=== PATIENT | male | born 1945 | race Caucasian/White ===

== ENCOUNTER 2016-10-20 17:25 | Inpatient (IN) | payer OTHER ==
[~2016-10-20] VITALS: Ht 170.2 cm; Wt 70.8 kg
[2016-10-20 17:32] VITALS: BP 107/58
--- NOTE | 2016-10-20 17:38 | NUR ---
Patient to bed 04.
--- NOTE | 2016-10-20 17:38 | NUR ---
PATIENT PRESENTS TO ED WITH generalized weakness, fatigue, intermittent dysuria x 1 month . PT STATES . moderate nausea with poor appetite SKIN IS PINK/WARM/DRY; AAOX4 WITH EVEN AND STEADY GAIT; LUNGS CLEAR BL; HR EVEN AND REGULAR; PT DENIES ANY FEVER, CP, SOB, OR COUGH AT THIS TIME; PATIENT STATES PAIN OF 0/10 AT THIS TIME; VSS; PATIENT POSITIONED FOR COMFORT; HOB ELEVATED; BEDRAILS UP X2; BED DOWN. ER MD MADE AWARE OF PT STATUS.
--- NOTE | 2016-10-20 17:40 | NUR ---
Dr. Durham evaluating patient at bedside.
--- NOTE | 2016-10-20 17:59 | NUR ---
X-Ray at bedside.
[2016-10-20] MEDS ORDERED: cefTRIAXone 1,000 MG VIAL ONE (18:04)
[2016-10-20 18:10] LABS: HEMATOCRIT 46.4 % (36-52); HEMOGLOBIN 15.3 g/dL (12.0-18.0); MEAN CORPUSCULAR HEMOGLOBIN 32 pg (27-31); MEAN CORPUSCULAR HGB CONC 33 g/dL (33-37); MEAN CORPUSCULAR VOLUME 98 fL (80-94); PLATELET COUNT (AUTO) 182 K/uL (140-450); RED BLOOD CELL COUNT(AUTO) 4.75 MIL/uL (4.20-6.10); RED CELL DISTRIBUTION WIDTH 12.5 % (11.6-13.7); WHITE BLOOD COUNT (AUTO) 13.4 K/uL (4.8-10.8)
[2016-10-20] MEDS ORDERED: NACL 0.9% 1,000 ML IV ONE (18:15)
[2016-10-20 18:20] LABS: ANION GAP 14.8 (8-16); CALCIUM 7.8 mg/dL (8.5-10.1); CARBON DIOXIDE 23.5 mmol/L (21-32); CREATININE 1.7 mg/dL (0.7-1.3); POTASSIUM 4.3 mmol/L (3.5-5.1)
[2016-10-20 18:23] LABS: INR 1.2 (0.8-1.2); PARTIAL THROMBOPLASTIN TIME 29.9 secs (22-35.6); PROTHROMBIN TIME 12.2 secs (10.8-13.4)
[2016-10-20 18:26] LABS: TOTAL BILIRUBIN 0.7 mg/dL (0.0-1.0); TOTAL PROTEIN, SERUM 7.9 g/dL (6.4-8.2)
[2016-10-20 18:34] LABS: BAND % (MANUAL) 17 % (0-8); EOSINOPHILS % (MANUAL) 2 % (0-4); LACTIC ACID 2.5 mmol/L (0.4-2.0); LYMPHOCYTES % (MANUAL) 18 % (20-46); MONOCYTES % (MANUAL) 3 % (5-12); NEUTROPHILS % (MANUAL) 60 (43-65); PLATELET ESTIMATE ADEQUATE
--- NOTE | 2016-10-20 18:47 | NUR ---
Pt transferred to Tele rm 123B via [facility]
--- NOTE | 2016-10-20 18:47 | NUR ---
no s/s apparent distress, holding conversation with family member at bedside. denies pain or sob at this time.
[2016-10-20 19:15] VITALS: BP 99/62
--- NOTE | 2016-10-20 19:15 | NUR ---
ADMITTED A70M FROM ER. CAME BY NIKIA ACCOMPANIED BY DAUGHTER. BRUNA Loza4. AMBULATORY. WITH NO ACUTE DISTRESS NOTED. CAME DUE TO ABNORMAL EKG FROM DR. DEMPSEY, WITH UTI . DENIES ANY PAIN NOR DISCOMFORT NOTED. HAS HL ON THE RT FA #[id number], CLEAR AND PATENT. PLACED COMFORTABLY IN BED. SKIN INTACT. VITAL SIGNS TAKEN BP ON LOW SIDE 99/62. PLAN OF CARE DISCUSSED AND VERBALIZED UNDERSTANDING. ON TELE MONITOR. CALL LIGHT AND URINAL PLACED WITHIN EASY REACH, BED ON LOW POSITION. WILL CONTINUE TO MONITOR WHILE FOLLOWING UP ADMIT ORDERS.
[2016-10-20] MEDS ORDERED: ACETAMINOPHEN 325 MG TAB PO PRN (19:30)
[2016-10-20] MEDS ORDERED: HYDROcodone/APAP 7.5/325 MG 1 TAB PO PRN (19:30)
[2016-10-20] MEDS ORDERED: MORPHINE SULFATE 2 MG/ML SYR IVP PRN (19:30)
[2016-10-20] MEDS ORDERED: ONDANSETRON 4 MG/2 ML VIAL IM/IVP PRN (19:30)
[2016-10-20] MEDS ORDERED: DOCUSATE SODIUM 100 MG GELCAP PO PRN (19:30)
--- NOTE | 2016-10-20 20:45 | NUR ---
US KIDNEY DONE AT BEDSIDE . WILL FOLLOW UP RESULT.
[2016-10-20] MEDS: NACL 0.9% 1,000 ML IV SCH (21:59)
[2016-10-20] MEDS ORDERED: DEXTROSE 50% 50 ML SYR IVP PRN (22:00)
[2016-10-20] MEDS ORDERED: RIVA20TA4 PO (22:39)
[2016-10-20] MEDS ORDERED: SITA100T8 PO (22:39)
[2016-10-20] MEDS ORDERED: METO50TA69 PO (22:39)
[2016-10-20] MEDS ORDERED: ATOR40TA PO (22:43)
[2016-10-20] MEDS ORDERED: METF500T PO (22:43)
[2016-10-20] MEDS ORDERED: SPIR50TA PO (22:43)
[2016-10-20] MEDS ORDERED: LISI5TAB18 PO (22:43)
--- NOTE | 2016-10-20 22:48 | NUR ---
US VENOUS AND ARTERIAL DONE AT BEDSIDE. . WILL FOLLOW UP RESULTS.
[2016-10-20 23:48] VITALS: BP 118/72
--- NOTE | 2016-10-21 00:05 | NUR ---
SLEEPING AT THIS TIME. NO S/SF ANY DISTRESS NOR DISCOMFORT NOTED. WILL CONTINUE TO MONITOR.
--- NOTE | 2016-10-21 03:30 | NUR ---
PT EATING SOME SANDWICH AT THIS TIME.
[2016-10-21 04:00] VITALS: BP 125/69
[2016-10-21 04:29] LABS: APPEARANCE,URINE SL CLOUDY (CLEAR); BILIRUBIN,URINE NEGATIVE (NEGATIVE); BLOOD, URINE 1+ (NEGATIVE); COLOR,URINE YELLOW (YELLOW); LEUKOCYTE ESTERASE ,URINE TRACE (NEGATIVE); NITRITE, URINE NEGATIVE (NEGATIVE); PROTEIN,URINE NEGATIVE (NEGATIVE); UGLUCOSE NEGATIVE (NEGATIVE); UROBILINOGEN,URINE 0.2 EU/dL (0.2 - 1)
--- NOTE | 2016-10-21 04:30 | NUR ---
URINE SPECIMEN FOR UA SEND TO LAB . WILL FOLLOW UP RESULT.
[2016-10-21 04:42] LABS: BACTERIA,URINE FEW /HPF (None Seen)
[2016-10-21 04:43] LABS: SQUAMOUS EPITHELIAL CELL,UR 0-3 (FEW) /LPF (0-3 (FEW)); WHITE BLOOD CELL CASTS,URINE 0-3 /LPF (None Seen)
[2016-10-21 06:13] LABS: BASOPHILS # (AUTO) 0.1 K/uL (0.00-0.22); BASOPHILS % (AUTO) 0.7 % (0.0-2.0); EOSINOPHILS # (AUTO) 0.2 K/uL (0-0.4); EOSINOPHILS % (AUTO) 2.1 % (0.0-4.0); HEMATOCRIT 36.7 % (36-52); HEMOGLOBIN 12.4 g/dL (12.0-18.0); LYMPHOCYTES # (AUTO) 1.9 K/uL (2.0-11.5); LYMPHOCYTES % (AUTO) 16.9 % (20.5-51.1); MEAN CORPUSCULAR HEMOGLOBIN 33 pg (27-31); MEAN CORPUSCULAR HGB CONC 34 g/dL (33-37); MEAN CORPUSCULAR VOLUME 97 fL (80-94); MONOCYTES % (AUTO) 9.2 % (1.7-9.3); NEUTROPHILS # (AUTO) 8.2 K/uL (1.8-7.7); NEUTROPHILS % (AUTO) 71.1 % (42.2-75.2); PLATELET COUNT (AUTO) 157 K/uL (140-450); RED BLOOD CELL COUNT(AUTO) 3.77 MIL/uL (4.20-6.10); RED CELL DISTRIBUTION WIDTH 12.4 % (11.6-13.7); WHITE BLOOD COUNT (AUTO) 11.4 K/uL (4.8-10.8)
[2016-10-21 06:36] LABS: T4 (THYROXINE) 7.6 ug/dL (4.5-12.0)
[2016-10-21 06:38] LABS: ANION GAP 12.2 (8-16); CARBON DIOXIDE 21.6 mmol/L (21-32); CREATININE 1.2 mg/dL (0.7-1.3); POTASSIUM 3.8 mmol/L (3.5-5.1)
[2016-10-21] MEDS: NACL 0.9% 1,000 ML IV SCH ×3 (06:41→18:36)
[2016-10-21 06:46] LABS: CHOL/HDL RATIO 5.2 (1-4.5); PHOSPHORUS 2.7 mg/dL (2.5-4.9)
[2016-10-21] MEDS: BLOOD GLUCOSE MONITORING 1 DEV DEV FS SCH ×4 (06:48→20:16)
[2016-10-21] MEDS: INSULIN LISPRO SLIDING SCALE 100 UNITS/ML VIAL SUBQ PRN ×4 (06:50→21:20)
--- NOTE | 2016-10-21 06:50 | NUR ---
BLOOD SUGAR WAS CHECKED RESULT 200. INSULIN COVERAGE GIVEN SUB Q.
[2016-10-21 07:08] LABS: MAGNESIUM 0.8 mg/dL (1.8-2.4)
--- NOTE | 2016-10-21 07:12 | NUR ---
MAGNESIUM LEVEL 0.[address] WESLEY MADE AWARE. WILL SEE PT THIS AM.
--- NOTE | 2016-10-21 07:20 | NUR ---
RECEIVED REPORT FROM NIGHT NURSE, PT IS AAOX4, ON ROOM AIR, IV TO RIGHT FA 20G INFUSING WELL , SKIN INTACT, SCD'S NOTED, INITIAL ASSESSMENT COMPLETED, REVIEWED PLAN OF CARE WITH PT, PT VERBALIZED UNDERSTANDING. ALL SAFETY PRECAUTIONS MET, ALL NEEDS MET. CALL LIGHT WITHIN REACH. WILL CONTINUE TO MONITOR.
--- NOTE | 2016-10-21 07:20 | NUR ---
ENDORSED PT IN STABLE CONDITION TO AM NURSE.
[2016-10-21] MEDS ORDERED: MAG SULF 2000 MG/WATER PREMIX 50 ML IV SCH (07:31)
[2016-10-21 07:39] VITALS: BP 116/69
[2016-10-21] MEDS: SPIRONOLACTONE 50 MG TAB PO SCH (08:24)
[2016-10-21] MEDS: RIVAROXABAN 10 MG TAB PO SCH (08:33)
--- NOTE | 2016-10-21 08:33 | NUR ---
DUE MEDICATIONS GIVEN PT TOLERATED WELL, BP WNL BP MEDICATION NOT GIVEN.
[2016-10-21] MEDS: LISINOPRIL 5 MG TAB PO SCH (08:34)
[2016-10-21] MEDS: METOPROLOL 50 MG TAB PO SCH (08:34)
--- NOTE | 2016-10-21 09:17 | NUR ---
PATIENT HAS BEEN SCREENED AND CATEGORIZED HIGH NUTRITION RISK. PATIENT WILL BE SEEN WITHIN 1-2 DAYS OF ADMISSION. 10/21/16-10/22/[address]
--- NOTE | 2016-10-21 11:31 | NUR ---
CM NOTE INITIAL REVIEW FAXED TO [facility] (FAX# [phone], ATTN: BRITNI Mcdonald [phone]) AND [facility] (FAX# [phone], C: [phone], OPT 3,7,1) [facility] TRACKING #[id number]
[2016-10-21 12:00] VITALS: BP 115/60
--- NOTE | 2016-10-21 12:13 | NUR ---
10/21/16 RD INITIAL ASSESSMENT COMPLETED PLEASE REFER TO NUTRITION ASSESSMENT UNDER CARE ACTIVITY FOR ESTIMATED NUTRITIONAL NEEDS. 1. CONTINUE 60 G CONSISTENT CARBOHYDRATE DIET 2. ADD HEALTH SHAKE TID 3. PROVIDE NUTRITION THERAPY EDUCATION NEEDED 4. RD TO FOLLOW-UP 2-3 DAYS; HIGH RISK [address]
--- NOTE | 2016-10-21 12:20 | NUR ---
PT CURRENTLY EATING LUNCH, NO S/S OF DISTRESS NOTED, ALL NEEDS MET. CALL LIGHT WITHIN REACH. WILL CONTINUE TO MONITOR.
--- NOTE | 2016-10-21 14:25 | NUR ---
PT VISITING WITH FAMILY. NO S/S OF DISTRESS NOTED. WILL CONTINUE TO MONITOR.
[2016-10-21 16:00] VITALS: BP 114/74
--- NOTE | 2016-10-21 17:29 | NUR ---
DUE MEDICATION GIVEN. PT CURRENTLY VISITING WITH FAMILY. ALL NEEDS MET. WILL CONTINUE TO MONITOR.
--- NOTE | 2016-10-21 19:30 | NUR ---
RECEIVED REPORT FROM DAY RN AT BEDSIDE, PATIENT IS AAO X4 ON ROOM AIR, NO SOB OR SIGN OF DISTRESS AT THIS TIME, PT DENIES PAIN, IV TO RIGHT FA PATENT AND INTACT, SKIN INTACT, SAFETY MEASURES CHECKED, CALL LIGHT WITHIN REACH. DISCUSSED PLAN OF CARE WITH PATIENT, PATIENT VERBALIZED UNDERSTANDING, WILL CONTINUE TO MONITOR.
--- NOTE | 2016-10-21 19:30 | NUR ---
ENDORSED PLAN OF CARE TO NIGHT NURSE, PT IN STABLE CONDITION.
[2016-10-21 20:00] VITALS: BP 144/66
--- NOTE | 2016-10-21 20:18 | NUR ---
PM MEDS ADMINISTERED, PT TOLERATED WELL, CALL LIGHT WITHIN REACH. WILL CONTINUE TO MONITOR.
[2016-10-21] MEDS ORDERED: ATORVASTATIN 20 MG TAB PO SCH (21:00)
[2016-10-22] VITALS: BP 115/60
--- NOTE | 2016-10-22 00:27 | NUR ---
VITAL SIGNS STABLE, NO SOB OR SIGN OF DISTRESS AT THIS TIME, CALL LIGHT WITHIN REACH. WILL CONTINUE TO MONITOR.
--- NOTE | 2016-10-22 02:30 | NUR ---
PT SLEEPING, NO SIGN OF DISTRESS, CALL LIGHT WITHIN REACH. WILL CONTINUE TO MONITOR.
[2016-10-22 04:00] VITALS: BP 126/72
--- NOTE | 2016-10-22 04:00 | NUR ---
PT STATED HE WOKE UP AND HIS GOWN AND HAIR WERE ALL YET AND DIDNT KNOW WHY, CHECKED BLOOD SUGAR, 127, NO FEVER, PT NOT IN ANY DISTRESS, CALL LIGHT WITHIN REACH. WILL CONTINUE TO MONITOR.
--- NOTE | 2016-10-22 04:35 | NUR ---
VITAL SIGNS STABLE, NO SOB OR SIGN OF DISTRESS, CALL LIGHT WITHIN REACH. WILL CONTINUE TO MONITOR.
[2016-10-22 06:08] LABS: BASOPHILS # (AUTO) 0.2 K/uL (0.00-0.22); BASOPHILS % (AUTO) 1.4 % (0.0-2.0); EOSINOPHILS # (AUTO) 0.4 K/uL (0-0.4); EOSINOPHILS % (AUTO) 2.9 % (0.0-4.0); HEMATOCRIT 38.8 % (36-52); HEMOGLOBIN 12.9 g/dL (12.0-18.0); LYMPHOCYTES # (AUTO) 2.3 K/uL (2.0-11.5); LYMPHOCYTES % (AUTO) 18.6 % (20.5-51.1); MEAN CORPUSCULAR HEMOGLOBIN 32 pg (27-31); MEAN CORPUSCULAR HGB CONC 33 g/dL (33-37); MEAN CORPUSCULAR VOLUME 97 fL (80-94); MONOCYTES # (AUTO) 1.3 K/uL (0.8-1.0); MONOCYTES % (AUTO) 10.8 % (1.7-9.3); NEUTROPHILS # (AUTO) 8.2 K/uL (1.8-7.7); NEUTROPHILS % (AUTO) 66.3 % (42.2-75.2); PLATELET COUNT (AUTO) 176 K/uL (140-450); RED BLOOD CELL COUNT(AUTO) 4.01 MIL/uL (4.20-6.10); RED CELL DISTRIBUTION WIDTH 12.6 % (11.6-13.7); WHITE BLOOD COUNT (AUTO) 12.4 K/uL (4.8-10.8)
[2016-10-22 06:28] LABS: ANION GAP 9.6 (8-16); CALCIUM 7.4 mg/dL (8.5-10.1); CARBON DIOXIDE 26.5 mmol/L (21-32); POTASSIUM 4.1 mmol/L (3.5-5.1)
[2016-10-22 06:31] LABS: PHOSPHORUS 2.6 mg/dL (2.5-4.9)
[2016-10-22] MEDS: BLOOD GLUCOSE MONITORING 1 DEV DEV FS SCH ×3 (06:38→16:38)
--- NOTE | 2016-10-22 07:31 | NUR ---
ENDORSED PATIENT TO DAY RN AT BEDSIDE, PATIENT IN STABLE CONDITION
[2016-10-22 07:50] VITALS: BP 121/71
[2016-10-22] MEDS: SPIRONOLACTONE 50 MG TAB PO SCH (08:48)
[2016-10-22] MEDS: METOPROLOL 50 MG TAB PO SCH (08:48)
[2016-10-22] MEDS: RIVAROXABAN 10 MG TAB PO SCH (08:51)
[2016-10-22] MEDS: LISINOPRIL 5 MG TAB PO SCH (08:51)
--- NOTE | 2016-10-22 08:51 | NUR ---
DUE MEDICATION GIVEN, PT TOLERATED WELL. ALL NEEDS MET. WILL CONTINUE TO MONITOR,
[2016-10-22] MEDS ORDERED: MAG SULF 2000 MG/WATER PREMIX 50 ML IV SCH ×2 (09:45→12:00)
--- NOTE | 2016-10-22 11:20 | NUR ---
PT RESTING IN BED. O S/S OF DISTRESS NOTED. ALL NEEDS MET. WILL CONTINUE TO MONITOR.
[2016-10-22] MEDS: NACL 0.9% 1,000 ML IV SCH (11:28)
[2016-10-22 12:00] VITALS: BP 97/67
--- NOTE | 2016-10-22 12:08 | NUR ---
CM NOTE CONCURRENT REVIEW FAXED TO [facility] (FAX# [phone], ATTN: BRITNI Mcdonald [phone]) AND [facility] (FAX# [phone], C: [phone], OPT 3,7,1)
[2016-10-22] MEDS: INSULIN LISPRO SLIDING SCALE 100 UNITS/ML VIAL SUBQ PRN (12:37)
--- NOTE | 2016-10-22 12:37 | NUR ---
DUE MEDICATIONS GIVEN.ALL NEEDS MET. WILL CONTINUE TO MONITOR.
--- NOTE | 2016-10-22 14:15 | NUR ---
PT RESTING IN BED, NO S/S OF DISTRESS NOTED. ALL NEEDS MET. WILL CONTINUE TO MONITOR.
[2016-10-22 16:00] VITALS: BP 116/75
[2016-10-22] MEDS ORDERED: SULF-58 PO (16:33)
[2016-10-22] MEDS ORDERED: LACT1.4C PO (16:37)
--- NOTE | 2016-10-22 17:05 | NUR ---
DISCUSSED DISCHARGE PLAN WITH PT, PT VERBALIZED UNDERSTANDING
--- NOTE | 2016-10-22 17:49 | NUR ---
PT SIGNED ALL DISCHARGE PAPERWORK, DISCHARGE EDUCATION GIVEN, FOLLOW UP INFORMATION GIVEN, PRESCRIPTION GIVEN, PT VERBALIZED UNDERSTANDING, IV REMOVED TIP INTACT, PT AWAITING FOR FAMILY TO PICK HIM UP.
--- NOTE | 2016-10-22 18:51 | NUR ---
PT WAS WALKED OUT TO FRONT LOBBY IN STABLE CONDITION.
== END 2016-10-22 18:53 | disposition home or self-care (01) | DRG 871 ==
LOC: MED 17:25 → MTU 18:49
PROVIDERS: ADMIT Family Medicine; ATTEND Family Medicine
DX: A41.9 Sepsis, unspecified organism (principal); G93.41 Metabolic encephalopathy; N17.0 Acute kidney failure with tubular necrosis; I50.43 Acute on chronic combined systolic (congestive) and diastolic (congestive) heart failure; N39.0 Urinary tract infection, site not specified; E87.1 Hypo-osmolality and hyponatremia; E44.0 Moderate protein-calorie malnutrition; E11.65 Type 2 diabetes mellitus with hyperglycemia; E83.42 Hypomagnesemia; I11.0 Hypertensive heart disease with heart failure; I44.7 Left bundle-branch block, unspecified; Z96.651 Presence of right artificial knee joint; E86.0 Dehydration; E83.51 Hypocalcemia; Z53.29 Procedure and treatment not carried out because of patient's decision for other reasons; I48.91 Unspecified atrial fibrillation; E11.51 Type 2 diabetes mellitus with diabetic peripheral angiopathy without gangrene; E78.5 Hyperlipidemia, unspecified; Z68.24 Body mass index [BMI] 24.0-24.9, adult; Z79.899 Other long term (current) drug therapy; Z87.891 Personal history of nicotine dependence
CPT/HCPCS: 36415; 71010; 76770; 80048; 80053; 81001; 82550; 82553; 82948; 83036; 83605; 83735; 83874; 83880; 84100; 84436; 84443; 84479; 84484; 85025; 85610; 85730; 87040; 87077; 87081; 87086; 87186; 93005; 93308; 93925; 93970; 96365; 99285; J0696; J1815; J3475; J7030; J7060; Q0092

== ENCOUNTER 2018-07-25 12:49 | Inpatient (IN) | payer OTHER ==
--- NOTE | 2018-07-18 22:10 | NUR ---
Frequent checks made, no distress noted. Addendum: 07/27/18 at 0133 by Samir Hilario RN Date is 07/26/2018 not 07/18/2018
[~2018-07-25] VITALS: Ht 170.2 cm; Wt 81.6 kg
[~2018-07-25 12:49] MED LIST: ATOR40TA PO; LACT1.4C PO; LISI5TAB18 PO; METF500T PO; METO50TA20 PO; RIVA20TA4 PO; SITA100T8 PO; SPIR50TA PO; SULF-58 PO
[2018-07-25 13:08] VITALS: BP 124/74
--- NOTE | 2018-07-25 13:25 | NUR ---
PT AMBULATED TO ER BED 03
--- NOTE | 2018-07-25 13:31 | NUR ---
BIB DAUGHTER WITH C/O SOB FOR ONE WEEK, COUGH, REFERRED FROM PMD. HX OF AFIB, HTN, DM. PATIENT STATES PAIN OF 0/10 AT THIS TIME. PATIENT POSITIONED FOR COMFORT; HOB ELEVATED; BEDRAILS UP X2; BED DOWN. ER MD MADE AWARE OF PT STATUS.
--- NOTE | 2018-07-25 13:45 | NUR ---
X RAY AT BEDSIDE
--- NOTE | 2018-07-25 13:47 | NUR ---
EKG AT BEDSIDE
[2018-07-25 14:32] LABS: BASOPHILS # (AUTO) 0.1 K/uL (0.00-0.22); BASOPHILS % (AUTO) 0.7 % (0.0-2.0); EOSINOPHILS # (AUTO) 0.2 K/uL (0-0.4); EOSINOPHILS % (AUTO) 1.9 % (0.0-4.0); HEMATOCRIT 38.9 % (36-52); HEMOGLOBIN 12.3 g/dL (12.0-18.0); LYMPHOCYTES # (AUTO) 1.9 K/uL (2.0-11.5); LYMPHOCYTES % (AUTO) 20.3 % (20.5-51.1); MEAN CORPUSCULAR HEMOGLOBIN 26 pg (27-31); MEAN CORPUSCULAR HGB CONC 32 g/dL (33-37); MEAN CORPUSCULAR VOLUME 83.5 fL (80-94); MONOCYTES # (AUTO) 0.9 K/uL (0.8-1.0); MONOCYTES % (AUTO) 9.7 % (1.7-9.3); NEUTROPHILS # (AUTO) 6.5 K/uL (1.8-7.7); NEUTROPHILS % (AUTO) 67.4 % (42.2-75.2); PLATELET COUNT (AUTO) 192 K/uL (140-450); RED BLOOD CELL COUNT(AUTO) 4.67 MIL/uL (4.20-6.10); RED CELL DISTRIBUTION WIDTH 15.8 % (11.6-13.7); WHITE BLOOD COUNT (AUTO) 9.6 K/uL (4.8-10.8)
[2018-07-25 14:58] LABS: ANION GAP 9.7 (8-16); CARBON DIOXIDE 28.6 mmol/L (21-32); CHLORIDE 107 mmol/L (98-107); CREATININE 1.4 mg/dL (0.7-1.3); GLUCOSE 194 mg/dL (74-106); POTASSIUM 4.3 mmol/L (3.5-5.1); SODIUM SERUM 141 mmol/L (136-145); UREA NITROGEN, BLOOD 27 mg/dL (7-18)
[2018-07-25 15:00] LABS: ALBUMIN 3.3 g/dL (3.4-5.0); ASPARTATE AMINOTRANSFERASE 37 U/L (15-37); TOTAL BILIRUBIN 0.9 mg/dL (0.0-1.0)
[2018-07-25 15:21] LABS: CREATINE KINASE MB 6.2 ng/mL (0-3.6)
[2018-07-25] MEDS ORDERED: FUROSEMIDE 40 MG/4 ML VIAL IVP SCH (15:50)
--- NOTE | 2018-07-25 16:05 | NUR ---
Patient appears to be resting comfortably in bed.BP 133/87. Respirations even and unlabored.DENIES SOB OR PAIN AT THIS TIME. WILL CONTINUE TO MONITOR.
--- NOTE | 2018-07-25 16:31 | NUR ---
PT URENATED 350 CC; YELLOW.
[2018-07-25] MEDS ORDERED: DOCUSATE SODIUM 100 MG GELCAP PO PRN (19:00)
[2018-07-25] MEDS ORDERED: ONDANSETRON 4 MG/2 ML VIAL IM/IVP PRN (19:00)
[2018-07-25] MEDS ORDERED: ACETAMINOPHEN 325 MG TAB PO PRN (19:00)
[2018-07-25] MEDS ORDERED: HYDROcodone/APAP 7.5/325 MG 1 TAB PO PRN (19:00)
[2018-07-25] MEDS ORDERED: LEVO0.124 PO (19:04)
[2018-07-25] MEDS ORDERED: AMIO200T5 PO (19:04)
[2018-07-25] MEDS ORDERED: FURO-572 PO (19:04)
[2018-07-25] MEDS ORDERED: RIVA20TA PO (19:04)
[2018-07-25] MEDS ORDERED: TERA5CAP8 PO (19:04)
[2018-07-25] MEDS ORDERED: ASPI-1718 PO (19:04)
--- NOTE | 2018-07-25 19:12 | NUR ---
Pt report given to CELESTE MOHR. Transfer of care at this time.
--- NOTE | 2018-07-25 19:20 | NUR ---
Bedside report recieved from ONUR Hudson. Transfer of care at this time.
[2018-07-25] MEDS ORDERED: MEDICATION REC. PHARMACY CONS. 1 EA MISC MC PRN (19:30)
[2018-07-25] MEDS ORDERED: MELATONIN 3 MG TAB PO PRN (19:30)
--- NOTE | 2018-07-25 19:30 | NUR ---
RECEIVED BEDSIDE REPORT FROM ER NURSE. PT IN STABLE CONDITION. FAMILY AT BEDSIDE. AAOX4. PT AMBULATES WITHOUT ASSISTANCE. NO C/O PAIN OR SOB AT THIS TIME ON ROOM AIR. SKIN INTACT. IV SITE LAC G20, PATENT AND INTACT. ORIENTED PT TO ROOM. DISCUSSED PLAN OF CARE. PT VERBALIZED UNDERSTANDING. BED IN LOW POSITION. CALL LIGHT WITHIN REACH.
--- NOTE | 2018-07-25 19:31 | NUR ---
Patient will be admitted to care of Dr. Garcia. Admited to [facility]. Will go to room 127B. Belongings list completed. VSS at time of transfer. Report to ONUR Brock. Transfer of care at this time.
[2018-07-25] MEDS ORDERED: DEXTROSE 50% 50 ML SYR IVP PRN (19:35)
[2018-07-25 19:50] LABS: FREE T4 (FREE THYROXINE) 1.27 ng/dL (0.76-1.46); MAGNESIUM 1.6 mg/dL (1.8-2.4); PHOSPHORUS 3.6 mg/dL (2.5-4.9); THYROID STIMULATING HORMONE 4.47 uIU/mL (0.34-3.74)
[2018-07-25] MEDS: NACL 0.9% 1,000 ML IV SCH (19:50)
[2018-07-25 19:59] LABS: PROTHROMBIN TIME 15.1 secs (10.8-13.4)
[2018-07-25 20:00] VITALS: BP 138/80
[2018-07-25] MEDS ORDERED: FUROSEMIDE 20 MG/2 ML VIAL IVP SCH (21:00)
[2018-07-25] MEDS: ATORVASTATIN 20 MG TAB PO SCH (21:34)
[2018-07-25] MEDS: METOPROLOL 25 MG TAB PO SCH (21:34)
[2018-07-25] MEDS: INSULIN LISPRO SLIDING SCALE 100 UNITS/ML VIAL SUBQ PRN (21:36)
[2018-07-25] MEDS: BLOOD GLUCOSE MONITORING 1 DEV DEV FS SCH (21:37)
--- NOTE | 2018-07-25 21:40 | NUR ---
BS CHECKED, 176. GIVEN 2 UNITS OF INSULIN ORDERED. DUE MEDS GIVEN. PT TOLERATED WELL.
[2018-07-25] MEDS ORDERED: MAG SULF 2000 MG/WATER PREMIX 50 ML IV ONE (23:00)
--- NOTE | 2018-07-25 23:45 | NUR ---
APPLIED SCD ON PT'S BOTH LEG. ALL NEEDS ATTENDED AT THIS TIME. CALL LIGHT WITHIN REACH.
[2018-07-26] VITALS: BP 121/68
--- NOTE | 2018-07-26 02:45 | NUR ---
PT SPILLED WATER ON HIS GOWN. ASSISTED PT TO CHANGE GOWN AND UNDERWEAR. ALL NEEDS ATTENDED AT THIS TIME.
--- NOTE | 2018-07-26 04:30 | NUR ---
PT SLEEPING BUT EASILY AROUSABLE. NO S/S OF SOB. NO S/S OF PAIN OR DISCOMFORT. CALL LIGHT WITHIN REACH.
[2018-07-26] MEDS: BLOOD GLUCOSE MONITORING 1 DEV DEV FS SCH ×4 (05:38→21:14)
--- NOTE | 2018-07-26 06:17 | NUR ---
BS CHECKED, 140. NO INSULIN COVERAGE NEEDED.
[2018-07-26] MEDS ORDERED: LEVOTHYROXINE 0.025 MG TAB PO SCH (06:30)
[2018-07-26 06:54] LABS: ANION GAP 12.2 (8-16); CARBON DIOXIDE 26.3 mmol/L (21-32); CHLORIDE 108 mmol/L (98-107); CREATININE 1.3 mg/dL (0.7-1.3); GLUCOSE 141 mg/dL (74-106); POTASSIUM 3.5 mmol/L (3.5-5.1); SODIUM SERUM 143 mmol/L (136-145); UREA NITROGEN, BLOOD 25 mg/dL (7-18)
[2018-07-26 06:55] LABS: MAGNESIUM 1.6 mg/dL (1.8-2.4); PHOSPHORUS 3.9 mg/dL (2.5-4.9)
--- NOTE | 2018-07-26 07:22 | NUR ---
ENDORSED PATIENT TO DAY SHIFT NURSE. PT IN STABLE CONDITION. NO S/S OF SOB OR ANY DISCOMFORT NOTED.
[2018-07-26 07:28] LABS: BASOPHILS % (AUTO) 0.5 % (0.0-2.0); EOSINOPHILS # (AUTO) 0.4 K/uL (0-0.4); EOSINOPHILS % (AUTO) 4.4 % (0.0-4.0); HEMATOCRIT 37.6 % (36-52); HEMOGLOBIN 12.1 g/dL (12.0-18.0); LYMPHOCYTES # (AUTO) 2.1 K/uL (2.0-11.5); LYMPHOCYTES % (AUTO) 21.2 % (20.5-51.1); MEAN CORPUSCULAR HEMOGLOBIN 27 pg (27-31); MEAN CORPUSCULAR HGB CONC 32 g/dL (33-37); MEAN CORPUSCULAR VOLUME 82.6 fL (80-94); MONOCYTES # (AUTO) 0.9 K/uL (0.8-1.0); MONOCYTES % (AUTO) 9.4 % (1.7-9.3); NEUTROPHILS # (AUTO) 6.2 K/uL (1.8-7.7); NEUTROPHILS % (AUTO) 64.5 % (42.2-75.2); PLATELET COUNT (AUTO) 176 K/uL (140-450); RED BLOOD CELL COUNT(AUTO) 4.55 MIL/uL (4.20-6.10); RED CELL DISTRIBUTION WIDTH 15.6 % (11.6-13.7); WHITE BLOOD COUNT (AUTO) 9.7 K/uL (4.8-10.8)
--- NOTE | 2018-07-26 07:30 | NUR ---
RECEIVED PT REPORT FROM ADOPTION MANAGER NURSE AT BEDSIDE, PT IS ASLEEP AT THIS TIME, NO S/S OF ACUTE DISTRESS, SOB, OR C/O PAIN. PT IS ON ROOM AIR, SKIN INTACT. IV SITE NOTED ON THE LAC 20 G, INFUSING NS 40 ML/HR. CALL LIGHT IS WITHIN REACH, WILL CONTINUE TO MONITOR.
[2018-07-26 08:00] VITALS: BP 113/89
--- NOTE | 2018-07-26 08:27 | NUR ---
PATIENT HAS BEEN SCREENED AND CATEGORIZED MODERATE NUTRITION RISK. PATIENT WILL BE SEEN WITHIN 3-5 DAYS OF ADMISSION. 07/28/18[address] TE[address] RD
--- NOTE | 2018-07-26 09:12 | NUR ---
PT AMBULATING WITH PT AT THIS TIME
[2018-07-26] MEDS: LISINOPRIL 5 MG TAB PO SCH (09:30)
[2018-07-26] MEDS: METOPROLOL 25 MG TAB PO SCH ×2 (09:31→21:00)
[2018-07-26] MEDS: ASPIRIN 81 MG TAB.CHEW PO SCH (09:31)
[2018-07-26] MEDS: metFORMIN 500 MG TAB PO SCH ×2 (09:31→17:17)
[2018-07-26] MEDS: FUROSEMIDE 40 MG/4 ML VIAL IVP SCH ×2 (09:32→21:00)
[2018-07-26] MEDS: AMIODARONE 200 MG TAB PO SCH (09:32)
[2018-07-26] MEDS: TERAZOSIN 1 MG CAP PO SCH (09:38)
[2018-07-26] MEDS ORDERED: MAG SULF 2000 MG/WATER PREMIX 50 ML IV SCH (10:30)
--- NOTE | 2018-07-26 12:15 | NUR ---
MAG GARFIELD PRINCE AND DRIPPING PER MD ORDER FIR MAGNESIUM OF 1.6
[2018-07-26] MEDS: INSULIN LISPRO SLIDING SCALE 100 UNITS/ML VIAL SUBQ PRN ×2 (12:41→21:35)
--- NOTE | 2018-07-26 13:02 | NUR ---
PT CARE ENDORSED TO ONUR GOOD.
--- NOTE | 2018-07-26 13:03 | NUR ---
GOT BEDSIDE REPORT FROM ONUR ORTA. PATIENT ON TELE MONITOR AND STANDARD PRECAUTIONS IN PLACE. PATIENT AAOX4 AND ON ROOM AIR, NO DISTRESS NOTED. SKIN INTACT. IV ON L AC 20 G INFUSING NS AT 40, IV ASYMPTOMATIC PATENT AND INTACT. PATIENT ABLE TO AMBULATE AND CONTINENT. BED IN LOW POSITION, CALL LIGHT WITHIN REACH, SIDE RAILS X2 UP
--- NOTE | 2018-07-26 15:11 | NUR ---
I met patient at bedside and explained to patient that i will obtain and verify information with him and patient agreed. Patient lives with his daughter Meme and plans to return there upon discharge. Patient is independent with his ADLs and he is using a weekly pill container for his medicine. His daughter help him to fruit or nut picker his medications from [facility] in [place]. Patient was not receiving any home health services prior to hospitalization and was not using any DME at home. Patient does not have any advance directive. Provided advance directive packet to patient in both hebrew and thai. Instructed patient to follow-up with Dr Gallegos after discharge here in the hospital and to provide him with all discharge instructions. Patient verbalized understanding. Patient has no questions and concerns at this time. Emphasized to patient to let us know if needed help, or if there is any questions and concerns while he is here in the hospital. Patient also verbalized that he is happy with his care here in [facility].
[2018-07-26 16:00] VITALS: BP 93/60
--- NOTE | 2018-07-26 16:00 | NUR ---
PATIENT ON ROOM AIR, NO DISTRESS NOTED. DAUGHTER AT BEDSIDE
[2018-07-26] MEDS: RIVAROXABAN 10 MG TAB PO SCH (17:19)
--- NOTE | 2018-07-26 19:27 | NUR ---
BEDSIDE REPORT GIVEN TO ONUR PEÑA. PATIENT ENDORSED IN STABLE CONDITION
--- NOTE | 2018-07-26 19:40 | NUR ---
Received endorsement from AM shift RN; patient is A/Ox4, able to make needs known, ambulatory. Patient is watching TV. Introduced self, updated board. No SOB or distress noted, on room air. IV site on left antecubital, 20 gauge, intact with AVF running at 40mL/hr. Bed in the lowest position, call light within reach. Initial assessment done. Will continue to monitor.
[2018-07-26 20:00] VITALS: BP 100/63
--- NOTE | 2018-07-26 20:10 | NUR ---
Frequent checks made, no distress noted.
--- NOTE | 2018-07-26 20:40 | NUR ---
BP 100/63; Dr. Starkey made aware. Did not administer Lasix and Metoprolol due to decreased BP. Will continue to monitor.
--- NOTE | 2018-07-26 20:46 | NUR ---
Vitals taken, due meds given, tolerated well.
[2018-07-26] MEDS: ATORVASTATIN 20 MG TAB PO SCH (21:11)
[2018-07-26] MEDS: NACL 0.9% 1,000 ML IV SCH (21:36)
--- NOTE | 2018-07-26 22:10 | NUR ---
Rounds done, no SOB or distress noted.
[2018-07-27] VITALS: BP 93/63
--- NOTE | 2018-07-27 00:08 | NUR ---
Vitals taken. Patient asleep, eyes closed, visible chest rise and fall noted.
--- NOTE | 2018-07-27 02:05 | NUR ---
Checks made, no distress noted. Patient asleep on right lateral side.
[2018-07-27 04:00] VITALS: BP 118/64
--- NOTE | 2018-07-27 04:30 | NUR ---
Vitals taken, no distress noted. Assisted patient to go to the bathroom. Patient had a BM at this time.
[2018-07-27] MEDS: LEVOTHYROXINE 0.1 MG, LEVOTHYROXINE 0.025 MG PO SCH ×2 (05:43)
[2018-07-27 06:28] LABS: BASOPHILS % (AUTO) 0.5 % (0.0-2.0); EOSINOPHILS # (AUTO) 0.4 K/uL (0-0.4); EOSINOPHILS % (AUTO) 4.7 % (0.0-4.0); HEMATOCRIT 34.4 % (36-52); LYMPHOCYTES # (AUTO) 2.1 K/uL (2.0-11.5); LYMPHOCYTES % (AUTO) 26.1 % (20.5-51.1); MEAN CORPUSCULAR HEMOGLOBIN 26 pg (27-31); MEAN CORPUSCULAR HGB CONC 32 g/dL (33-37); MEAN CORPUSCULAR VOLUME 82.4 fL (80-94); MONOCYTES # (AUTO) 0.7 K/uL (0.8-1.0); MONOCYTES % (AUTO) 9.3 % (1.7-9.3); NEUTROPHILS # (AUTO) 4.7 K/uL (1.8-7.7); NEUTROPHILS % (AUTO) 59.4 % (42.2-75.2); PLATELET COUNT (AUTO) 173 K/uL (140-450); RED BLOOD CELL COUNT(AUTO) 4.17 MIL/uL (4.20-6.10); RED CELL DISTRIBUTION WIDTH 15.6 % (11.6-13.7); WHITE BLOOD COUNT (AUTO) 7.9 K/uL (4.8-10.8)
[2018-07-27] MEDS: BLOOD GLUCOSE MONITORING 1 DEV DEV FS SCH ×4 (06:30→20:39)
[2018-07-27] MEDS ORDERED: LEVOTHYROXINE 0.075 MG TAB PO SCH (06:30)
[2018-07-27 06:43] LABS: ANION GAP 9.1 (8-16); CARBON DIOXIDE 29.2 mmol/L (21-32); CHLORIDE 106 mmol/L (98-107); CREATININE 1.4 mg/dL (0.7-1.3); GLUCOSE 122 mg/dL (74-106); POTASSIUM 4.3 mmol/L (3.5-5.1); SODIUM SERUM 140 mmol/L (136-145); UREA NITROGEN, BLOOD 28 mg/dL (7-18)
[2018-07-27 06:51] LABS: MAGNESIUM 1.8 mg/dL (1.8-2.4); PHOSPHORUS 3.9 mg/dL (2.5-4.9)
--- NOTE | 2018-07-27 07:10 | NUR ---
Endorsed patient to AM shift RN for continuity of care. Patient in stable condition.
--- NOTE | 2018-07-27 07:13 | NUR ---
RECEIVED BEDSIDE REPORT FROM CHILI PEPPER GRINDER RN FOR CONTINUITY OF CARE. PT IN STABLE CONDITION. DENIES PAIN AND DISCOMFORT. DENIES SOB. NO S/S DISTRESS. RESPIRATIONS EVEN AND UNLABORED. HEART RHYTHM REGULAR. ACTIVE BS IN ALL QUADRANTS. ABDOMEN SOFT AND NON-DISTENDED. SKIN INTACT. 1+ BLE PITTING EDEMA. PT IS AMBULATORY WITHOUT ASSIST. IV SITE PATENT AND ASYMPTOMATIC, INFUSING IVF PER MD ORDERS. ALL SAFETY PRECAUTIONS IN PLACE, WILL CONTINUE TO MONITOR.
[2018-07-27 08:00] VITALS: BP 108/59
[2018-07-27] MEDS: AMIODARONE 200 MG TAB PO SCH (08:54)
[2018-07-27] MEDS: metFORMIN 500 MG TAB PO SCH ×2 (08:54→17:58)
[2018-07-27] MEDS: ASPIRIN 81 MG TAB.CHEW PO SCH (08:55)
[2018-07-27] MEDS: METOPROLOL 25 MG TAB PO SCH ×2 (08:55→20:39)
[2018-07-27] MEDS: FUROSEMIDE 40 MG/4 ML VIAL IVP SCH ×2 (08:55→20:37)
[2018-07-27] MEDS: LISINOPRIL 5 MG TAB PO SCH (09:00)
--- NOTE | 2018-07-27 09:04 | NUR ---
SCHEDULED MEDICATIONS ADMINISTERED. NON-ADMINISTERED LISINOPRIL- BP ON LOWER SIDE 108/59. ADMINISTERED AMIODARONE, METOPROLOL, LASIX. CALLED PHARMACY FOR HYTRIN- THEY WILL STOCK THE PYXIS. WILL ADMIN WHEN AVAILABLE. ENCOURAGED PT TO AMBULATE IN [facility] HALLWAYS TOLERATED.
[2018-07-27] MEDS: TERAZOSIN 1 MG CAP PO SCH (10:49)
--- NOTE | 2018-07-27 11:06 | NUR ---
URINE SAMPLE SENT TO LAB.
--- NOTE | 2018-07-27 11:07 | NUR ---
NOTIFIED JACKSON DELGADO THAT PER HEIDI, ECHOCARDIOGRAM HAS BEEN COMPLETED.
[2018-07-27] MEDS: INSULIN LISPRO SLIDING SCALE 100 UNITS/ML VIAL SUBQ PRN (11:11)
--- NOTE | 2018-07-27 11:11 | NUR ---
NOTIFIED DR. BUITRAGO THAT PT HAS CARDIAC DIET ORDER WITHOUT CCHO. TO PLACE ORDERS.
[2018-07-27 12:00] VITALS: BP 112/57
[2018-07-27 12:44] LABS: APPEARANCE,URINE CLEAR (CLEAR); BILIRUBIN,URINE NEGATIVE (NEGATIVE); BLOOD, URINE NEGATIVE (NEGATIVE); COLOR,URINE YELLOW (YELLOW); LEUKOCYTE ESTERASE ,URINE NEGATIVE (NEGATIVE); NITRITE, URINE NEGATIVE (NEGATIVE); PH,URINE 5.5 (5.0-9.0); UGLUCOSE NEGATIVE (NEGATIVE)
[2018-07-27 12:54] LABS: BARBITURATE, URINE NEG. ng/ml (NEG <=200); BENZODIAZEPINE, URINE NEG. ng/mL (NEG <=200); CANNABINOID, URINE NEG. ng/mL (NEG <=50); COCAINE, URINE NEG. ng/mL (NEG <=300); OPIATE, URINE NEG. ng/mL (NEG <=2000); PHENCYCLIDINE SCREEN,URINE NEG. ng/mL (NEG <=25)
--- NOTE | 2018-07-27 13:20 | NUR ---
PATIENT RESTING IN BED, NO C/O PAIN OR DISCOMFORT. ALL SAFETY PRECAUTIONS IN PLACE, WILL CONTINUE TO MONITOR.
[2018-07-27 16:00] VITALS: BP 104/64
[2018-07-27] MEDS: NACL 0.9% 1,000 ML IV SCH ×2 (17:58→23:41)
[2018-07-27] MEDS: RIVAROXABAN 10 MG TAB PO SCH (17:58)
--- NOTE | 2018-07-27 19:22 | NUR ---
RECEIVED BEDSIDE REPORT FROM DAY SHIFT RN. PATIENT RESTING IN BED IN STABLE CONDITION. CALL LIGHT IN REACH. SAFETY PRECAUTIONS IN PLACE. IV INFUSING.
--- NOTE | 2018-07-27 19:26 | NUR ---
ENDORSED POC TO MANAGER CONTROL RN. PT IN STABLE CONDITION.
[2018-07-27 20:00] VITALS: BP 109/67
[2018-07-27] MEDS: ATORVASTATIN 20 MG TAB PO SCH (20:37)
--- NOTE | 2018-07-27 20:40 | NUR ---
ADMINISTERED SCHEDULED MEDICATIONS. BP 109/67 HR 69. PATIENT STABLE ON RA. NO C/O PAIN.
--- NOTE | 2018-07-27 22:32 | NUR ---
PATIENT RESTING IN BED. SAFETY PRECAUTIONS IN PLACE. NO SIGNS OF DISTRESS ON RA.
[2018-07-28] VITALS: BP 105/68
--- NOTE | 2018-07-28 00:15 | NUR ---
PATIENT SLEEPING. NO SIGNS OF DISTRESS ON RA.
--- NOTE | 2018-07-28 01:46 | NUR ---
PATIENT IS STILL SLEEPING, WILL CONTINUE TO MONITOR.
[2018-07-28 04:00] VITALS: BP 111/66
--- NOTE | 2018-07-28 04:06 | NUR ---
PATIENT IS STILL SLEEPING. HE HAS REPOSITIONED HIMSELF BUT IS SLEEPING SOUNDLY.
--- NOTE | 2018-07-28 05:49 | NUR ---
PATIENT AWAKE AND IS ASKING ABOUT DISCHARGE. NEEDS TO CALL HIS DAUGHTER TO SEE WHEN SHE IS AVAILABLE TO PICK HIM UP. HE STATES HE DOES NOT HAVE KEYS TO THE HOUSE AND SHE DOES NOT WORK A SET SCHEDULE. WANTS TO BE INFORMED OF DISCHARGE SOON THE ORDER IS PLACED SO THAT HE CAN ARRANGE A RIDE.
[2018-07-28] MEDS: LEVOTHYROXINE 0.1 MG, LEVOTHYROXINE 0.025 MG PO SCH ×2 (06:20)
[2018-07-28] MEDS: BLOOD GLUCOSE MONITORING 1 DEV DEV FS SCH ×2 (06:33→11:35)
[2018-07-28 07:01] LABS: ANION GAP 10.8 (8-16); CARBON DIOXIDE 29.2 mmol/L (21-32); CHLORIDE 105 mmol/L (98-107); CREATININE 1.5 mg/dL (0.7-1.3); GLUCOSE 111 mg/dL (74-106); SODIUM SERUM 141 mmol/L (136-145); UREA NITROGEN, BLOOD 27 mg/dL (7-18)
[2018-07-28 07:05] LABS: MAGNESIUM 1.4 mg/dL (1.8-2.4); PHOSPHORUS 3.9 mg/dL (2.5-4.9)
[2018-07-28 07:17] LABS: BASOPHILS # (AUTO) 0.1 K/uL (0.00-0.22); BASOPHILS % (AUTO) 0.7 % (0.0-2.0); EOSINOPHILS # (AUTO) 0.4 K/uL (0-0.4); EOSINOPHILS % (AUTO) 4.9 % (0.0-4.0); HEMOGLOBIN 11.2 g/dL (12.0-18.0); LYMPHOCYTES # (AUTO) 2.2 K/uL (2.0-11.5); LYMPHOCYTES % (AUTO) 24.6 % (20.5-51.1); MEAN CORPUSCULAR HEMOGLOBIN 27 pg (27-31); MEAN CORPUSCULAR HGB CONC 33 g/dL (33-37); MEAN CORPUSCULAR VOLUME 81.6 fL (80-94); MONOCYTES # (AUTO) 0.9 K/uL (0.8-1.0); NEUTROPHILS # (AUTO) 5.4 K/uL (1.8-7.7); NEUTROPHILS % (AUTO) 59.8 % (42.2-75.2); PLATELET COUNT (AUTO) 178 K/uL (140-450); RED BLOOD CELL COUNT(AUTO) 4.16 MIL/uL (4.20-6.10); RED CELL DISTRIBUTION WIDTH 15.7 % (11.6-13.7); WHITE BLOOD COUNT (AUTO) 8.9 K/uL (4.8-10.8)
--- NOTE | 2018-07-28 07:36 | NUR ---
GAVE BEDSIDE REPORT TO DAY SHIFT RN. PATIENT IN STABLE CONDITION. NO DISTRESS ON RA.
[2018-07-28 08:00] VITALS: BP 124/68
--- NOTE | 2018-07-28 08:00 | NUR ---
PATIENT WAS AWAKE, ALERT, EATING BREAKFAST COMFORTABLY. RESPIRATION EVEN, UNLABOR ON ROOM AIR. SKIN DRY AND WARM. IV PATENT AND INTACT. DENIED PAIN, SOB AT THIS TIME. PLAN OF CARE WAS DISCUSSED WITH PATIENT. BED AT LOW POSITION, SIDE RAILS UP. CALL LIGHT WITHIN REACH. MD WAS AT BEDSIDE
[2018-07-28] MEDS: TERAZOSIN 1 MG CAP PO SCH (08:32)
[2018-07-28] MEDS: AMIODARONE 200 MG TAB PO SCH (08:33)
[2018-07-28] MEDS: FUROSEMIDE 40 MG/4 ML VIAL IVP SCH (08:33)
[2018-07-28] MEDS: metFORMIN 500 MG TAB PO SCH (08:34)
[2018-07-28] MEDS: ASPIRIN 81 MG TAB.CHEW PO SCH (08:34)
[2018-07-28] MEDS: METOPROLOL 25 MG TAB PO SCH (08:34)
[2018-07-28] MEDS: LISINOPRIL 5 MG TAB PO SCH (08:34)
--- NOTE | 2018-07-28 10:00 | NUR ---
PATIENT WAS AWAKE, ALERT. RESPIRATION EVEN, UNLABOR ON ROOM AIR. NO DISTRESS NOTED AT THIS TIME
[2018-07-28] MEDS ORDERED: MAG SULF 2000 MG/WATER PREMIX 100 ML IV SCH (11:30)
--- NOTE | 2018-07-28 11:45 | NUR ---
PATIENT WAS AWAKE, ALERT. RESPIRATION EVEN, UNLABOR ON ROOM AIR. DENIED PAIN, SOB AT THIS TIME. NO DISTRESS NOTED. MEDS WERE GIVEN PER ORDER. CALL LIGHT WITHIN REACH
[2018-07-28 12:00] VITALS: BP 91/56
[2018-07-28] MEDS: INSULIN LISPRO SLIDING SCALE 100 UNITS/ML VIAL SUBQ PRN (12:04)
--- NOTE | 2018-07-28 14:00 | NUR ---
PATIENT WAS SLEEPING COMFORTABLY. RESPIRATION EVEN, UNLABOR ON ROOM AIR. NO DISTRESS NOTED AT THIS TIME
[2018-07-28 16:00] VITALS: BP 93/52
--- NOTE | 2018-07-28 17:00 | NUR ---
DISCHARGE INSTRUCTION AND PRESCRIPTIONS WERE GIVEN AND EXPLAINED TO THE PATIENT. PATIENT VERBALIZED UNDERSTANDING. IV WAS REMOVED, CATHETER INTACT, NO ACTIVE BLEEDING SEEN. REAL ESTATE LEGAL ASSISTANT AND ID BAND WAS REMOVED. PATIENT REFUSED PNEUMONIA VACCINE. ALL BELONGINGS WERE TAKEN WITH THE PATIENT. PATIENT WAS ESCORTED OUT BY STAFF, AMBULATORY WITH STEADY GAIT. PATIENT IS STABLE AT THIS TIME
== END 2018-07-28 17:00 | disposition home or self-care (01) | DRG 682 ==
LOC: MED 12:49 → MMU 18:58
PROVIDERS: ADMIT General Practice; ATTEND General Practice
DX: N17.0 Acute kidney failure with tubular necrosis (principal); I50.43 Acute on chronic combined systolic (congestive) and diastolic (congestive) heart failure; I11.0 Hypertensive heart disease with heart failure; E83.42 Hypomagnesemia; I48.91 Unspecified atrial fibrillation; E78.5 Hyperlipidemia, unspecified; N40.0 Benign prostatic hyperplasia without lower urinary tract symptoms; E03.9 Hypothyroidism, unspecified; E11.65 Type 2 diabetes mellitus with hyperglycemia; Z79.899 Other long term (current) drug therapy; Z79.84 Long term (current) use of oral hypoglycemic drugs; Z87.891 Personal history of nicotine dependence; Z96.641 Presence of right artificial hip joint
CPT/HCPCS: 36415; 71045; 80048; 80053; 80305; 81003; 82550; 82553; 82948; 83036; 83605; 83690; 83735; 83880; 84100; 84439; 84443; 84484; 85025; 85610; 85730; 87081; 93005; 96374; 99285; J1815; J1940; J3475; J7030; Q0092

== ENCOUNTER 2019-03-06 11:02 | Outpatient (CLI) | payer OTHER ==
[~2019-03-06 11:02] MED LIST changes: +AMIO200T5 PO; +ASPI-1718 PO; +FURO-572 PO; -LACT1.4C PO; +LEVO0.124 PO; +RIVA20TA PO; -RIVA20TA4 PO; -SULF-58 PO; +TERA5CAP8 PO
== END 2019-03-06 21:09 | disposition home or self-care (01) ==
LOC: MRD 11:02
DX: I65.23 Occlusion and stenosis of bilateral carotid arteries (principal); I71.4 Abdominal aortic aneurysm, without rupture; M79.89 Other specified soft tissue disorders; I11.0 Hypertensive heart disease with heart failure; I50.9 Heart failure, unspecified; E11.9 Type 2 diabetes mellitus without complications
CPT/HCPCS: 76770; 93880; 93922; 93925; 93970

== ENCOUNTER 2019-04-30 11:45 | Inpatient (IN) | payer OTHER ==
[~2019-04-30] VITALS: Ht 170.2 cm; Wt 76.7 kg
[2019-04-30] MEDS: BLOOD GLUCOSE MONITORING 1 DEV DEV FS SCH (06:00)
[2019-04-30 11:49] VITALS: BP 129/71
--- NOTE | 2019-04-30 13:05 | NUR ---
PT AMBULATED TO ER BED 04
--- NOTE | 2019-04-30 13:45 | NUR ---
BLE EDEMA PITTING +3 NOTED, REPORTS CELLULITIS ON RLE, COVERED WITH UNNA BOOT
--- NOTE | 2019-04-30 13:45 | NUR ---
73/M PRESENTS TO ED WITH DAUGHTER, C/O COUGH, CONGESTION, X1 WEEK. REPORTS SOB WITH ACTIVITY. REPORTS INTERMITTENT CP, DENIES ANY PAIN AT THIS TIME. REPORTS DYSURIA/HEMATURIA, X3 DAYS. DENIES FEVER/CHILLS. PT AWAKE AND ALERT, SKIN NORMAL COLOR WARM AND DRY, SPO2 98% ON RA, RR 18 EVEN AND UNLABORED. LUNG SOUNDS CLEAR BL. S1S2 PRESENT. BS ACTIVE X4, ABD SOFT ROUND NONTENDER. HX HTN, A.FIB, HLD, DM, HYPOTHYROID, ANEMIA RX LEVOTHYOXINE, LASIX, JANUVIA, ATORVASTATIN, IRON, FOLIC ACID, MULTIVITAMIN, METFORMIN, AMIODARONE, XARELTO, LOSARTAN, ASPIRIN, METOPROLOL
[2019-04-30 13:51] LABS: BILIRUBIN,URINE 1+ (NEGATIVE); BLOOD, URINE 3+ (NEGATIVE); LEUKOCYTE ESTERASE ,URINE 2+ (NEGATIVE); NITRITE, URINE NEGATIVE (NEGATIVE); PH,URINE 5.5 (5.0-9.0); UGLUCOSE NEGATIVE (NEGATIVE)
[2019-04-30 14:14] LABS: APPEARANCE,URINE CLOUDY (CLEAR)
[2019-04-30 14:15] LABS: COLOR,URINE AMBER (YELLOW)
[2019-04-30 14:50] LABS: RBC,URINE TOO NUMEROUS TO COUN /HPF (0-5); WBC,URINE 80-100 /HPF (0-5)
[2019-04-30 15:22] LABS: BASOPHILS % (AUTO) 0.5 % (0.0-2.0); EOSINOPHILS # (AUTO) 0.1 K/uL (0-0.4); EOSINOPHILS % (AUTO) 0.7 % (0.0-4.0); HEMATOCRIT 50.3 % (36-52); HEMOGLOBIN 16.3 g/dL (12.0-18.0); LYMPHOCYTES # (AUTO) 1.6 K/uL (2.0-11.5); LYMPHOCYTES % (AUTO) 18.2 % (20.5-51.1); MEAN CORPUSCULAR HEMOGLOBIN 32 pg (27-31); MEAN CORPUSCULAR HGB CONC 32 g/dL (33-37); MEAN CORPUSCULAR VOLUME 97.4 fL (80-94); MONOCYTES # (AUTO) 0.8 K/uL (0.8-1.0); MONOCYTES % (AUTO) 9.2 % (1.7-9.3); NEUTROPHILS # (AUTO) 6.3 K/uL (1.8-7.7); NEUTROPHILS % (AUTO) 71.4 % (42.2-75.2); RED BLOOD CELL COUNT(AUTO) 5.16 MIL/uL (4.20-6.10); RED CELL DISTRIBUTION WIDTH 17.3 % (11.6-13.7); WHITE BLOOD COUNT (AUTO) 8.8 K/uL (4.8-10.8)
[2019-04-30 15:32] LABS: ALBUMIN 3.1 g/dL (3.4-5.0); ANION GAP 13.7 (8-16); ASPARTATE AMINOTRANSFERASE 28 U/L (15-37); CARBON DIOXIDE 26.2 mmol/L (21-32); CHLORIDE 100 mmol/L (98-107); CREATININE 2.1 mg/dL (0.6-1.3); GLUCOSE 156 mg/dL (74-106); POTASSIUM 4.9 mmol/L (3.5-5.1); SODIUM SERUM 135 mmol/L (136-145); TOTAL BILIRUBIN 2.2 mg/dL (0.0-1.0); UREA NITROGEN, BLOOD 45 mg/dL (7-18)
--- NOTE | 2019-04-30 15:40 | NUR ---
PT LYING COMFORTABLY IN BED.
--- NOTE | 2019-04-30 15:59 | NUR ---
DR. MAYER AT BEDSIDE.
[2019-04-30 16:00] LABS: PLATELET COUNT (AUTO) 73 K/uL (140-450)
--- NOTE | 2019-04-30 16:42 | NUR ---
PT TAKEN TO CT VIA WHEELCHAIR.
[2019-04-30] MEDS ORDERED: LEVO0.155 PO (16:54)
[2019-04-30] MEDS ORDERED: FURO-572 PO (16:54)
[2019-04-30] MEDS ORDERED: FOLI1TAB90 PO (17:01)
[2019-04-30] MEDS ORDERED: ATOR10TA PO (17:01)
[2019-04-30] MEDS ORDERED: FERR-13 PO (17:01)
[2019-04-30] MEDS ORDERED: VITA1TAB44 PO (17:01)
[2019-04-30] MEDS ORDERED: MULT-153 PO (17:02)
[2019-04-30] MEDS ORDERED: METF500T PO (17:05)
[2019-04-30] MEDS ORDERED: AMIO100T3 PO (17:10)
[2019-04-30] MEDS ORDERED: RIVA20TA PO (17:10)
[2019-04-30] MEDS ORDERED: LOSA50TA66 PO (17:11)
[2019-04-30] MEDS ORDERED: ASPI-1205 PO ×2 (17:25→17:29)
[2019-04-30] MEDS ORDERED: METO25TA PO (17:26)
--- NOTE | 2019-04-30 17:52 | NUR ---
PT LAYING IN BED, FAMILY AT BEDSIDE, VSS. DENIES ANY PAIN OR SOB AT THIS TIME. RR EVEN AND UNLABORED, NO ACUTE DISTRESS. PT GIVEN SANDWICH WITH FLUID RESTRICTION. ALL NEEDS MET.
[2019-04-30] MEDS ORDERED: FUROSEMIDE 20 MG/2 ML VIAL IVP ONE (18:15)
--- NOTE | 2019-04-30 18:31 | NUR ---
PT A&O X 4, NO DISTRESS NOTED. LASIX GIVEN, PT UNABLE TO PROVIDE URINE SAMPLE.
--- NOTE | 2019-04-30 19:01 | NUR ---
Pt ambulated to bathroom for clean catch urine sample. Steady gate noted, no distress noted, pt denies pain.
--- NOTE | 2019-04-30 19:12 | NUR ---
urine collected and sent to lab to be processed stat.
--- NOTE | 2019-04-30 19:35 | NUR ---
Position changed, vss, no distress noted.
[2019-04-30 19:56] LABS: APPEARANCE,URINE HAZY (CLEAR); BILIRUBIN,URINE 1+ (NEGATIVE); BLOOD, URINE 3+ (NEGATIVE); COLOR,URINE DARK YELLOW (YELLOW); LEUKOCYTE ESTERASE ,URINE 1+ (NEGATIVE); NITRITE, URINE NEGATIVE (NEGATIVE); UGLUCOSE NEGATIVE (NEGATIVE)
[2019-04-30 20:23] LABS: RBC,URINE 11-20 (MOD) /HPF (0-5); WBC,URINE >25 (MANY) /HPF (0-5)
[2019-04-30] MEDS ORDERED: ONDANSETRON 4 MG/2 ML VIAL IVP PRN (21:05)
[2019-04-30] MEDS ORDERED: ACETAMINOPHEN 325 MG TAB PO PRN (21:05)
[2019-04-30] MEDS ORDERED: ALBUTEROL 0.083% 2.5 MG/3 ML NEBU INH PRN (21:05)
[2019-04-30] MEDS ORDERED: DEXTROSE 50% 50 ML SYR IVP PRN (21:05)
[2019-04-30] MEDS ORDERED: MORPHINE SULFATE 4 MG/ML SYR IVP PRN (21:05)
[2019-04-30] MEDS ORDERED: HYDROcodone/APAP 5/325 MG 1 TAB TAB PO PRN (21:05)
[2019-04-30 21:50] VITALS: BP 128/70
--- NOTE | 2019-04-30 21:50 | NUR ---
RECIEVED PT AAOX4 FROM ER / RSHARON , WALKS TO BED . NID - O2 SAT .WNL , LUNGS SOUNDS CLEAR . IV SITE INTACT AND PATENT . ADMISSION ASSESSMENT DONE , MRSA SPECIMEN SENT TO LAB . PUT ON SAFETY / FALL RECAUTION PROTOCOL - ALTHOUGH PT GAIT IS STEADY , BUT HE SAID THE PAIN EXAGERATES BY WALKING - W/ OPEN WOUND ON RIGHT LOWER LEG - FALL RISK . POC DISCUSSED AND VERBALIZE UNDERSTANDING - CALL LIGHT WITHIN REACH . SAVANAH Addendum: 05/01/19 at 0246 by Candida Mac RN THE WORD OF SAVAANH ON THE ABOVE NURSE'S NOTES IS TYPOGRAPHICALLY ERROR - MNALMA ROSALR. Addendum: 05/01/19 at 0246 by Candida Mac RN ON CUSTOMER RECORDS DIVISION SUPERVISOR - WILL CONT. TO MONITOR.
--- NOTE | 2019-04-30 22:10 | NUR ---
Patient will be admitted to care of DR. GERARDO. Adm[facility] to [facility]. Will go to [facility] [address] . Belongings list completed. Report to DONNELL.
[2019-04-30] MEDS ORDERED: cefTRIAXone 500 MG VIAL ONE (22:16)
[2019-04-30] MEDS ORDERED: cefTRIAXone 1,000 MG VIAL ONE (22:27)
[2019-05-01] VITALS: BP 122/62
--- NOTE | 2019-05-01 | NUR ---
MADE ROUNDS . NO S/SXS OF ACUTE DISTRESS NOTED AT THIS TIME . CALL LIGHT WITHIN REACH . WILL CONT. TO MONITOR.
--- NOTE | 2019-05-01 02:00 | NUR ---
MADE ROUNDS . PT SLEEPING - CHEST RISE AND FALL EQUALLY , WILL CONT. TO MONITOR.
[2019-05-01 04:00] VITALS: BP 124/69
--- NOTE | 2019-05-01 04:00 | NUR ---
MADE ROUNDS . DENIES ANY PAIN . BREATHING UNLABORED AND EVEN . WILL CONT. TO MONITOR.
[2019-05-01] MEDS: LEVOTHYROXINE 0.075 MG TAB PO SCH (05:50)
[2019-05-01 05:56] LABS: BASOPHILS % (AUTO) 0.5 % (0.0-2.0); EOSINOPHILS # (AUTO) 0.2 K/uL (0-0.4); EOSINOPHILS % (AUTO) 1.9 % (0.0-4.0); HEMATOCRIT 49.9 % (36-52); HEMOGLOBIN 16.4 g/dL (12.0-18.0); LYMPHOCYTES # (AUTO) 2.1 K/uL (2.0-11.5); LYMPHOCYTES % (AUTO) 23.8 % (20.5-51.1); MEAN CORPUSCULAR HEMOGLOBIN 32 pg (27-31); MEAN CORPUSCULAR HGB CONC 33 g/dL (33-37); MEAN CORPUSCULAR VOLUME 97.4 fL (80-94); MONOCYTES # (AUTO) 0.8 K/uL (0.8-1.0); MONOCYTES % (AUTO) 9.4 % (1.7-9.3); NEUTROPHILS # (AUTO) 5.6 K/uL (1.8-7.7); NEUTROPHILS % (AUTO) 64.4 % (42.2-75.2); PLATELET COUNT (AUTO) 77 K/uL (140-450); RED BLOOD CELL COUNT(AUTO) 5.12 MIL/uL (4.20-6.10); RED CELL DISTRIBUTION WIDTH 16.9 % (11.6-13.7); WHITE BLOOD COUNT (AUTO) 8.7 K/uL (4.8-10.8)
--- NOTE | 2019-05-01 06:00 | NUR ---
MADE ROUNDS . NO COMPLAIN MADE AT THIS TIME . DENIES ANY CHEST PAIN , DENIES PALPITATION. WILL CONT. TO MONITOR.
[2019-05-01 06:08] LABS: ANION GAP 12.5 (8-16); CARBON DIOXIDE 26.6 mmol/L (21-32); CHLORIDE 103 mmol/L (98-107); GLUCOSE 115 mg/dL (74-106); POTASSIUM 4.1 mmol/L (3.5-5.1); SODIUM SERUM 138 mmol/L (136-145); UREA NITROGEN, BLOOD 48 mg/dL (7-18)
[2019-05-01 06:12] LABS: MAGNESIUM 1.5 mg/dL (1.8-2.4); PHOSPHORUS 3.4 mg/dL (2.5-4.9)
--- NOTE | 2019-05-01 07:30 | NUR ---
SHIFT REPORT RECEIVED FROM BUSINESS PERFORMANCE MANAGER NURSE. PT IS IN BED AT THIS TIME. NO DISTRESS NOTED. NO COMPLAINS OF PAIN.CALL LIGHT IN REACH.
--- NOTE | 2019-05-01 07:38 | NUR ---
PATIENT HAS BEEN SCREENED AND CATEGORIZED HIGH NUTRITION RISK. PATIENT WILL BE SEEN WITHIN 1-2 DAYS OF ADMISSION. 05/01/19-05/02/[address]
[2019-05-01 08:00] VITALS: BP 149/80
[2019-05-01] MEDS ORDERED: FUROSEMIDE 40 MG/4 ML VIAL IVP ONE (09:00)
[2019-05-01] MEDS: ATORVASTATIN 20 MG TAB PO SCH (09:37)
[2019-05-01] MEDS: MULTIVITAMIN 1 TAB PO SCH (09:38)
[2019-05-01] MEDS: FERROUS SULFATE 325 MG TABEC PO SCH (09:42)
[2019-05-01] MEDS: FOLIC ACID 1 MG TAB PO SCH (09:42)
--- NOTE | 2019-05-01 10:05 | NUR ---
WOUND CARE EVALUATION NOTE: WOUND ASSESSMENT TO RIGHT LOWER MEDIAL LEG. PT IS AAX4, DAUGHTER RAE AT BED SIDE, HX PROVIDED, PER DAUGHTER. PT . 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 PER DAUGHTER REQUEST TO APPLY UNNA BOOT TO RLE. PER DAUGHTER. PT FOLLOW DOCTOR AT [facility] [phone]. EXPLAIN TO DAUGHTER RECOMMEND TO REQUEST FLOW STUDY PRIOR UNNA BOOT / COMPRESSION APPLICATION. PT. AND DAUGHTER AGREEABLE. POC DISCUSSED WITH PRIMARY RN AND CHARGE NURSE. CALL PLACE TO [facility] TO OBTAIN TREATMENT HISTORY, SPOKE TO TOMA AND WILL CALL BACK FOR INFORMATION. -RIGHT MEDIAL LEG ULCER 5X4CM SUPERFICIAL DEPTH, WOUND BED IS 100% GRANULATING, MOIST NO ODOR, RAQUEL WOUND ERYTHEMA, +1 EDEMA, COLD TO TOUCH, NO C/O PAIN. RECOMMENDATIONS: -RLE ARTERIAL ULTRA SOUND FOR FLOW STUDY -CLEANSE RLE WOUND WITH NS, PAT DRY, APPLY ADAPTIC DRESSING COVER WITH COMPOSITE DRESSING QD AND PRN IF SOILING. -OFFLOAD BILATERAL HEELS WHEN IN BED. Addendum: 05/01/19 at 1507 by Martha Goldstein RN (Grace) JUANIS FROM [facility] RETURN CALL AND EXPLAINED TO ME PT. LAST SEEN 1 WEEK AGO WITH UNNA BOOT AND LIGHT COMPRESSION APPLIED. EXPLAINED TO HER THAT PT. IS AT HOSPITAL AND WILL HAVE FLOW STUDY PRIOR APPLY COMPRESSION DRESSING.
--- NOTE | 2019-05-01 10:48 | NUR ---
PT IS RESTING IN BED. NO DISTRESS NOTED. NO COMPLAINS OF PAIN. SAFETY MEASURES IN CHECK. CALL LIGHT IN REACH.
[2019-05-01] MEDS: BLOOD GLUCOSE MONITORING 1 DEV DEV FS SCH ×3 (11:36→21:07)
[2019-05-01] MEDS: INSULIN LISPRO SLIDING SCALE 100 UNITS/ML VIAL SUBQ PRN ×2 (11:41→21:26)
[2019-05-01 12:00] VITALS: BP 131/90
--- NOTE | 2019-05-01 13:51 | NUR ---
PER WOUND CARE NURSE. PT'S DAUGHTER WAS REQUESTING TITO BOOTS. PER WOUND CARE NURSE. REQUEST FOR AN US OF THE BILATERAL LOWER LEG. NOTIFIED DR KIM OF THE SAME. DR BRYAN, VASCULAR SURGEON TO BE CONSULTED. PH [phone]. NOTIFIED DR KIM.
--- NOTE | 2019-05-01 15:02 | NUR ---
PT IS RESTING IN BED. NO COMPLAINS OF PAIN REPORTED. CALL LIGHT IN REACH.
[2019-05-01 16:00] VITALS: BP 121/81
[2019-05-01] MEDS: RIVAROXABAN 15 MG TAB PO SCH (16:41)
--- NOTE | 2019-05-01 16:56 | NUR ---
ONUR Sparks remained to follow up with patient and family about flu and PNA shot.
--- NOTE | 2019-05-01 17:28 | NUR ---
PT IS SITTING IN BED. PT TURNS SELF PERIODICALLY. NO COMPLAINS OF PAIN. FAMILY BE BEDSIDE.CALL LIGHT WITHIN REACH.
--- NOTE | 2019-05-01 17:37 | NUR ---
05/01/19 RD INITIAL ASSESSMENT COMPLETED PLEASE REFER TO NUTRITION ASSESSMENT UNDER CARE ACTIVITY FOR ESTIMATED NUTRITIONAL NEEDS. 1. [facility]OMM[facility] DIET 2. RD PROVIDED HEART-HEALTHY NUTRITION EDUCATION TO PT 3. RD TO FOLLOW-UP 2-3 DAYS, RISK -REVIEWED BY CAITLYN ANAND RD
--- NOTE | 2019-05-01 19:15 | NUR ---
SHIFT REPORT GIVEN TO DISTRIBUTION SALES MANAGER NURSE. PT IS IN BED IN STABLE CONDITION. CALL LIGHT IN REACH.
--- NOTE | 2019-05-01 19:15 | NUR ---
RECIEVED PT .[id number] , NID , DENIES ANY PAIN AT THIS TIME - ON SALES AGENT FINANCIAL REPORT SERVICE . ON SL - INTACT AND PATENT . NO COMPLAIN MADE AT THIS TIME . ON SAFETY / FALL PRECAUTION PROTOCOL - CALL LIGHT WITHIN REACH , URINAL WITHIN REACH - BED ALARM ON. POC DISCUSSED AND VERBALIZE UNDERSTANDING . W/ WOUND ON THE THE R LOWER LEG DRESSING DRY AND INTACT . WILL CONT. TO MONITOR.
[2019-05-01 20:00] VITALS: BP 110/69
--- NOTE | 2019-05-01 20:56 | NUR ---
RECEIVED PT FROM AM SHIFT ON ROOM AIR WITH AN SP02 OF 97% AND A CLEAR BREATH SOUNDS. NO RESPIRATORY DISTRESS NOTED AT THIS TIME. NO INDICATION FOR HHN PRN TX AT THIS TIME. WILL CONTINUE TO MONITOR PT.
[2019-05-01] MEDS: ASPIRIN 81 MG TAB.CHEW PO SCH (21:19)
[2019-05-01] MEDS: AMIODARONE 200 MG TAB PO SCH (21:20)
[2019-05-01] MEDS: LOSARTAN 50 MG TAB PO SCH (21:21)
[2019-05-01] MEDS: METOPROLOL 25 MG TAB PO SCH (21:21)
--- NOTE | 2019-05-01 22:00 | NUR ---
MADE ROUNDS . RESTING ON BED NO COMPLAIN MADE AT THIS TIME.
[2019-05-02] VITALS: BP 130/62
--- NOTE | 2019-05-02 | NUR ---
MADE ROUNDS . VOIDED THRU URINAL - NO HEMATURIA NOTED . WILL CONT. TO MONITOR. CALL LIGHT WITHIN REACH.
[2019-05-02 04:00] VITALS: BP 128/80
[2019-05-02 06:11] LABS: BASOPHILS % (AUTO) 0.4 % (0.0-2.0); EOSINOPHILS # (AUTO) 0.3 K/uL (0-0.4); EOSINOPHILS % (AUTO) 3.5 % (0.0-4.0); HEMATOCRIT 51.3 % (36-52); HEMOGLOBIN 17.1 g/dL (12.0-18.0); LYMPHOCYTES # (AUTO) 1.8 K/uL (2.0-11.5); LYMPHOCYTES % (AUTO) 21.4 % (20.5-51.1); MEAN CORPUSCULAR HEMOGLOBIN 33 pg (27-31); MEAN CORPUSCULAR HGB CONC 33 g/dL (33-37); MEAN CORPUSCULAR VOLUME 97.4 fL (80-94); MONOCYTES # (AUTO) 0.8 K/uL (0.8-1.0); MONOCYTES % (AUTO) 9.5 % (1.7-9.3); NEUTROPHILS # (AUTO) 5.6 K/uL (1.8-7.7); NEUTROPHILS % (AUTO) 65.2 % (42.2-75.2); PLATELET COUNT (AUTO) 99 K/uL (140-450); RED BLOOD CELL COUNT(AUTO) 5.27 MIL/uL (4.20-6.10); RED CELL DISTRIBUTION WIDTH 17.4 % (11.6-13.7); WHITE BLOOD COUNT (AUTO) 8.6 K/uL (4.8-10.8)
[2019-05-02 06:13] LABS: ANION GAP 11.8 (8-16); CARBON DIOXIDE 28.8 mmol/L (21-32); CHLORIDE 104 mmol/L (98-107); CREATININE 1.7 mg/dL (0.6-1.3); GLUCOSE 128 mg/dL (74-106); POTASSIUM 4.6 mmol/L (3.5-5.1); SODIUM SERUM 140 mmol/L (136-145); UREA NITROGEN, BLOOD 44 mg/dL (7-18)
[2019-05-02 06:21] LABS: MAGNESIUM 1.3 mg/dL (1.8-2.4); PHOSPHORUS 3.3 mg/dL (2.5-4.9)
[2019-05-02] MEDS: BLOOD GLUCOSE MONITORING 1 DEV DEV FS SCH ×4 (06:38→20:59)
[2019-05-02] MEDS: LEVOTHYROXINE 0.075 MG TAB PO SCH (06:39)
--- NOTE | 2019-05-02 07:10 | NUR ---
RECEIVED BEDSIDE REPORT FROM NIGHT NURSE. PATIENT IN BED, ASLEEP, EASILY AROUSABLE BY NAME OR TOUCH. RESPIRATION EVEN AND UNLABORED. IV INTACT AND PATENT TO LEFT AC SALINE LOCK. BED IN LOW POSITION. CALL LIGHT WITHIN REACH. PLANS OF CARE DISCUSSED. SAFETY MEASURES IN PLACE.
[2019-05-02 08:00] VITALS: BP 125/87
[2019-05-02] MEDS ORDERED: SPIRONOLACTONE 25 MG TAB PO SCH (09:00)
[2019-05-02] MEDS: FERROUS SULFATE 325 MG TABEC PO SCH (09:12)
[2019-05-02] MEDS: MULTIVITAMIN 1 TAB PO SCH (09:12)
[2019-05-02] MEDS: ATORVASTATIN 20 MG TAB PO SCH (09:12)
[2019-05-02] MEDS: FOLIC ACID 1 MG TAB PO SCH (09:12)
--- NOTE | 2019-05-02 09:15 | NUR ---
PATIENT IS AWAKE, ALERT AND ORIENTED X 4. PATIENT EATING BREAKFAST. AM MEDICATIONS GIVEN ORDERED. NO S/S OF DISTRESS NOTED. IV INTACT AND PATENT, FLUSHED WITH SALINE. CALL LIGHT WITHIN REACH.
--- NOTE | 2019-05-02 10:35 | NUR ---
DC PLANNIN YRS OLD MALE PATIENT WAS ADMITTED FROM HOME WITH A DX OPF CHF EXACERBATION. PT HAS A HX OF A-FIB, DM, HTN, HYPOTHYROIDISM AND DYSLIPIDEMIA. PT HAS A NON-HEALING ULCER OF RT FOOT AND FOLLOWED WITH VASCULAR SURGEON. STARTED LASIX 40 MG IVP, BLOOD AND URINE CULTURE PENDING, CONTINUE HOME MEDS . SEEN BY TEST EXAMINER DR SOFIYA Schafer ORDERED ECHO AND ADJUST CARDIAC MEDS AMIODARONE, LOSARTAN, XARELTO AND ASPIRIN. DC PLAN TO GO HOME WHEN STABLE. CM TO FOLLOW
--- NOTE | 2019-05-02 11:09 | NUR ---
PATIENT IN BED, AWAKE, ALERT, AND RESTING QUIETLY. DENIES ANY DISCOMFORT. BED IN LOW POSITION. CALL LIGHT WITHIN REACH.
[2019-05-02 12:00] VITALS: BP 119/76
[2019-05-02] MEDS: INSULIN LISPRO SLIDING SCALE 100 UNITS/ML VIAL SUBQ PRN (12:18)
--- NOTE | 2019-05-02 12:40 | NUR ---
DR. GERARDO NOTIFIED OF PATIENT'S MG LEVEL 1.3. RECEIVED ORDER TO GIVE MG OXIDE 800MG PO X1 TODAY.
[2019-05-02] MEDS ORDERED: NON ADHERENT DRESSING TP SCH (13:00)
[2019-05-02] MEDS ORDERED: MAGNESIUM OXIDE 400 MG TAB PO SCH (13:00)
--- NOTE | 2019-05-02 13:00 | NUR ---
PATIENT IN BED, AWAKE, ALERT, AND RESTING QUIETLY. DENIES ANY DISCOMFORT. BED IN LOW POSITION. CALL LIGHT WITHIN REACH.
[2019-05-02] MEDS ORDERED: FURO-572 PO (14:34)
[2019-05-02] MEDS ORDERED: CEPH250C16 PO (14:34)
--- NOTE | 2019-05-02 15:00 | NUR ---
SPOKE TO RAE (PATIENT'S DAUGHTER) REGARDING PATIENT IS DISCHARGING TODAY. PER DAUGHTER SHE WILL BE ABLE TO PICK HIM UP TONIGHT BETWEEN 945-1000 PM. PATIENT MADE AWARE.
[2019-05-02 16:00] VITALS: BP 114/73
--- NOTE | 2019-05-02 17:00 | NUR ---
PATIENT STATED HE RECEIVED PNEUMONIA AND FLU VACCINE IN FEBRUARY 2019.
--- NOTE | 2019-05-02 17:40 | NUR ---
RECEIVED ORDER FROM DR. ARRIAZA TO GO AHEAD AND START IV MAG RIDER DUE TO MG LEVEL 1.3. DR. ARRIAZA IS AWARE PATIENT RECEIVED MG OX 800MG X1 PO TODAY.
[2019-05-02] MEDS: RIVAROXABAN 15 MG TAB PO SCH (17:51)
[2019-05-02] MEDS: MAG SULF 2000 MG/WATER PREMIX 50 ML IV SCH ×2 (17:52→20:58)
--- NOTE | 2019-05-02 18:19 | NUR ---
PATIENT IS IN STABLE CONDITION. PATIENT SITTING ON THE SIDE OF THE BED EATING DINNER. NO S/S OF DISTRESS NOTED.
--- NOTE | 2019-05-02 19:00 | NUR ---
PATIENT IN STABLE CONDITION. WILL ENDORSE TO NIGHT NURSE FOR CONTINUITY OF CARE.
[2019-05-02 20:30] VITALS: BP 117/80
--- NOTE | 2019-05-02 20:30 | NUR ---
RECEIVED PATIENT AWAKE IN BED. PATIENT AOX4, ON ROOM AIR. NO S/S OF DISTRESS. PT DENIES ANY PAIN. BED LOWERED WITH CALL LIGHT WITHIN REACH
[2019-05-02] MEDS: METOPROLOL 25 MG TAB PO SCH (20:51)
[2019-05-02] MEDS: AMIODARONE 200 MG TAB PO SCH (20:52)
[2019-05-02] MEDS: ASPIRIN 81 MG TAB.CHEW PO SCH (20:52)
[2019-05-02] MEDS: LOSARTAN 50 MG TAB PO SCH (20:52)
--- NOTE | 2019-05-02 21:22 | NUR ---
RECEIVED PATIENT ON ROOM AIR, PULSE OX SAT 97%. NO SOB NOTED AT THIS TIME. PRN HHN NOT INDICATED. PT MADE AWARE OF MEDICATION FREQUENCY. INSTRUCTED TO CALL FOR TREATMENT NEEDED. NO ACUTE RESPIRATORY DISTRESS NOTED AT THIS TIME. WILL CONTINUE TO MONITOR.
--- NOTE | 2019-05-02 22:20 | NUR ---
PATIENT DISCHARGED TO HOME. DISCHARGE INSTRUCTIONS GIVEN. DAUGHTER PRESENT AT BEDSIDE. IV LINE DISCONTINUED. PATIENT LEFT WITH ALL HIS BELONGINGS AND DISCHARGE PAPERS. PATIENT LEFT IN STABLE CONDITION
[2019-05-03] MEDS ORDERED: MAGNESIUM OXIDE 400 MG TAB PO SCH (09:00)
== END 2019-05-02 22:20 | disposition home or self-care (01) | DRG 682 ==
LOC: MED 11:45 → MTU 21:05
PROVIDERS: ADMIT Hospitalist; ATTEND Hospitalist
DX: N17.9 Acute kidney failure, unspecified (principal); I50.23 Acute on chronic systolic (congestive) heart failure; I13.0 Hypertensive heart and chronic kidney disease with heart failure and stage 1 through stage 4 chronic kidney disease, or unspecified chronic kidney disease; E44.1 Mild protein-calorie malnutrition; I48.20 Chronic atrial fibrillation, unspecified; R18.8 Other ascites; D69.6 Thrombocytopenia, unspecified; E03.9 Hypothyroidism, unspecified; E11.51 Type 2 diabetes mellitus with diabetic peripheral angiopathy without gangrene; E78.5 Hyperlipidemia, unspecified; E83.42 Hypomagnesemia; E78.00 Pure hypercholesterolemia, unspecified; N18.9 Chronic kidney disease, unspecified; I44.7 Left bundle-branch block, unspecified; Z68.26 Body mass index [BMI] 26.0-26.9, adult; Z87.891 Personal history of nicotine dependence
CPT/HCPCS: 36415; 71045; 76705; 80048; 80053; 81001; 82948; 83036; 83735; 83880; 84100; 84484; 85025; 87081; 87086; 87186; 93005; 96374; 99285; J0696; J1815; J1940; J3475; J7060; Q0092

== ENCOUNTER 2019-08-23 19:30 | Inpatient (IN) | payer OTHER, SELFPAY ==
[~2019-08-23] VITALS: Ht 170.2 cm; Wt 74.8 kg
[~2019-08-23 19:30] MED LIST changes: +AMIO100T3 PO; -AMIO200T5 PO; +ASPI-1205 PO; -ASPI-1718 PO; +ATOR10TA PO; -ATOR40TA PO; +CEPH250C16 PO; +FERR-13 PO; +FOLI1TAB90 PO; -LEVO0.124 PO; +LEVO0.155 PO; -LISI5TAB18 PO; +LOSA50TA66 PO; +METO25TA PO; -METO50TA20 PO; +MULT-153 PO; -SPIR50TA PO; -TERA5CAP8 PO; +VITA1TAB44 PO
[2019-08-23 19:34] VITALS: BP 98/60
--- NOTE | 2019-08-23 19:46 | NUR ---
PT WHEELCHAIRED TO TENT Addendum: 08/23/19 at 1950 by JEANNA ACCOMPANIED BY FAMILY
--- NOTE | 2019-08-23 20:10 | NUR ---
BIB WHEELCHAIR TO ER BED 9
--- NOTE | 2019-08-23 20:15 | NUR ---
AT BEDSIDE EXAMINING PT
[2019-08-23 21:13] LABS: BASOPHILS # (AUTO) 0.2 K/uL (0.00-0.22); BASOPHILS % (AUTO) 1.3 % (0.0-2.0); EOSINOPHILS # (AUTO) 0.1 K/uL (0-0.4); EOSINOPHILS % (AUTO) 0.5 % (0.0-4.0); HEMOGLOBIN 10.6 g/dL (12.0-18.0); LYMPHOCYTES % (AUTO) 5.6 % (20.5-51.1); MEAN CORPUSCULAR HEMOGLOBIN 29 pg (27-31); MEAN CORPUSCULAR HGB CONC 32 g/dL (33-37); MEAN CORPUSCULAR VOLUME 90.4 fL (80-94); MONOCYTES # (AUTO) 1.6 K/uL (0.8-1.0); MONOCYTES % (AUTO) 8.6 % (1.7-9.3); NEUTROPHILS # (AUTO) 15.6 K/uL (1.8-7.7); PLATELET COUNT (AUTO) 128 K/uL (140-450); RED BLOOD CELL COUNT(AUTO) 3.65 MIL/uL (4.20-6.10); RED CELL DISTRIBUTION WIDTH 15.6 % (11.6-13.7); WHITE BLOOD COUNT (AUTO) 18.6 K/uL (4.8-10.8)
--- NOTE | 2019-08-23 21:20 | NUR ---
URINE SAMPLE COLLECTED AND HANDED TO LAB PERSON
--- NOTE | 2019-08-23 21:21 | NUR ---
FLUE AND COVID SWAB COLLECTED AND HANDED TO LAB
--- NOTE | 2019-08-23 21:22 | NUR ---
XRAY AT BEDSIDE FOR PORTABLE XRAY
--- NOTE | 2019-08-23 21:33 | NUR ---
PT SITTING UPRIGHT IN BED RESTING, WITH BLANKET, BED LOW AND LOCKED, 2 SIDERAILS UP, VSS, WILL CONTINUE TO MONITOR. PT WEARING MASK.
--- NOTE | 2019-08-23 21:36 | NUR ---
73 Y/O MALE C/O GENERALIZED WEAKNESS X1 WEEK ALONG WITH SUBJECTIVE COUGH AND SOB. PT REPORTS SUBJUCTIVE FEVER 4 DAYS AGO, CUURENT TEMP 98.3. + 2+ PITTING EDEMA, PER DAUGHTER THAT IS PT BASELINE. DENIES N/V/D; SKIN IS PINK/WARM/MOSIT; AAOX4 WITH EVEN AND STEADY GAIT BUT SOME MILD WEAKNESS; PATIENT POSITIONED FOR COMFORT; HOB ELEVATED; BEDRAILS UP X2; BED DOWN AND LOCKED . ER MD MADE AWARE OF PT STATUS. PMH:EMMA, EDWINA ESQUIVEL, ZAY HILLA
[2019-08-23 21:41] LABS: ALBUMIN 1.9 g/dL (3.4-5.0); ANION GAP 12.7 (8-16); ASPARTATE AMINOTRANSFERASE 24 U/L (15-37); CARBON DIOXIDE 26.8 mmol/L (21-32); CHLORIDE 98 mmol/L (98-107); CREATININE 2.9 mg/dL (0.6-1.3); GLUCOSE 143 mg/dL (74-106); POTASSIUM 3.5 mmol/L (3.5-5.1); SODIUM SERUM 134 mmol/L (136-145); TOTAL BILIRUBIN 1.9 mg/dL (0.0-1.0)
[2019-08-23 21:41] LABS: BILIRUBIN,URINE 1+ (NEGATIVE); BLOOD, URINE 3+ (NEGATIVE); LEUKOCYTE ESTERASE ,URINE 3+ (NEGATIVE); NITRITE, URINE NEGATIVE (NEGATIVE); UGLUCOSE NEGATIVE (NEGATIVE)
[2019-08-23 21:44] LABS: UREA NITROGEN, BLOOD 83 mg/dL (7-18)
--- NOTE | 2019-08-23 21:46 | NUR ---
INFORMED CRITICAL LAB VALUE OF BUN 83; CREAT. 2.9
[2019-08-23] MEDS ORDERED: cefTRIAXone 1,000 MG VIAL ONE (22:03)
[2019-08-23 22:18] LABS: APPEARANCE,URINE CLOUDY (CLEAR); COLOR,URINE BLOODY (YELLOW)
[2019-08-23 22:19] LABS: RBC,URINE >100 /HPF (0-5); WBC,URINE TOO MANY TO COUNT /HPF (0-5)
[2019-08-23] MEDS ORDERED: NACL 0.9% 250 ML IV ONE (22:20)
[2019-08-23] MEDS ORDERED: MORPHINE SULFATE 2 MG/ML SYR IVP ONE (22:20)
--- NOTE | 2019-08-23 22:52 | NUR ---
PT RESTING IN BED IN POSITION OF COMFORT, BED LOW AND LOCKED, 2 SIDERAILS UP, VSS, WILL CONTINUE TO MONITOR.
[2019-08-23] MEDS ORDERED: ONDANSETRON 4 MG/2 ML VIAL IVP PRN (23:05)
[2019-08-23] MEDS ORDERED: HYDROcodone/APAP 7.5/325 MG 1 TAB PO PRN (23:05)
[2019-08-23] MEDS ORDERED: ACETAMINOPHEN 325 MG TAB PO PRN (23:05)
[2019-08-23 23:49] LABS: MAGNESIUM 1.5 mg/dL (1.8-2.4); PHOSPHORUS 3.5 mg/dL (2.5-4.9); THYROID STIMULATING HORMONE 1.41 uIU/mL (0.34-3.74)
[2019-08-23 23:50] VITALS: BP 111/58
--- NOTE | 2019-08-23 23:50 | NUR ---
Patient will be admitted to care of . Admited to [facility]. Will go to room 123A. Belongings list completed. Report to ONUR SAMAYOA
--- NOTE | 2019-08-23 23:50 | NUR ---
ADMITTED A 73 MALE FROM ER. CAME BY NIKIA DUE TO WEAKNESS, SOB ,FEVER AND COUGH FOR ALMOST 1 WEEK. PT ON TELE MONITOR. AWAKE, ALERT AND ORIENTED X4. ON ROOM AIR WITH O2 SAT 98%. CAN AMBULATE BUT WITH SOME WEAKNESS. INITIATED HIGH RISK FOR FALL. PT R/O COVID. PLACED ON DROPLET ISOLATION PRECAUTION . PT MADE AWARE . WITH HL ON THE LT AC G#20 . CLEAR AND PATENT. PLAN OF CARE DISCUSSED AND VERBALIZED UNDERSTANDING. FREQ CHECK NEDED. BED ON LOW POSITION. SIDE RAILS UP X2 AND CALL LIGHT AND URINAL WITHIN REACH. WILL FOLLOW UP ADMIT ORDERS. WILL CONTINUE TO MONITOR.
--- NOTE | 2019-08-24 | NUR ---
PT ASLEEP WITH NO SIGNS OF DISTRESS. WILL CONTINUE TO MONITOR PT.
[2019-08-24 00:01] LABS: D-DIMER 2710 ng/ml (0-400)
[2019-08-24] MEDS: NACL 0.9% 1,000 ML IV SCH ×2 (00:01→23:02)
[2019-08-24 00:14] LABS: PROTHROMBIN TIME 19.7 secs (10.8-13.4)
[2019-08-24] MEDS ORDERED: METO25TA PO (00:30)
[2019-08-24] MEDS ORDERED: MAG SULF 2000 MG/WATER PREMIX 50 ML IV ONE (00:30)
[2019-08-24 01:03] LABS: FIBRINOGEN 330 mg/dL (200-400)
--- NOTE | 2019-08-24 01:30 | NUR ---
CHECK ON PT . SLEEPING WITH O2 SAT 97% ON ROOM AIR.
--- NOTE | 2019-08-24 01:56 | NUR ---
PT IS IN NO APPARENT DISTRESS AND CONFIRMED BY PT PT SAT 97 ON RA HR 83
--- NOTE | 2019-08-24 03:05 | NUR ---
MADE ROUNDS. PT ASLEEP. WITH NO RESPIRATORY DISTRESS NOTED.
[2019-08-24 03:30] VITALS: BP_SYST 119; BP_SYST 122; BP_DIAS 57; BP_DIAS 68
[2019-08-24] MEDS ORDERED: DEXTROSE 50% 50 ML SYR IVP PRN (05:25)
--- NOTE | 2019-08-24 05:30 | NUR ---
PT REFUSED ABG AT THIS TIME STATING COME BACK LATER IN THE AM AND HE MAY BE MORE COOPERATIVE PT WOULD LIKE TO REST/SLEEP DR ZARATE IS AWARE
[2019-08-24 06:04] LABS: HEMOGLOBIN 10.7 g/dL (12.0-18.0)
[2019-08-24 06:21] LABS: MAGNESIUM 1.9 mg/dL (1.8-2.4); PHOSPHORUS 3.4 mg/dL (2.5-4.9)
[2019-08-24 06:26] LABS: ANION GAP 8.8 (8-16); CARBON DIOXIDE 29.6 mmol/L (21-32); CHLORIDE 100 mmol/L (98-107); CREATININE 2.7 mg/dL (0.6-1.3); GLUCOSE 146 mg/dL (74-106); POTASSIUM 3.4 mmol/L (3.5-5.1); SODIUM SERUM 135 mmol/L (136-145)
[2019-08-24] MEDS: BLOOD GLUCOSE MONITORING 1 DEV DEV FS SCH ×4 (06:36→21:31)
--- NOTE | 2019-08-24 06:36 | NUR ---
BLOOD SUGAR WAS CHECKED RESULT 138. NO INSULIN NEEDED.
[2019-08-24 06:54] LABS: UREA NITROGEN, BLOOD 78 mg/dL (7-18)
[2019-08-24 06:56] LABS: CHOL/HDL RATIO 10.9 (1-4.5)
[2019-08-24 07:01] LABS: HEMATOCRIT 33.5 % (36-52); MEAN CORPUSCULAR HEMOGLOBIN 29 pg (27-31); MEAN CORPUSCULAR HGB CONC 32 g/dL (33-37); MEAN CORPUSCULAR VOLUME 89.8 fL (80-94); PLATELET COUNT (AUTO) 135 K/uL (140-450); RED BLOOD CELL COUNT(AUTO) 3.73 MIL/uL (4.20-6.10); RED CELL DISTRIBUTION WIDTH 15.3 % (11.6-13.7); WHITE BLOOD COUNT (AUTO) 23.3 K/uL (4.8-10.8)
--- NOTE | 2019-08-24 07:22 | NUR ---
ENDORSED PT IN STABLE CONDITION TO AM NURSE FOR CONTINUITY OF CARE.
--- NOTE | 2019-08-24 07:23 | NUR ---
RECEIVED PATIENT FROM BATH STEWARD/STEWARDESS NURSE FOR CONTINUITY OF CARE. PATIENT IS CURRENTLY SLEEPING ON THIS TIME.. RESPIRATIONS EVEN AND UNLABORED, ROOM AIR. VISIBLE CHEST RISE AND FALL NOTED, ON TELE MONITORING. HAS HEART MONITOR FOR PA. ABDOMEN SOFT AND NONTENDER. INCONTINENT. SKIN WARM, DRY, AND INTACT. IV ON THE RIGHT AC GAUGE 20 RUNNING NS AT 20 ML/HR. NO SIGNS OF IV INFILTRATION. IVF RUNNING WELL. PATIENT IS BEDREST FOR WEAKNESS. ON DROPLET PRECAUTION FOR COVID-19. BED IN LOW POSITION. CALL LIGHT IS WITHIN REACH. WILL CONTINUE TO MONITOR.
[2019-08-24 08:00] VITALS: BP 94/61
--- NOTE | 2019-08-24 08:04 | NUR ---
CRITICAL LAB: WBC 23.4, LYMPHOCYTES: 4.3. WILL NOTIFY RESIDENT DOCTOR
[2019-08-24] MEDS ORDERED: ENOXAPARIN 40 MG/0.4 ML SYR SUBQ SCH (09:00)
[2019-08-24] MEDS: VITAMIN D 400 IU TAB PO SCH (09:08)
[2019-08-24] MEDS: DOCUSATE SODIUM 100 MG GELCAP PO SCH ×2 (09:08→21:28)
[2019-08-24] MEDS: FUROSEMIDE 40 MG/4 ML VIAL IVP SCH ×2 (09:08→16:05)
[2019-08-24] MEDS: ATORVASTATIN 20 MG TAB PO SCH (09:08)
--- NOTE | 2019-08-24 09:08 | NUR ---
GIVEN MORNING MEDICATIONS PO. HELD BP MEDICATIONS LOPRESSOR AND LASIX DUE TO LOW BP. EXPLAINED MEDICATIONS. PATIENT VERBALIZED UNDERSTANDING. BED IN LOW POSITION. CALL LIGHT IS WITHIN REACH. WILL CONTINUE TO MONITOR.
[2019-08-24] MEDS: FAMOTIDINE 20 MG TAB PO SCH (09:09)
[2019-08-24] MEDS: ASCORBIC ACID 500 MG TAB PO SCH (09:09)
[2019-08-24] MEDS: ZINC SULF 220 MG CAP PO SCH (09:09)
[2019-08-24] MEDS: LEVOTHYROXINE 0.075 MG TAB PO SCH (09:09)
[2019-08-24] MEDS: METOPROLOL 25 MG TAB PO SCH ×2 (09:09→21:29)
[2019-08-24] MEDS: AZITHROMYCIN 250 MG TAB PO SCH (09:10)
[2019-08-24] MEDS: FERROUS SULFATE 325 MG TABEC PO SCH (09:10)
--- NOTE | 2019-08-24 09:21 | NUR ---
PATIENT HAS BEEN SCREENED AND CATEGORIZED HIGH NUTRITION RISK. PATIENT WILL BE SEEN WITHIN 1-2 DAYS OF ADMISSION. 08/24/19-08/25/[address]
[2019-08-24 09:26] LABS: LYMPHOCYTES % (MANUAL) 4 % (20-46); MONOCYTES % (MANUAL) 10 % (5-12)
--- NOTE | 2019-08-24 10:29 | NUR ---
SPOKE TO DR TREJO REGARDING PATIENTS POTASSIUM LEVEL 3.4 AND WBC LEVEL INCREASE TO 23.3. STATED HE WILL PUT AN ORDER IN FOR POTASSIUM COVERAGE.
[2019-08-24] MEDS ORDERED: POTASSIUM CHLORIDE 10 MEQ TABER PO SCH (10:30)
--- NOTE | 2019-08-24 10:47 | NUR ---
K DUR GIVEN PO TO PATIENT TO COVER POTASSIUM 3.4 PER MD ORDER. PATIENT EDUCATED ON MEDICATION AND VERBALIZED UNDERSTANDING. BED IN LOW POSITION AND CALL LIGHT WITHIN REACH. HE IS RESTING IN BED, WITH O2 SAT AT 98% RA. WILL CONTINUE TO MONITOR.
--- NOTE | 2019-08-24 11:22 | NUR ---
BLOOD GLUCOSE 138, NO COVERAGE NEEDED. PATIENT TOLERATED WELL. VS TAKEN AND PATIENT LAYING IN BED AWAKE AND ALERT. PATIENT REQUESTED A BLANKET AND ONE WAS PROVIDED. DR RICE IS BEDSIDE
--- NOTE | 2019-08-24 11:32 | NUR ---
SPOKE TO DR RICE AT 1130 AND NEW ORDERS OF O2 AT 2L NC, SUPPOSITORY AND SIMETHICONE ORDERS WILL BE PLACED BY .
[2019-08-24] MEDS ORDERED: SIMETHICONE 80 MG TAB.CHEW PO PRN (11:35)
[2019-08-24] MEDS ORDERED: MORPHINE SULFATE 2 MG/ML SYR IVP PRN (11:35)
[2019-08-24] MEDS ORDERED: SODIUM PHOSPHATE 118 ML ENEM RC PRN (11:35)
[2019-08-24] MEDS ORDERED: BISACODYL 10 MG SUPP RC SCH (11:40)
--- NOTE | 2019-08-24 11:48 | NUR ---
DULCOLAX SUPPOSITORY, AND SIMETHICONE TAB GIVEN PER MD ORDER AND TOLERATED WELL. MEDICATION EDUCATION GIVEN AND PATIENT VERBALIZED UNDERSTANDING. PATIENT PLACED ON O2 2L VIA NC. NO CURRENT COMPLAINTS VOICED FROM PATIENT. WILL CONTINUE TO MONITOR PATIENT.
[2019-08-24 12:00] VITALS: BP 111/69
--- NOTE | 2019-08-24 13:16 | NUR ---
PATIENT HAD ONE BM. CAN MAKER AT BEDSIDE ASSISTING PATIENT.
--- NOTE | 2019-08-24 13:30 | NUR ---
PATIENT SITTING IN THE COMMODE. PATIENT DENIES PAIN. APPLIED NASAL CANNULA EXTENSION TUBING.
--- NOTE | 2019-08-24 14:08 | NUR ---
RECEIVED A CALL FROM LAB. BLOOD CULTURE POSITIVE FOR GRAM NEGATIVE RODS
--- NOTE | 2019-08-24 14:20 | NUR ---
NOTIFIED DR RICE OF BLOOD CULTURE RESULTS GRAM NEGATIVE RODS
--- NOTE | 2019-08-24 14:30 | NUR ---
DISCHARGE PLANNING: THIS IS A 73 Y/O MALE PATIENT FROM HOME, WHO CAME IN DUE TO GENERAL MALAISE, LOSS OF APPETITE AND GI UPSET. PAST MEDICAL HISTORY INCLUDE CHF, A FIB, HTN, DIABETES, HYPOTHYROID, HYPERLIPIDEMIA, ALCOHOL ABUSE AND POSSIBLE LIVER CIRRHOSIS. INITIAL DIAGNOSIS OF CHF AND URINARY TRACT INFECTION. CURRENT LABS INCLUDE WBC 23.3, H/H 10.7/33.5, NA/K 135/3.4, MAG 1.7 AND CRP 14.8. D DIMER 2920, PT/INR 19.7/2.00 AND APTT 39.5. ON ROCEPHIN AND AZITHROMYCIN. ON 02 AT 2LPM/NC - O2 SAT 100. MRSA NARES, BLOOD AND URINE CS PENDING. CARDIO AND PULMO CONSULTS IN PLACE. DC PLAN PENDING ON PATIENT'S RESPONSE TO TREATMENT. Addendum: 08/28/19 at 0950 by Katlyn Coleman CM SPOKE TO [facility] CERTIFIED [employer] REPORTER FOR [facility] [phone] FAX [phone] TO VERIFY THEY WERE DELEGATED TO PROVIDE AUTH FOR SNF. HE PROVIDED [facility] A CONTRACTED FACILITY. FAXED CLINICALS TO [facility] AND [facility]. Addendum: 08/28/19 at 1035 by Katlyn Coleman CM FOLLOWED UP WITH STEFFANIE AT [facility], THEY RECEIVED THE PATIENTS CLINICALS AND WILL REVIEW THEM. WILL FOLLOW UP. Addendum: 08/28/19 at 1151 by Katlyn Coleman CM FOLLOWED UP WITH URBANO AT [facility], SHE SPOKE TO THE PATIENTS DAUGHTER RAE FORMAN [phone], SHE REFUSED FOR HER FATHER TO GO TO A SNF. I TRIED CONTACTING THE DAUGHTER TO EXPLAIN THE REASONING FOR A SNF BUT NO ANSWER. I LEFT A VOICEMAIL WITH A CALL BACK NUMBER. I WILL FOLLOW UP AND ALSO DISCUSS IF THE FAMILY WOULD AGREE TO HOME HEALTH. Addendum: 08/28/19 at 1447 by Katlyn Coleman CM SPOKE TO DAUGHTER RAE ABOUT HAVING A HOME HEALTH AGENCY COME TO HER FATHERS HOME TO ASSIST PATIENT. SHE HAD A LOT OF QUESTIONS TO WHY HER FATHER NEEDED THE HOME HEALTH AGENCY FOR PHYSICAL THERAPY, I TRANSFERRED THE CALL TO DR. WILD TO EXPLAIN TO THE DAUGHTER THE NEED FOR HOME HEALTH. I CALLED DAUGHTER BACK TO SEE IF SHE AGREED BUT NO ANSWER, LEFT A VOICEMAIL WILL FOLLOW UP AGAIN. Addendum: 08/28/19 at 1451 by Katlyn Coleman CM SPOKE WITH AUGUSTA AT [facility] HE PROVIDED [facility] [phone] FAX NUMBER [phone]. SPOKE TO SINDI AT [facility] AND FAXED CLINICALS. Addendum: 08/28/19 at 1458 by Katlyn Coleman CM FOLLOWED UP WITH [facility] AND SPOKE TO FINA, SHE SAID THEY WILL ACCEPT PATIENT WAITING ON AUTH FROM [facility]. Addendum: 08/28/19 at 1545 by Katlyn Coleman CM VICKI RAE CALLED BACK AND DENYING A HOME HEALTH AGENCY. SHE STATED THAT IT WOULD BE TOO DIFFICULT FOR HER FATHER TO WALK DOWN STAIRS TO LET NURSE IN AND SHE WOULD NOT BE AROUND TO HELP LET NURSE IN DUE TO WORK. I NOTIFIED THE RESIDENTS THEY ARE GOING TO CONTACT DR. RASCON. Addendum: 08/28/19 at 1608 by Katlyn Coleman CM VICKI ISAACZABETH AGREED TO HOME HEALTH AGENCY SHE REQUESTED THAT IF POSSIBLE THE NURSE COMES AROUND 9:30 AM-10:00 AM TO PROVIDE HELP OPENING THE DOOR FOR THE NURSE. AUGUSTA PROVIDED AUTH # [id number]. CONTACTED FINA AT [facility] TO LET HER KNOW PATIENTS DAUGHTER AGREED. FINA WILL REACH OUT TO DAUGHTER.
--- NOTE | 2019-08-24 14:55 | NUR ---
HELP DESK ADMINISTRATOR NOTE: [facility] ATTEMPTED TO CONTACT PATIENT'S DAUGHTER RAE FORMAN [phone]. SW LEFT VM. [facility] WILL FOLLOW UP NEEDED. Addendum: 08/25/19 at 0848 by Ty Vaughan [facility] Patient: Arianna Formankody Renteria : 1945 Age/Sex: 73/M Unit#: [id number] Room/Bed: 123/A User: Ty Vaughan Date: 08/25/19 08:40 Type: CM: Discharge Planning Basic Screen: Yes High Risk DC Screen [place]: RAE Kelley Relationship: DAUGHTER Pre-Admission Living Arrangements: Lives with Other Prior ADL Independent Current Home Health Name/Tel: N/A Current DME/02 Name/Tel: [facility] Current Hospice Name/Tel: N/A Current Dialysis Name/Tel: N/A Healthcare Decision Maker: Patient Advance Directive No Physician Orders for Life Sustaining Treatment Form No Patient/Family Have Educational Needs No Discipline: Case Mgt/Social Svcs Tentative Discharge Plan/Destination: No Needs Identified Will require assistance post discharge: No Referred to Financial Analysis Advisor: No Tentative Discharge Plan Summary: PATIENT IS A 73-YEAR-OLD MALE ADMITTED FOR CHF. PATIENT HAS PMHX OF AFIB, HYPERTENSION, DIABETES, HYPOTHYROID, HYPERLIPEDCEMIA, ALCOHOLISM, AND POSSIBLE CIRRHOSIS. SW WAS UNABLE TO MEET PATIENT AT BEDSIDE DUE TO MEDICAL CONDITION. SW CONTACTED PATIENT'S EMERGENCY CONTACT/DAUGHTER, RAE FORMAN [phone]. PER RAE, PATIENT IS INDEPENDENT WITH ALL ADLS, AND REPORTS NO HISTORY OF MENTAL HEALTH. CHART INDICATED THAT PATIENT HAS PMHX OF ALCOHOLISM BUT RAE STATED NO SUBSTANCE ABUSE WAS CURRENT. TENTATIVE DISCHARGE PLAN IS FOR PATIENT TO RETURN HOME. NO FURTHER NEEDS IDENTIFIED. Signature: CHIDI RICKS Date: August 25, 2019 Time: 08:46
--- NOTE | 2019-08-24 15:00 | NUR ---
PATIENT REFUSED FLEET ENEMA. HE STATED THAT HE JUST WANTS TO TRY TO HAVE A BM ON HIS OWN. PATIENT EDUCATED ON IMPORTANCE OF MEDICATION ORDER. HE EXPRESSED UNDERSTANDING BUT STILL REFUSED. WILL TRY AGAIN LATER. KUB STAT ORDER IN PLACE. O2 VIA 2L NC IN PLACE AND PATIENT O2 SAT AT 100%. NO COMPLAINTS OF PAIN VERBALIZED FROM PATIENT.
--- NOTE | 2019-08-24 15:16 | NUR ---
RADIOLOGY AT BEDSIDE.
--- NOTE | 2019-08-24 15:26 | NUR ---
MARIANNB COMPLETED BEDSIDE.
--- NOTE | 2019-08-24 15:36 | NUR ---
08/24/19 RD INITIAL ASSESSMENT COMPLETED PLEASE REFER TO NUTRITION ASSESSMENT UNDER CARE ACTIVITY FOR ESTIMATED NUTRITIONAL NEEDS. 1. RECOMMEND CCHO 60GM AND NA2GM DIET TOLERATED 2. RECOMMEND GLUCERNA BID 3. RD TO F/U WITH NUTRITION EDUCATION ON DIABETES 4. RD TO FOLLOW-UP 3-5 DAYS, MODERATE RISK LIZZETH TENA RD
[2019-08-24 16:00] VITALS: BP 102/64
--- NOTE | 2019-08-24 16:10 | NUR ---
LASIX IVPUSH GIVEN TO PATIENT PER MD ORDER, VITAL SIGNS WITHIN NORMAL RANGE. BLOOD SUGAR CHECK 185, WILL COVER WITH SLIDING SCALE. PATIENT HAS NO S/S OF DISTRESS AT THIS TIME, NO COMPLAINTS OF PAIN. PATIENT CALL LIGHT WITHIN REACH AND BED IN LOW POSITION.
--- NOTE | 2019-08-24 16:45 | NUR ---
PATIENT CONTINUES TO REFUSE FLEET ENEMA. EDUCATION GIVEN ON MEDICATION AND PATIENT STATED THAT HE STILL DOESN'T WANT IT.
--- NOTE | 2019-08-24 17:45 | NUR ---
GIVEN 2 UNITS OF HUMALOG INSULIN SUBQ IN THE ABDOMEN FOR BLOOD SUGAR 185. EXPLAINED MEDICATION. PATIENT TOLERATED WELL. DINNER TRAY AT BEDSIDE TABLE. WILL CONTINUE TO MONITOR
[2019-08-24] MEDS: INSULIN LISPRO SLIDING SCALE 100 UNITS/ML VIAL SUBQ PRN ×2 (17:47→21:32)
--- NOTE | 2019-08-24 18:25 | NUR ---
PATIENT ASSISTED TO BEDSIDE COMMODE, HE HAS THE URGENCY TO HAVE A BM
--- NOTE | 2019-08-24 18:40 | NUR ---
MADE 2 ATTEMPTS TO CALL DAUGHTER TO ASK FOR THE MOLD TOOLER TO PATIENTS [facility] TO BE BROUGHT TO THE HOSPITAL. NO ANSWER. WILL ENDORSE MESSAGE TO ONCOMING NIGHT NURSE.
--- NOTE | 2019-08-24 19:13 | NUR ---
REPORT GIVEN TO ONCOMING NIGHT NURSE, PATIENT LAYING IN BED WITH O2 @ 2L NC. NO S/S OF DISTRESS NOTED. NO CURRENT COMPLAINT VOICED FROM PATIENT. HE USED BEDSIDE COMMODE FOR BM AND WAS ASSISTED BACK TO BED. CALL LIGHT WITHIN REACH AND BED IN LOW POSITION.
--- NOTE | 2019-08-24 19:15 | NUR ---
RECEIVED BEDSIDE REPORT FROM AM SHIFT RN FOR PT'S CONTINUITY OF CARE. PT IS ON LEAK PATCHER, IS ON 2L O2 VIA NC, ON REGULAR DIET, HAS LEFT AC 20G WITH NS AT 20ML/HR, SKIN IS INTACT, ON ISOLATION FOR R/O COVID. SAFETY MEASURES IN PLACE, ISOLATION PRECAUTION IN PLACE, AND CALL LIGHT IS WITHIN REACH. WILL MONITOR PT THROUGHOUT SHIFT.
[2019-08-24 20:00] VITALS: BP 115/66
[2019-08-24] MEDS ORDERED: CRUSHER, PILL MC ONE (20:43)
[2019-08-24] MEDS ORDERED: metFORMIN 500 MG TAB PO SCH (21:00)
[2019-08-24] MEDS ORDERED: RIVAROXABAN 10 MG TAB PO SCH (21:00)
[2019-08-24] MEDS: MEROPENEM 500 MG in NACL 0.9% 50 ML IV SCH (21:27)
[2019-08-24] MEDS: ECOTRIN 81 MG TABEC PO SCH (21:27)
[2019-08-24] MEDS: LOSARTAN 50 MG TAB PO SCH (21:29)
[2019-08-24] MEDS: AMIODARONE 200 MG TAB PO SCH (21:29)
--- NOTE | 2019-08-24 21:30 | NUR ---
ADMINISTERED SCHEDULED MEDICATIONS ORDERED. PT TOLERATED THEM WELL. PT TEACHING GIVEN, PT VERBALIZED UNDERSTANDING. BLOOD GLUCOSE CHECKED AND CHARTED, ADMINISTERED SUBQ INSULIN PER SLIDING SCALE PROTOCOL. SPOKE WITH THE PT'S DAUGHTER RE: PT'S UPDATE AND BATTERY FOR [facility] MACHINE, PT REQUESTED FOR DAUGHTER TO BE THE PRIMARY CONTACT FOR ANY INQUIRIES FOR PT. PT'S DAUGHTER VERBALIZED AGREEMENT. PT'S NEEDS MET, AND PT MADE COMFORTABLE. CALL LIGHT IS WITHIN REACH. WILL CONTINUE TO MONITOR PT.
[2019-08-25] VITALS: BP 123/75
--- NOTE | 2019-08-25 02:23 | NUR ---
MADE ROUNDS. PT ASLEEP WITH NO SIGNS OF DISTRESS OR DISCOMFORT. WILL CONTINUE TO MONITOR PT.
[2019-08-25 04:00] VITALS: BP 101/56
--- NOTE | 2019-08-25 04:30 | NUR ---
VS CHECKED AND CHARTED. PT WAS ASLEEP WITH NO SIGNS OF DISTRESS. WILL CONTINUE TO MONITOR PT.
[2019-08-25] MEDS: BLOOD GLUCOSE MONITORING 1 DEV DEV FS SCH ×4 (06:00→21:39)
--- NOTE | 2019-08-25 06:10 | NUR ---
BLOOD GLUCOSE CHECKED AND CHARTED. NO INSULIN COVERAGE NEEDED. LAB PERSONNEL CALLED FOR BLOOD CULTURE RESULT - GRAM NEGATIVE RODS. DR. RICE AWARE. PT REQUESTED AND PROVIDED WITH SANDWICH AND TEA. PT SPILLED TEA ON BED, CHANGED BEDDINGS AND GAVE PT SPONGE BATH. PT TOLERATED ACTIVITY WELL. PT DENIES ANY PAIN OR DISCOMFORT. WILL ENDORSE TO AM SHIFT RN FOR PT'S CONTINUITY OF CARE.
[2019-08-25 06:23] LABS: BASOPHILS # (AUTO) 0.1 K/uL (0.00-0.22); BASOPHILS % (AUTO) 0.7 % (0.0-2.0); EOSINOPHILS # (AUTO) 0.2 K/uL (0-0.4); EOSINOPHILS % (AUTO) 1.1 % (0.0-4.0); HEMATOCRIT 32.2 % (36-52); HEMOGLOBIN 10.4 g/dL (12.0-18.0); LYMPHOCYTES % (AUTO) 4.9 % (20.5-51.1); MEAN CORPUSCULAR HEMOGLOBIN 29 pg (27-31); MEAN CORPUSCULAR HGB CONC 32 g/dL (33-37); MEAN CORPUSCULAR VOLUME 89.6 fL (80-94); MONOCYTES # (AUTO) 1.4 K/uL (0.8-1.0); MONOCYTES % (AUTO) 6.9 % (1.7-9.3); NEUTROPHILS # (AUTO) 17.5 K/uL (1.8-7.7); NEUTROPHILS % (AUTO) 86.4 % (42.2-75.2); PLATELET COUNT (AUTO) 144 K/uL (140-450); RED BLOOD CELL COUNT(AUTO) 3.59 MIL/uL (4.20-6.10); RED CELL DISTRIBUTION WIDTH 15.6 % (11.6-13.7); WHITE BLOOD COUNT (AUTO) 20.3 K/uL (4.8-10.8)
[2019-08-25 07:08] LABS: ALBUMIN 1.8 g/dL (3.4-5.0); ANION GAP 13.4 (8-16); ASPARTATE AMINOTRANSFERASE 34 U/L (15-37); CARBON DIOXIDE 24.4 mmol/L (21-32); CHLORIDE 101 mmol/L (98-107); CREATININE 2.4 mg/dL (0.6-1.3); GLUCOSE 149 mg/dL (74-106); LACTATE DEHYDROGENASE 133 U/L (85-227); POTASSIUM 3.8 mmol/L (3.5-5.1); SODIUM SERUM 135 mmol/L (136-145); TOTAL BILIRUBIN 1.4 mg/dL (0.0-1.0)
--- NOTE | 2019-08-25 07:15 | NUR ---
REPORT GIVEN BY ONUR DE JESUS. PATIENT IN STABLE CONDITION. PLANS OF CARE DISCUSSED. PATIENT IS AWAKE, ALERT AND ORIENTED X4. INTRODUCED SELF. NO S/S OF DISTRESS NOTED. O2 ON @ 2L VIA NC. IV INTACT AND PATENT TO LAC. BED SIDE COMMODE IN PLACE. BED IN LOW POSITION. SAFETY MEASURES IN PLACE. CALL LIGHT WITHIN REACH.
[2019-08-25 07:50] LABS: UREA NITROGEN, BLOOD 71 mg/dL (7-18)
[2019-08-25 08:00] VITALS: BP 118/65
[2019-08-25 08:25] LABS: PROTHROMBIN TIME 21.8 secs (10.8-13.4)
[2019-08-25] MEDS: FERROUS SULFATE 325 MG TABEC PO SCH (08:52)
[2019-08-25] MEDS: ZINC SULF 220 MG CAP PO SCH (08:53)
[2019-08-25] MEDS: ASCORBIC ACID 500 MG TAB PO SCH (08:53)
[2019-08-25] MEDS: FAMOTIDINE 20 MG TAB PO SCH (08:53)
[2019-08-25] MEDS: MEROPENEM 500 MG in NACL 0.9% 50 ML IV SCH ×2 (08:53→21:24)
[2019-08-25] MEDS: VITAMIN D 400 IU TAB PO SCH (08:53)
[2019-08-25] MEDS: LEVOTHYROXINE 0.075 MG TAB PO SCH (08:54)
[2019-08-25] MEDS: DOCUSATE SODIUM 100 MG GELCAP PO SCH ×2 (08:54→21:33)
[2019-08-25] MEDS: AZITHROMYCIN 250 MG TAB PO SCH (08:56)
[2019-08-25] MEDS: METOPROLOL 25 MG TAB PO SCH ×2 (08:57→21:00)
[2019-08-25] MEDS: ATORVASTATIN 20 MG TAB PO SCH (08:57)
[2019-08-25] MEDS: FUROSEMIDE 40 MG/4 ML VIAL IVP SCH ×2 (09:00→17:06)
--- NOTE | 2019-08-25 09:00 | NUR ---
AM MEDICATIONS GIVEN AND TOLERATED WELL. PATIENT IS AWAKE, VERBALLY RESPONSIVE. DENIES ANY PAIN OR DISCOMFORT. CALL LIGHT WITHIN REACH.
[2019-08-25 12:00] VITALS: BP 96/56
--- NOTE | 2019-08-25 12:00 | NUR ---
PATIENT REMAINS STABLE. PATIENT ABLE TO USE BEDSIDE COMMODE WITH STANDBY ASSIST. NEEDS MET AT THIS TIME. BG CHECKED 186. HUMALOG COVERAGE 2UNITS TO BE GIVEN.
[2019-08-25] MEDS: INSULIN LISPRO SLIDING SCALE 100 UNITS/ML VIAL SUBQ PRN ×2 (12:36→22:04)
--- NOTE | 2019-08-25 14:00 | NUR ---
PATIENT AWAKE, ALERT AND VERBALLY RESPONSIVE. DENIES ANY SOB, PAIN OR DISCOMFORT. ABLE TO MAKE NEEDS KNOWN. CALL LIGHT WITHIN REACH.
[2019-08-25 16:00] VITALS: BP 103/68
--- NOTE | 2019-08-25 16:00 | NUR ---
PATIENT ALERT AND ORIENTED X4. DENIES ANY PAIN OR DISCOMFORT AT THIS TIME. ABLE TO MAKE NEEDS KNOWN. CALL LIGHT WITHIN REACH.
--- NOTE | 2019-08-25 16:47 | NUR ---
BG CHECK 155. HUMALOG 2 UNITS TO BE GIVEN.
--- NOTE | 2019-08-25 18:48 | NUR ---
PATIENT REMAINS STABLE. AAOX4. PATIENT EATING DINNER. NO S/S OF DISTRESS NOTED. WILL ENDORSE TO NIGHT NURSE FOR CONTINUITY OF CARE.
--- NOTE | 2019-08-25 19:10 | NUR ---
RECEIVED ENDORSEMENT FROM AM SHIFT RN. PATIENT IS AOX4. RESPIRATION EVEN AND UNLABORED. NO SOB. ON 02 AT 2LPM VIA NC. NO PAIN NOTED. IV SITE AT LAC 20 GAUGE. INTACT. INFUSING NS AT 20CC/HR. FALL PREVENTION PROTOCOL IN PLACE. DROPLET PRECAUTION IN PLACE AT ALL TIMES. PLAN OF CARE WAS DISCUSSED. CALL LIGHT WITHIN REACH. WILL CONTINUE TO MONITOR.
[2019-08-25 20:00] VITALS: BP 102/54
[2019-08-25] MEDS: LOSARTAN 50 MG TAB PO SCH (21:00)
[2019-08-25] MEDS: ECOTRIN 81 MG TABEC PO SCH (21:33)
[2019-08-25] MEDS: AMIODARONE 200 MG TAB PO SCH (21:38)
--- NOTE | 2019-08-25 21:39 | NUR ---
PATIENT IS RESTING. DUE MEDS GIVEN ORDERED. BLOOD SUGAR 153. PATIENT REFUSED 2 UNITS INSULIN BECAUSE HE DIDN'T EAT MUCH. BP IS 102/54 HR 80. LOSARTAN 50MG AND LOPRESSOR 25MG NOT GIVEN DUE TO DECREASED BP. IV ANTIBIOTIC GIVEN. TOLERATED WELL. MED EDUCATION PROVIDED. NO A/R NOTED. DENIES PAIN. WILL CONTINUE TO MONITOR.
[2019-08-25] MEDS: NACL 0.9% 1,000 ML IV SCH (23:02)
--- NOTE | 2019-08-25 23:30 | NUR ---
CHECKED PATIENT. ASLEEP. RESPIRATION EVEN AND UNLABORED. NO SOB. CALL LIGHT WITHIN REACH. WILL CONTINUE TO MONITOR.
[2019-08-26] VITALS: BP 123/55
--- NOTE | 2019-08-26 01:39 | NUR ---
PATIENT IS SLEEPING. NO SOB. WILL CONTINUE TO MONITOR.
--- NOTE | 2019-08-26 03:17 | NUR ---
PATIENT IS SLEEPING. RESPIRATION EVEN AND UNLABORED. NO SOB. WILL CONTINUE TO MONITOR.
[2019-08-26 04:00] VITALS: BP 112/66
--- NOTE | 2019-08-26 05:40 | NUR ---
PATIENT IS AWAKE. DENIES PAIN. PATIENT DRINK MILK. PATIENT CARE DONE. KEPT CLEAN, DRY AND COMFORTABLE AT ALL TIMES. WILL CONTINUE TO MONITOR.
[2019-08-26] MEDS: BLOOD GLUCOSE MONITORING 1 DEV DEV FS SCH ×4 (05:43→20:52)
[2019-08-26 06:09] LABS: HEPATITIS A ANTIBODY IGM Negative (Negative); HEPATITIS B CORE AB TOTAL Negative (Negative); HEPATITIS B SURFACE ANTIBODY Non Reactive (.); HEPATITIS B SURFACE ANTIGEN Negative (Negative)
--- NOTE | 2019-08-26 07:15 | NUR ---
PATIENT IS IN STABLE CONDITION. NO SOB. ENDORSED TO AM SHIFT RN FOR CONTINUITY OF CARE.
--- NOTE | 2019-08-26 07:18 | NUR ---
RECEIVED REPORT FROM NIGHT NURSE PT IS STABLE ON 2LPM OF OXYGEN VIA NC. SKIN IS INTACT, IV SITES INTACT.SAFETY MEASURES IN PLACE WILL CONTINUE TO MONITOR.
[2019-08-26 07:27] LABS: BASOPHILS # (AUTO) 0.2 K/uL (0.00-0.22); BASOPHILS % (AUTO) 1.2 % (0.0-2.0); EOSINOPHILS # (AUTO) 0.2 K/uL (0-0.4); EOSINOPHILS % (AUTO) 1.1 % (0.0-4.0); HEMATOCRIT 36.1 % (36-52); HEMOGLOBIN 11.5 g/dL (12.0-18.0); LYMPHOCYTES # (AUTO) 1.3 K/uL (2.0-11.5); LYMPHOCYTES % (AUTO) 7.1 % (20.5-51.1); MEAN CORPUSCULAR HEMOGLOBIN 29 pg (27-31); MEAN CORPUSCULAR HGB CONC 32 g/dL (33-37); MONOCYTES # (AUTO) 1.3 K/uL (0.8-1.0); MONOCYTES % (AUTO) 6.9 % (1.7-9.3); NEUTROPHILS # (AUTO) 15.7 K/uL (1.8-7.7); NEUTROPHILS % (AUTO) 83.7 % (42.2-75.2); PLATELET COUNT (AUTO) 168 K/uL (140-450); RED BLOOD CELL COUNT(AUTO) 4.01 MIL/uL (4.20-6.10); WHITE BLOOD COUNT (AUTO) 18.7 K/uL (4.8-10.8)
[2019-08-26 08:00] VITALS: BP 127/68
[2019-08-26 08:42] LABS: PROTHROMBIN TIME 13.9 secs (10.8-13.4)
[2019-08-26] MEDS: AZITHROMYCIN 250 MG TAB PO SCH (09:04)
[2019-08-26] MEDS: ASCORBIC ACID 500 MG TAB PO SCH (09:04)
[2019-08-26] MEDS: DOCUSATE SODIUM 100 MG GELCAP PO SCH ×2 (09:05→21:16)
[2019-08-26] MEDS: LEVOTHYROXINE 0.075 MG TAB PO SCH (09:05)
[2019-08-26] MEDS: FERROUS SULFATE 325 MG TABEC PO SCH (09:05)
[2019-08-26] MEDS: ZINC SULF 220 MG CAP PO SCH (09:05)
[2019-08-26] MEDS: ATORVASTATIN 20 MG TAB PO SCH (09:06)
[2019-08-26] MEDS: FAMOTIDINE 20 MG TAB PO SCH (09:06)
[2019-08-26] MEDS: METOPROLOL 25 MG TAB PO SCH ×2 (09:06→21:16)
[2019-08-26] MEDS: FUROSEMIDE 40 MG/4 ML VIAL IVP SCH ×2 (09:07→16:38)
[2019-08-26] MEDS: MEROPENEM 500 MG in NACL 0.9% 50 ML IV SCH (09:08)
[2019-08-26] MEDS: VITAMIN D 400 IU TAB PO SCH (09:26)
--- NOTE | 2019-08-26 10:00 | NUR ---
MEDICATIONS DUE GIVEN AND CHECK VITAL SIGNS PRIOR TO MEDICATIONS, PT DENIES PAIN AND WAS ABLE TO SLEEP WELL LAST NIGHT. NO DISTRESS NOTED. SAFETY MEASURES IN PLACE WILL CONTINUE TO MONITOR.
--- NOTE | 2019-08-26 11:30 | NUR ---
BLOOD GLUCOSE MONITORING DONE 237MG/DL, INSULIN COVERAGE GIVEN. PT DOES LIKE THE FOOD, SAFETY MEASURES IN PLACE AND CALL LIGHT WITHIN REACH. WILL CONTINUE TO MONITOR
[2019-08-26 12:00] VITALS: BP 108/60
[2019-08-26] MEDS: INSULIN LISPRO SLIDING SCALE 100 UNITS/ML VIAL SUBQ PRN ×3 (12:09→21:17)
[2019-08-26 12:32] LABS: ASPARTATE AMINOTRANSFERASE 42 U/L (15-37); CARBON DIOXIDE 24.9 mmol/L (21-32); CREATININE 2.3 mg/dL (0.6-1.3); GLUCOSE 147 mg/dL (74-106); TOTAL BILIRUBIN 1.4 mg/dL (0.0-1.0)
[2019-08-26 13:13] LABS: ANION GAP 17.1 (8-16); CHLORIDE 101 mmol/L (98-107); LACTATE DEHYDROGENASE 140 U/L (85-227); SODIUM SERUM 139 mmol/L (136-145); UREA NITROGEN, BLOOD 65 mg/dL (7-18)
--- NOTE | 2019-08-26 14:20 | NUR ---
MADE ROUNDS PT IS STABLE NO DISTRESS NOTED AND DENIES PAIN, SAFETY MEASURES IN PLACE WILL CONTINUE TO MONITOR
[2019-08-26 16:00] VITALS: BP 122/77
--- NOTE | 2019-08-26 16:30 | NUR ---
BLOOD GLUCOSE MONITORING DONE, PT HAS NO APPETITE AND DISLIKES FOOD. WILL CONTINUE TO MONITOR.
--- NOTE | 2019-08-26 19:05 | NUR ---
RECEIVED BEDSIDE REPORT FROM AM SHIFT RN FOR PT'S CONTINUITY OF CARE. PT IS AAOX4, AMBULATORY TO THE BATHROOM, IS ON PROJECT OFFICER, IS ON 2L O2 VIA NC, HAS A RIGHT AC 20G WITH NS AT 20ML/HR. SAFETY MEASURES IN PLACE, ISOLATION PRECAUTION FOR R/O COVID IN PLACE, AND CALL LIGHT IS WITHIN REACH. WILL MONITOR PT THROUGHOUT SHIFT.
--- NOTE | 2019-08-26 19:05 | NUR ---
ENDORSED PT TO NIGHT NURSE FOR CONTINUITY OF CARE, PT IS STABLE
[2019-08-26 20:00] VITALS: BP 123/79
[2019-08-26] MEDS ORDERED: cefTRIAXone 1,000 MG VIAL ONE (20:09)
--- NOTE | 2019-08-26 21:15 | NUR ---
BLOOD GLUCOSE CHECKED AND CHARTED. ADMINISTERED SCHEDULED MEDICATIONS ORDERED AND ADMINISTERED INSULIN SUBQ PER SLIDING SCALE PROTOCOL, PT TOLERATED THEM WELL. ADMINISTERED SCHEDULED IV ABX, NO REACTION NOTED. EXPLAINED TO PT THE QUILTING MACHINE OPERATOR ROUTINE, PT VERBALIZED UNDERSTANDING. PT REQUESTED TO NOT BE DISTURBED MUCH POSSIBLE. SAFETY MEASURES IN PLACE, AND CALL LIGHT IS WITHIN REACH. WILL CONTINUE TO MONITOR PT.
[2019-08-26] MEDS: ECOTRIN 81 MG TABEC PO SCH (21:16)
[2019-08-26] MEDS: LOSARTAN 50 MG TAB PO SCH (21:16)
[2019-08-26] MEDS: AMIODARONE 200 MG TAB PO SCH (21:16)
[2019-08-26] MEDS: NACL 0.9% 1,000 ML IV SCH (23:02)
[2019-08-27] VITALS: BP 116/67
--- NOTE | 2019-08-27 | NUR ---
PT ASLEEP WITH NO SIGNS OF DISTRESS. WILL CONTINUE TO MONITOR PT.
--- NOTE | 2019-08-27 02:15 | NUR ---
PT'S IV BEEPING. PT AWAKE. INSTRUCTED PT TO KEEP ARM STRAIGHT, PT VERBALIZED UNDERSTANDING. PT DENIES ANY PAIN OR DISCOMFORT. WILL CONTINUE TO MONITOR PT.
[2019-08-27 04:00] VITALS: BP 113/66
--- NOTE | 2019-08-27 04:30 | NUR ---
VS CHECKED AND CHARTED. PT ASLEEP WITH NO SIGNS OF DISTRESS. WILL CONTINUE TO MONITOR PT.
[2019-08-27] MEDS: BLOOD GLUCOSE MONITORING 1 DEV DEV FS SCH ×4 (06:00→21:28)
--- NOTE | 2019-08-27 06:00 | NUR ---
BLOOD GLUCOSE CHECKED AND CHARTED. NO INSULIN COVERAGE NEEDED. PT DENIES ANY PAIN OR DISCOMFORT. PT STATED WOULD LIKE TO REST MORE. PT'S NEEDS MET AT THIS TIME. WILL ENDORSE TO AM SHIFT RN FOR PT'S CONTINUITY OF CARE.
--- NOTE | 2019-08-27 07:31 | NUR ---
RECEIVED REPORT FROM ADMIRALTY LAWYER RN. AOX4, NO C/O PAIN, NO SOB, RESPIRATIONS ARE EVEN AND UNLABORED. PT IS AMBULATORY. TELE MONITOR ATTACHED. ON ISOLATION FOR R/O COVID. ON 2L O2 NC. IV SITE LEFT AC 20G WITH NS AT 20ML/HR. SAFETY PRECAUTIONS IN PLACE. CALL LIGHT WITHIN REACH. WILL TO MONITOR.
[2019-08-27 07:52] LABS: PROTHROMBIN TIME 12.4 secs (10.8-13.4)
[2019-08-27 07:59] LABS: BASOPHILS # (AUTO) 0.1 K/uL (0.00-0.22); BASOPHILS % (AUTO) 0.9 % (0.0-2.0); EOSINOPHILS # (AUTO) 0.3 K/uL (0-0.4); EOSINOPHILS % (AUTO) 2.4 % (0.0-4.0); HEMATOCRIT 33.6 % (36-52); HEMOGLOBIN 10.9 g/dL (12.0-18.0); LYMPHOCYTES # (AUTO) 1.5 K/uL (2.0-11.5); LYMPHOCYTES % (AUTO) 10.8 % (20.5-51.1); MEAN CORPUSCULAR HEMOGLOBIN 29 pg (27-31); MEAN CORPUSCULAR HGB CONC 32 g/dL (33-37); MEAN CORPUSCULAR VOLUME 89.1 fL (80-94); MONOCYTES # (AUTO) 1.4 K/uL (0.8-1.0); MONOCYTES % (AUTO) 9.8 % (1.7-9.3); NEUTROPHILS # (AUTO) 10.8 K/uL (1.8-7.7); NEUTROPHILS % (AUTO) 76.1 % (42.2-75.2); PLATELET COUNT (AUTO) 184 K/uL (140-450); RED BLOOD CELL COUNT(AUTO) 3.78 MIL/uL (4.20-6.10); RED CELL DISTRIBUTION WIDTH 15.7 % (11.6-13.7); WHITE BLOOD COUNT (AUTO) 14.2 K/uL (4.8-10.8)
[2019-08-27 08:00] VITALS: BP 98/65
[2019-08-27 08:00] LABS: ALBUMIN 1.7 g/dL (3.4-5.0); ANION GAP 13.5 (8-16); ASPARTATE AMINOTRANSFERASE 42 U/L (15-37); CARBON DIOXIDE 27.3 mmol/L (21-32); CHLORIDE 101 mmol/L (98-107); GLUCOSE 131 mg/dL (74-106); LACTATE DEHYDROGENASE 132 U/L (85-227); MAGNESIUM 1.5 mg/dL (1.8-2.4); PHOSPHORUS 3.1 mg/dL (2.5-4.9); POTASSIUM 3.8 mmol/L (3.5-5.1); SODIUM SERUM 138 mmol/L (136-145); TOTAL BILIRUBIN 0.9 mg/dL (0.0-1.0)
[2019-08-27] MEDS: FERROUS SULFATE 325 MG TABEC PO SCH (08:00)
[2019-08-27 08:11] LABS: UREA NITROGEN, BLOOD 64 mg/dL (7-18)
[2019-08-27] MEDS ORDERED: POTASSIUM CHLORIDE 10 MEQ TABER PO SCH (09:00)
[2019-08-27] MEDS: MAG SULF 2000 MG/WATER PREMIX 50 ML IV SCH ×2 (09:00→11:00)
--- NOTE | 2019-08-27 09:15 | NUR ---
DUE MORNING MEDS GIVEN. NO COMPLAINTS AT THIS TIME
[2019-08-27] MEDS: VITAMIN D 400 IU TAB PO SCH (09:48)
[2019-08-27] MEDS: DOCUSATE SODIUM 100 MG GELCAP PO SCH ×2 (09:48→21:29)
[2019-08-27] MEDS: ATORVASTATIN 20 MG TAB PO SCH (09:48)
[2019-08-27] MEDS: FUROSEMIDE 40 MG/4 ML VIAL IVP SCH ×2 (09:48→16:50)
[2019-08-27] MEDS: FAMOTIDINE 20 MG TAB PO SCH (09:49)
[2019-08-27] MEDS: LEVOTHYROXINE 0.075 MG TAB PO SCH (09:49)
[2019-08-27] MEDS: ASCORBIC ACID 500 MG TAB PO SCH (09:49)
[2019-08-27] MEDS: METOPROLOL 25 MG TAB PO SCH ×2 (09:49→21:00)
[2019-08-27] MEDS: ZINC SULF 220 MG CAP PO SCH (09:49)
--- NOTE | 2019-08-27 11:00 | NUR ---
AWAKE, RESTING IN BED. NO APPARENT DISTRESS
[2019-08-27 12:00] VITALS: BP 95/63
--- NOTE | 2019-08-27 12:21 | NUR ---
BLOOD SUGAR 223. COVERAGE GIVEN
[2019-08-27] MEDS: INSULIN LISPRO SLIDING SCALE 100 UNITS/ML VIAL SUBQ PRN (12:22)
--- NOTE | 2019-08-27 14:08 | NUR ---
PT AWAKE. NO COMPLAINTS AT THIS TIME SEEN AND EXAMINED BY Gilmar HINES
[2019-08-27 16:00] VITALS: BP 96/55
--- NOTE | 2019-08-27 17:15 | NUR ---
NO COMPLAINTS AT THIS TIME. DUE MEDS GIVEN
--- NOTE | 2019-08-27 19:00 | NUR ---
IN STABLE CONDITION. WILL ENDORSE TO COMMERCIAL UNDERWRITER FOR CONTINUITY OF CARE
--- NOTE | 2019-08-27 19:15 | NUR ---
RECEIVED REPORT FROM PIYUSH RN DAYSHIFT NURSE AT BEDSIDE FOR CONTINUITY OF CARE, PT IN STABLE CONDITION.
[2019-08-27 20:00] VITALS: BP 107/77
--- NOTE | 2019-08-27 20:00 | NUR ---
PT IN BED RESTING WITH EYES CLOSED BUT AROUSABLE TO NAME AND LIGHT TOUCH. PT HAS LAC 20G INTACT AND ASYMPTOMATIC RUNNING AT 20MLS/HR. PT IS AOX3-4 WITH HX OF DM2. HE IS CONTINENT WITH SKIN INTACT. V/S FOLLOWS: T 97 P 73 R 16 B/P 107/ 02 100% ON 2 LITERS VIA N/C. PT RESPIRATIONS EVEN AND UNLABORED, HE ALSO DENIES PAIN. V/S FOLLOWS: T 97 P 73 R 16 B/P 107/ 02 100% ON ROOM AIR. ALL FALLS PRECAUTIONS IN PLACE AND COMMODE AT BEDSIDE.
[2019-08-27] MEDS ORDERED: RIVAROXABAN 10 MG TAB PO SCH (21:00)
--- NOTE | 2019-08-27 21:00 | NUR ---
PT IN BED FINGERSTICK IS 146 NO HUMALOG COVERAGE NOTED. GIVEN ORDERED ASA, COLACE, AND CORDORONE AND XARELTO, LOPRESSOR HELD DUE TO LOW B/P( 107/77). EDUCATION REGARDING MEDICATIONS AND SIDE EFFECTS PROVIDED AT BEDSIDE FOR CONTINUITY OF CARE,. ALL FALLS PRECAUTIONS IN PLACE.
[2019-08-27] MEDS: ECOTRIN 81 MG TABEC PO SCH (21:24)
[2019-08-27] MEDS: LOSARTAN 50 MG TAB PO SCH (21:29)
[2019-08-27] MEDS: AMIODARONE 200 MG TAB PO SCH (21:30)
--- NOTE | 2019-08-27 22:00 | NUR ---
PT IN BED RESTING NO C/O VOICED, ALL FALLS PRECAUTIONS IN PLACE.
[2019-08-27] MEDS: NACL 0.9% 1,000 ML IV SCH (23:02)
[2019-08-28] VITALS: BP 114/59
--- NOTE | 2019-08-28 | NUR ---
PT IN BED SLEEP NO C/O VOICED V/S FOLLOWS; T 97.0 P 60 R 18 B/P 114/59 02 99%. ALL FALLS PRECAUTIONS IN PLACE .
[2019-08-28 04:00] VITALS: BP 114/59
[2019-08-28 06:10] LABS: BASOPHILS # (AUTO) 0.1 K/uL (0.00-0.22); BASOPHILS % (AUTO) 0.6 % (0.0-2.0); EOSINOPHILS # (AUTO) 0.3 K/uL (0-0.4); EOSINOPHILS % (AUTO) 2.4 % (0.0-4.0); HEMATOCRIT 33.9 % (36-52); LYMPHOCYTES # (AUTO) 1.5 K/uL (2.0-11.5); LYMPHOCYTES % (AUTO) 11.3 % (20.5-51.1); MEAN CORPUSCULAR HEMOGLOBIN 29 pg (27-31); MEAN CORPUSCULAR HGB CONC 33 g/dL (33-37); MEAN CORPUSCULAR VOLUME 88.3 fL (80-94); MONOCYTES # (AUTO) 1.3 K/uL (0.8-1.0); MONOCYTES % (AUTO) 9.8 % (1.7-9.3); NEUTROPHILS # (AUTO) 10.3 K/uL (1.8-7.7); NEUTROPHILS % (AUTO) 75.9 % (42.2-75.2); PLATELET COUNT (AUTO) 203 K/uL (140-450); RED BLOOD CELL COUNT(AUTO) 3.84 MIL/uL (4.20-6.10); RED CELL DISTRIBUTION WIDTH 15.7 % (11.6-13.7); WHITE BLOOD COUNT (AUTO) 13.5 K/uL (4.8-10.8)
[2019-08-28 06:23] LABS: MAGNESIUM 1.9 mg/dL (1.8-2.4); PHOSPHORUS 3.3 mg/dL (2.5-4.9)
[2019-08-28 06:37] LABS: ANION GAP 12.1 (8-16); CARBON DIOXIDE 27.7 mmol/L (21-32); CHLORIDE 101 mmol/L (98-107); CREATININE 2.1 mg/dL (0.6-1.3); GLUCOSE 138 mg/dL (74-106); POTASSIUM 3.8 mmol/L (3.5-5.1); SODIUM SERUM 137 mmol/L (136-145); UREA NITROGEN, BLOOD 59 mg/dL (7-18)
[2019-08-28] MEDS: BLOOD GLUCOSE MONITORING 1 DEV DEV FS SCH ×3 (07:30→16:30)
--- NOTE | 2019-08-28 07:32 | NUR ---
RECEIVED REPORT FROM FISH AND WILDLIFE BIOLOGIST RN. AOX4, NO C/O PAIN, NO SOB, RESPIRATIONS ARE EVEN AND UNLABORED. PT IS AMBULATORY. TELE MONITOR ATTACHED. ON 2L O2 NC. IV SITE LEFT AC 20G WITH NS AT 20ML/HR. SAFETY PRECAUTIONS IN PLACE. CALL LIGHT WITHIN REACH. WILL CONTINUE TO MONITOR.
[2019-08-28 08:00] VITALS: BP 98/62
[2019-08-28] MEDS: FERROUS SULFATE 325 MG TABEC PO SCH (08:00)
--- NOTE | 2019-08-28 09:30 | NUR ---
DUE MEDS GIVEN. TOLERATED WELL
[2019-08-28] MEDS: ATORVASTATIN 20 MG TAB PO SCH (09:37)
[2019-08-28] MEDS: METOPROLOL 25 MG TAB PO SCH (09:37)
[2019-08-28] MEDS: FUROSEMIDE 40 MG/4 ML VIAL IVP SCH ×2 (09:37→17:38)
[2019-08-28] MEDS: FAMOTIDINE 20 MG TAB PO SCH (09:37)
[2019-08-28] MEDS: VITAMIN D 400 IU TAB PO SCH (09:37)
[2019-08-28] MEDS: DOCUSATE SODIUM 100 MG GELCAP PO SCH (09:37)
[2019-08-28] MEDS: LEVOTHYROXINE 0.075 MG TAB PO SCH (09:38)
[2019-08-28] MEDS: ASCORBIC ACID 500 MG TAB PO SCH (09:38)
[2019-08-28] MEDS: ZINC SULF 220 MG CAP PO SCH (09:39)
[2019-08-28 12:00] VITALS: BP 100/59
[2019-08-28] MEDS: INSULIN LISPRO SLIDING SCALE 100 UNITS/ML VIAL SUBQ PRN ×2 (12:00→17:39)
--- NOTE | 2019-08-28 12:00 | NUR ---
BLOOD SUGAR 258. COVERAGE GIVEN
[2019-08-28] MEDS ORDERED: LEVO750T2 PO (12:41)
[2019-08-28] MEDS ORDERED: XAR10 PO (12:41)
--- NOTE | 2019-08-28 14:10 | NUR ---
AWAKE, RESTING IN BED. NO APPARENT DISTRESS
[2019-08-28 16:00] VITALS: BP 105/65
--- NOTE | 2019-08-28 16:15 | NUR ---
PT WITH DISCHARGE ORDER. DISCHARGE INSTRUCTIONS GIVEN. PT VERBALIZED UNDERSTANDING.
--- NOTE | 2019-08-28 17:15 | NUR ---
BLOOD SUGAR 211. COVERAGE GIVEN
--- NOTE | 2019-08-28 18:15 | NUR ---
REMOVED IV WITH LUMEN INTACT. REMOVED ID BAND. TELE MONITOR REMOVED. ASSISTED PT TO CHANGE CLOTHES. AWAITING DAUGHTER TO UPSETTER HELPER PT
--- NOTE | 2019-08-28 18:35 | NUR ---
ASSISTED PT TO FRONT LOBBY. PICKED UP BY DAUGHTER. DISCHARGE INSTRUCTIONS GIVEN TO DAUGHTER
== END 2019-08-28 18:30 | disposition home health service (06) | DRG 871 ==
LOC: EEVIPCON 19:30 → MED 19:30 → MTU 23:30
PROVIDERS: ADMIT General Practice; ATTEND General Practice
DX: A41.51 Sepsis due to Escherichia coli [E. coli] (principal); N17.0 Acute kidney failure with tubular necrosis; I50.43 Acute on chronic combined systolic (congestive) and diastolic (congestive) heart failure; E43 Unspecified severe protein-calorie malnutrition; J18.9 Pneumonia, unspecified organism; E87.1 Hypo-osmolality and hyponatremia; I13.0 Hypertensive heart and chronic kidney disease with heart failure and stage 1 through stage 4 chronic kidney disease, or unspecified chronic kidney disease; I42.9 Cardiomyopathy, unspecified; N39.0 Urinary tract infection, site not specified; J98.11 Atelectasis; I48.20 Chronic atrial fibrillation, unspecified; E83.42 Hypomagnesemia; E03.9 Hypothyroidism, unspecified; E11.22 Type 2 diabetes mellitus with diabetic chronic kidney disease; E78.5 Hyperlipidemia, unspecified; K74.60 Unspecified cirrhosis of liver; N18.9 Chronic kidney disease, unspecified; G89.29 Other chronic pain; D64.9 Anemia, unspecified; D69.6 Thrombocytopenia, unspecified; D63.8 Anemia in other chronic diseases classified elsewhere; E87.6 Hypokalemia; K56.41 Fecal impaction; K76.0 Fatty (change of) liver, not elsewhere classified; Z68.25 Body mass index [BMI] 25.0-25.9, adult; Z87.891 Personal history of nicotine dependence; Z03.818 Encounter for observation for suspected exposure to other biological agents ruled out
CPT/HCPCS: 36415; 71045; 74018; 76705; 80048; 80053; 81001; 82550; 82553; 82728; 82948; 83036; 83605; 83615; 83690; 83735; 83880; 84100; 84443; 84484; 85025; 85379; 85384; 85610; 85651; 85730; 86140; 86704; 86706; 86708; 86709; 86803; 87040; 87081; 87086; 87186; 87340; 87804; 93005; 96365; 96375; 97112; 97116; 97161-GP; 99285; J0696; J1940; J2185; J2270; J3475; J7030; J7060; Q0092; U0003-CS

== ENCOUNTER 2019-10-06 06:51 | Day surgery (SDC) | payer OTHER, SELFPAY ==
[~2019-10-06] VITALS: Ht 170.2 cm; Wt 72.6 kg
[~2019-10-06 06:51] MED LIST changes: -CEPH250C16 PO; +LEVO750T2 PO; -MULT-153 PO; +MULT-2112 PO; -RIVA20TA PO; +XAR10 PO
[2019-10-06] MEDS ORDERED: MIDAZOLAM 2 MG/2 ML VIAL ONE (08:33)
[2019-10-06] MEDS ORDERED: fentaNYL 0.05 MG/ML VIAL ONE (08:34)
[2019-10-06] MEDS ORDERED: LIDOCAINE 2% 100 MG/5 ML UJET TP ONE (08:36)
[2019-10-06] MEDS ORDERED: fentaNYL 0.05 MG/ML VIAL IVP ONE (10:10)
[2019-10-06] MEDS ORDERED: MIDAZOLAM 2 MG/2 ML VIAL IVP ONE (10:10)
== END 2019-10-06 10:25 | disposition home or self-care (01) ==
LOC: MDS 06:51 → MMU 06:53 → MDS 10:25
PROVIDERS: ATTEND Internal Medicine Gastroenterology
DX: R19.5 Other fecal abnormalities (principal); Z11.59 Encounter for screening for other viral diseases; K57.30 Diverticulosis of large intestine without perforation or abscess without bleeding; D12.5 Benign neoplasm of sigmoid colon; K64.8 Other hemorrhoids; K29.60 Other gastritis without bleeding; I10 Essential (primary) hypertension; E11.9 Type 2 diabetes mellitus without complications; E78.00 Pure hypercholesterolemia, unspecified; Z79.2 Long term (current) use of antibiotics; Z79.899 Other long term (current) drug therapy; Z79.01 Long term (current) use of anticoagulants; Z79.82 Long term (current) use of aspirin; Z98.890 Other specified postprocedural states; Z79.84 Long term (current) use of oral hypoglycemic drugs; Z87.891 Personal history of nicotine dependence
CPT/HCPCS: 36415; 43239; 45385; 86677; J2250; J3010; U0003

== ENCOUNTER 2020-05-16 15:27 | Inpatient (IN) | payer OTHER, SELFPAY ==
[~2020-05-16] VITALS: Ht 165.1 cm; Wt 61.7 kg
--- NOTE | 2020-05-16 00:30 | NUR ---
NO RESPONSE YET FROM DR. WILD. MESSAGED HIM AGAIN ASKING HIM TO TAKE TAKE TO A LOOK AT THE MEDICATIONS THAT NEEDED CLARIFYING FROM THE PHARMACY. WILL WAIT FOR RESPONSE.
[2020-05-16 15:58] VITALS: BP 112/64
--- NOTE | 2020-05-16 16:01 | NUR ---
CAME IN ER THIS 74 YEAR OLD MALE PER WHEELCHAIR FROM HOME,AWAKE ALERT, ORIENTEDX4, BREATHING SPONTANEOUSLY AT ROOM AIR, NON LABORED NOTED, BILATERAL CHEST CLEAR, SKIN WARM TO TOUCH, WITH BILATERAL LOWER EXTREMITIES PITTING EDEMA +2 NOTED. WITH COMPLAINTS OF SHORTNESS OF BREATHE FOR 5DAYS AND WORSENED TODAY. KNOWN WITH HTN, CHF, ATRIAL FIBRILLATION, DM ON MEDICATION. SAFETY MESAURES IN PLACE AND CONTINUE MONITOR
--- NOTE | 2020-05-16 17:01 | NUR ---
SEEN AND EXAMINED BY DR. GEORGE, ER ATTENDING, ORDERS CARRIED OUT
--- NOTE | 2020-05-16 17:20 | NUR ---
URINE SAMPLE COLLECTED, COVID OLMAN AND PCR TEST DONE, SENT TO LAB
[2020-05-16] MEDS ORDERED: FUROSEMIDE 40 MG/4 ML VIAL IVP ONE (17:45)
--- NOTE | 2020-05-16 17:54 | NUR ---
CHEST XRAY DONE AT BEDSIDE
[2020-05-16 17:56] LABS: BASOPHILS # (AUTO) 0.1 K/uL (0.00-0.22); BASOPHILS % (AUTO) 1.3 % (0.0-2.0); EOSINOPHILS # (AUTO) 0.1 K/uL (0-0.4); EOSINOPHILS % (AUTO) 1.3 % (0.0-4.0); HEMOGLOBIN 12.6 g/dL (12.0-18.0); LYMPHOCYTES # (AUTO) 2.7 K/uL (2.0-11.5); LYMPHOCYTES % (AUTO) 31.3 % (20.5-51.1); MEAN CORPUSCULAR HEMOGLOBIN 31 pg (27-31); MEAN CORPUSCULAR HGB CONC 33 g/dL (33-37); MEAN CORPUSCULAR VOLUME 93.6 fL (80-94); MONOCYTES # (AUTO) 0.7 K/uL (0.8-1.0); NEUTROPHILS # (AUTO) 5.1 K/uL (1.8-7.7); NEUTROPHILS % (AUTO) 58.1 % (42.2-75.2); PLATELET COUNT (AUTO) 99 K/uL (140-450); RED BLOOD CELL COUNT(AUTO) 4.06 MIL/uL (4.20-6.10); RED CELL DISTRIBUTION WIDTH 16.2 % (11.6-13.7); WHITE BLOOD COUNT (AUTO) 8.8 K/uL (4.8-10.8)
[2020-05-16 17:57] LABS: APPEARANCE,URINE CLEAR (CLEAR); BILIRUBIN,URINE NEGATIVE (NEGATIVE); BLOOD, URINE NEGATIVE (NEGATIVE); COLOR,URINE YELLOW (YELLOW); LEUKOCYTE ESTERASE ,URINE NEGATIVE (NEGATIVE); NITRITE, URINE NEGATIVE (NEGATIVE); UGLUCOSE NEGATIVE (NEGATIVE)
[2020-05-16 18:01] LABS: C-REACTIVE PROTEIN QUANT 1.1 mg/dL (0.0-0.9)
[2020-05-16 18:07] LABS: PROTHROMBIN TIME 13.9 secs (10.8-13.4)
[2020-05-16 18:08] LABS: ALBUMIN 2.2 g/dL (3.4-5.0); ANION GAP 9.6 (8-16); ASPARTATE AMINOTRANSFERASE 30 U/L (15-37); CARBON DIOXIDE 31.5 mmol/L (21-32); CHLORIDE 106 mmol/L (98-107); GLUCOSE 95 mg/dL (74-106); POTASSIUM 5.1 mmol/L (3.5-5.1); SODIUM SERUM 142 mmol/L (136-145); TOTAL BILIRUBIN 0.8 mg/dL (0.0-1.0); UREA NITROGEN, BLOOD 28 mg/dL (7-18)
[2020-05-16] MEDS ORDERED: AZITHROMYCIN 500 MG in DEXTROSE 5% 250 ML IV ONE (18:15)
[2020-05-16] MEDS ORDERED: DEXAMETHASONE 10 MG/ML VIAL IVP ONE (18:15)
[2020-05-16] MEDS ORDERED: AZITHROMYCIN 500 MG INJ VIAL IV ONE (18:17)
--- NOTE | 2020-05-16 18:30 | NUR ---
VOIDED FREELY IN URINAL, ASSISTED WELL, 300ML NOTED
[2020-05-16] MEDS ORDERED: RIVA20TA PO (18:53)
[2020-05-16] MEDS ORDERED: HYDR-1098 PO (18:53)
--- NOTE | 2020-05-16 18:54 | NUR ---
SPOKE TO PATIENT'S DAUGHTER, OBTAINED MED REC FROM HER. DAUGHTER EXPRESSES THAT PCP WOULD LIKE TO HAVE CTA OF BILATERAL LOWER EXTREMITIES.
--- NOTE | 2020-05-16 19:24 | NUR ---
REPORT RECEIVED FROM ROXI MOHR FOR CONTINUITY OF CARE
--- NOTE | 2020-05-16 19:24 | NUR ---
ENDORSED TO CYCLE TOURING GUIDE IN STABLE CONDITION FOR CONTINUITY OF CARE
--- NOTE | 2020-05-16 20:30 | NUR ---
RECEIVED REPORT OVER THE PHONE FOR CONTINUITY OF CARE FROM ER NURSECHIVO.
[2020-05-16] MEDS ORDERED: ONDANSETRON 4 MG/2 ML VIAL IM/IVP PRN (20:35)
[2020-05-16] MEDS ORDERED: DOCUSATE SODIUM 100 MG GELCAP PO PRN (20:35)
[2020-05-16] MEDS ORDERED: ZOLPIDEM 5 MG TAB PO PRN (20:35)
[2020-05-16] MEDS ORDERED: ACETAMINOPHEN 325 MG TAB PO PRN (20:35)
[2020-05-16] MEDS ORDERED: guaiFENesin DM 200/20 MG-10 ML 10 ML UDC PO PRN (20:35)
[2020-05-16] MEDS ORDERED: POTASSIUM CHLORIDE 10 MEQ TABER PO PRN (20:35)
[2020-05-16] MEDS ORDERED: HYDROcodone/APAP 7.5/325 MG 1 TAB PO PRN (20:35)
[2020-05-16 20:40] VITALS: BP 116/70
[2020-05-16] MEDS ORDERED: ALBUTEROL HFA MDI 90 MCG/ACTUATION 8 GM INH PRN (20:40)
--- NOTE | 2020-05-16 20:40 | NUR ---
PT ARRIVED ON UNIT ACCOMPANIED BY ER NURSE, CHIVO, AND ANDREW. PT WAS TRANSFERRED FROM [facility] TO BED. PT IS AWAKE AND ALERT, SPEAKS BOTH YI AND SINGAPOREAN. A&OX4. SR ON TELE MONITOR. ON RA WITH BREATHING UNLABORED. NO RESPIRATORY DISTRESS NOTED. AMBULATORY WITH A CANE. PITTING EDEMA IN THE LOWER EXTREMITIES BILATERALLY, +2. SKIN IS WARM, DRY, AND INTACT. IV IS IN THE LEFT AC 18 GAUGE SALINE LOCKED. PT IS STABLE AT THIS TIME. NO COUGHING NOTED. COVID POSITIVE WITH DROPLET PRECAUTIONS IN PLACE. FALL PRECAUTIONS IN PLACE. WILL CONTINUE TO MONITOR.
--- NOTE | 2020-05-16 20:45 | NUR ---
Patient will be admitted to care of DR WILD. Admited to TELEMETRY. Will go to room 113. Belongings list completed. Report to NORBERTO MOHR.
[2020-05-16] MEDS ORDERED: ASPIRIN 325 MG TAB PO SCH (21:00)
[2020-05-16] MEDS ORDERED: LOVENOX 1MG/KG Q12H SUBQ SCH (21:00)
[2020-05-16] MEDS: METOPROLOL 25 MG TAB PO SCH (21:00)
[2020-05-16] MEDS: hydrALAZINE 25 MG TAB PO SCH (21:00)
[2020-05-16 21:19] LABS: CHOL/HDL RATIO 3.3 (1-4.5); FREE T4 (FREE THYROXINE) 0.27 ng/dL (0.76-1.46); MAGNESIUM 1.5 mg/dL (1.8-2.4); PHOSPHORUS 3.3 mg/dL (2.5-4.9); THYROID STIMULATING HORMONE 134.87 uIU/mL (0.34-3.74)
[2020-05-16 21:34] LABS: BARBITURATE, URINE NEGATIVE ng/ml (NEG <=200); BENZODIAZEPINE, URINE NEGATIVE ng/mL (NEG <=200); CANNABINOID, URINE NEGATIVE ng/mL (NEG <=50); COCAINE, URINE NEGATIVE ng/mL (NEG <=300); OPIATE, URINE NEGATIVE ng/mL (NEG <=2000); PHENCYCLIDINE SCREEN,URINE NEGATIVE ng/mL (NEG <=25)
--- NOTE | 2020-05-16 22:30 | NUR ---
PT IS STABLE AT THIS TIME. BREATHING IS UNLABORED. BLANKETS WERE PROVIDED FOR COMFORT, ALONG WITH FOOD FOR DINNER. PT IS CONTENT. NEEDS HAVE BEEN MET. BED IS IN THE LOWEST POSITION AND CALL LIGHT IS WITHIN REACH.
--- NOTE | 2020-05-16 22:58 | NUR ---
SPOKE TO [facility] AND THEY NEEDED CLARIFICATION ON A FEW ORDERS BEFORE THEY COULD VERIFY THE MEDICATION. THE PHARMACIST WANTED ME TO ASK DR. WILD IS HE WANTS 325 MG OF ASPIRIN OR 81 MG. ALSO IF HE INTENDED TO ORDER BOTH THE FUROSEMIDE 40 MG IVP AND 40 MG PO BID. AND IF HE WANTED TO CHANGE THE LOVENOX TO DAILY INSTEAD OF BID DUE TO THE PT'S POOR RENAL FUNCTION. TEXTED DR. WILD ALL OF THESE QUESTIONS AND WILL WAIT FOR A RESPONSE.
[2020-05-16] MEDS: AMIODARONE 200 MG TAB PO SCH (23:27)
[2020-05-16] MEDS: FUROSEMIDE 40 MG TAB PO SCH (23:28)
[2020-05-17] VITALS: BP 113/76
--- NOTE | 2020-05-17 00:30 | NUR ---
ROUNDED ON PT. HE IS BREATHING REGULARLY AND UNLABORED. NO RESPIRATORY DISTRESS NOTED. NO COUGHING OR PAIN AT THIS TIME. WATCHING TV IN BED CURRENTLY. WATER AND CELL PHONE WITHIN REACH. PT IS STABLE.
--- NOTE | 2020-05-17 01:50 | NUR ---
SPOKE TO [facility] AGAIN AND ASKED THEM TO VERIFY THE FIRST DOSE OF THESE MEDICATIONS AND WILL WAIT FOR RESPONSE FROM DR. WILD ON THE FREQUENCY OF DOSING. [facility] PHARMACIST SAID THEY WILL VERIFY OR CALL BACK IF THERE IS AN ISSUE WITH THIS PROCESS.
--- NOTE | 2020-05-17 02:07 | NUR ---
PT IS ASLEEP IN SEMI FOWLERS POSITION. CHEST RISE AND FALL IS SYMMETRICAL. ON RA WITH BREATHING UNLABORED. IV IS INTACT. PT IS STABLE. NO DISTRESS NOTED.
--- NOTE | 2020-05-17 02:17 | NUR ---
OSWALD FROM [facility] CALLED BACK. HE SAID HE AUTOMATICALLY WILL CHANGE THE LOVENOX PER PROTOCOL TO 1MG/KG Q 24 HOURS PER [facility] POLICY. STILL WANTS INFORMATION ON THE ASPIRIN AND LASIX WHEN THE DOCTOR CLARIFIES THE MEDICATION. OSWALD, PHARMACIST, SAYS IT WILL TAKE A COUPLE MINUTES BEFORE THE LOVENOX IS VERIFIED.
[2020-05-17] MEDS ORDERED: ENOXAPARIN 60 MG/0.6 ML SYR SUBQ SCH (02:25)
--- NOTE | 2020-05-17 02:25 | NUR ---
LOVENOX WAS JUST VERIFIED. WILL ADMINISTER SHORTLY.
--- NOTE | 2020-05-17 02:47 | NUR ---
LOVENOX WAS GIVEN ORDERED FOR DDIMER OF 4620, PT 13.9, INR 1.41, AND PLT 99. Addendum: 05/17/20 at 0248 by Griselda Roberson RN THIS MEDICATION WAS DISCUSSED AND VERIFIED BY JENARO PINEDA.
[2020-05-17 04:00] VITALS: BP 109/66
--- NOTE | 2020-05-17 04:40 | NUR ---
MADE ROUNDS ON PT. HE WAS EASILY AWOKEN BY NOISE AND ASKED FOR ASSISTANCE WITH THE URINAL. PT VOIDED; CLEAR, YELLOW URINE. NO DISTRESS NOTED OR SOB. PT IS ON RA WITH BREATHING UNLABORED. BED IS IN THE LOWEST POSITION. IV IS SALINE LOCKED. WILL CONTINUE TO MONITOR.
[2020-05-17 06:20] LABS: BASOPHILS % (AUTO) 0.4 % (0.0-2.0); HEMATOCRIT 37.1 % (36-52); HEMOGLOBIN 12.5 g/dL (12.0-18.0); LYMPHOCYTES # (AUTO) 1.2 K/uL (2.0-11.5); LYMPHOCYTES % (AUTO) 18.1 % (20.5-51.1); MEAN CORPUSCULAR HEMOGLOBIN 31 pg (27-31); MEAN CORPUSCULAR HGB CONC 34 g/dL (33-37); MEAN CORPUSCULAR VOLUME 92.3 fL (80-94); MONOCYTES # (AUTO) 0.1 K/uL (0.8-1.0); MONOCYTES % (AUTO) 1.7 % (1.7-9.3); NEUTROPHILS # (AUTO) 5.3 K/uL (1.8-7.7); NEUTROPHILS % (AUTO) 79.8 % (42.2-75.2); PLATELET COUNT (AUTO) 100 K/uL (140-450); RED BLOOD CELL COUNT(AUTO) 4.02 MIL/uL (4.20-6.10); RED CELL DISTRIBUTION WIDTH 16.1 % (11.6-13.7); WHITE BLOOD COUNT (AUTO) 6.7 K/uL (4.8-10.8)
--- NOTE | 2020-05-17 06:30 | NUR ---
PT IS AWAKE AND STABLE. PT DENIES ANY CHEST PAIN OR SOB. ON RA WITH BREATHING UNLABORED. CALL LIGHT IS WITHIN REACH. URINAL WAS EMPTIED. WILL CONTINUE TO MONITOR.
--- NOTE | 2020-05-17 06:45 | NUR ---
DR. WILD MESSAGED BACK TO GIVEHASIX ORDERED; 40 MG PO BID, 40 MG IVP BID. ALSO SAID TO SWITCH LOVENOX TO HEPARIN 5,000 UNITS BID SUBQ. CALLED [facility] AND RELAYED MESSAGED TO OSWALD. ORDERS ARE IN AND SCHEDULED FOR 0900. Addendum: 05/17/20 at 0712 by Griselda Roberson RN GIVE LASIX
[2020-05-17] MEDS: ASPIRIN 81 MG TAB.CHEW PO SCH ×2 (06:48→21:55)
[2020-05-17] MEDS: LEVOTHYROXINE 0.075 MG TAB PO SCH (06:51)
[2020-05-17 07:04] LABS: ASPARTATE AMINOTRANSFERASE 23 U/L (15-37); CARBON DIOXIDE 30.4 mmol/L (21-32); CHLORIDE 103 mmol/L (98-107); GLUCOSE 192 mg/dL (74-106); LACTATE DEHYDROGENASE 188 U/L (85-227); POTASSIUM 4.4 mmol/L (3.5-5.1); SODIUM SERUM 145 mmol/L (136-145); TOTAL BILIRUBIN 0.7 mg/dL (0.0-1.0); UREA NITROGEN, BLOOD 30 mg/dL (7-18)
[2020-05-17] MEDS: FUROSEMIDE 100 MG/10 ML VIAL IV SCH ×3 (07:32→21:57)
--- NOTE | 2020-05-17 07:34 | NUR ---
LASIX 40 MG IVP AND ASPIRIN 81 MG WAS NOT GIVEN BECAUSE IT IS CLOSE TO THE TIME FOR THE NEXT SCHEDULED DOSE. IT WAS JUST VERIFIED BY THE DOCTOR AND PHARMACY. ENDORSED TO DAY SHIFT SINCE THE SCHEDULED DOSE IS AT 0900 AM.
--- NOTE | 2020-05-17 07:40 | NUR ---
ENDORSED PT TO DAY SHIFT NURSE FOR CONTINUITY OF CARE. PT IS STABLE AT THIS TIME. PLAN OF CARE DISCUSSED.
--- NOTE | 2020-05-17 07:45 | NUR ---
RECEIVED BEDSIDE REPORT FROM CURTAIN FITTER NURSE. PT IS AWAKE AND ALERT, SPEAKS BOTH WELSH AND GERMAN. A&OX4. RESPIRATION EVEN AND UNLABORED. ON RA SATING AT 99%. NO RESPIRATORY DISTRESS NOTED. AMBULATORY WITH A CANE. +2 PITTING EDEMA IN THE LOWER EXTREMITIES BILATERALLY. SKIN IS WARM AND DRY. IV SITE ON LAC 18 GAUGE, SALINE LOCKED. INTACT AND PATENT. PLAN OF CARE DISCUSSED. COVID POSITIVE WITH DROPLET PRECAUTION AND FALL PRECAUTIONS IN PLACE. CALL LIGHT WITHIN REACH. WILL CONTINUE TO MONITOR.
[2020-05-17 08:00] VITALS: BP 109/56
[2020-05-17] MEDS: ASCORBIC ACID 500 MG TAB PO SCH (08:38)
[2020-05-17] MEDS: FOLIC ACID 1 MG TAB PO SCH (08:39)
[2020-05-17] MEDS: PANTOPRAZOLE 40 MG TABEC PO SCH (08:39)
[2020-05-17] MEDS: ZINC SULF 220 MG CAP PO SCH (08:39)
[2020-05-17] MEDS: FERROUS SULFATE 325 MG TABEC PO SCH (08:40)
[2020-05-17] MEDS: ATORVASTATIN 20 MG TAB PO SCH (08:49)
[2020-05-17] MEDS: hydrALAZINE 25 MG TAB PO SCH ×2 (08:54→21:55)
[2020-05-17] MEDS ORDERED: AZITHROMYCIN 250 MG TAB PO SCH (09:00)
[2020-05-17] MEDS ORDERED: RIVAROXABAN 10 MG TAB PO SCH (09:00)
[2020-05-17] MEDS: METOPROLOL 25 MG TAB PO SCH ×2 (09:00→21:54)
[2020-05-17] MEDS ORDERED: COMMUNICATION ORDER MC SCH (09:00)
[2020-05-17] MEDS: FUROSEMIDE 40 MG TAB PO SCH ×2 (09:00→21:55)
--- NOTE | 2020-05-17 09:00 | NUR ---
ALL SCHEDULED MEDS GIVEN. PT IS STABLE. NO RESPIRATORY DISTRESS NOTED. WILL CONTINUE TO MONITOR.
--- NOTE | 2020-05-17 09:03 | NUR ---
PATIENT HAS BEEN SCREENED AND CATEGORIZED MODERATE NUTRITION RISK. PATIENT WILL BE SEEN WITHIN 3-5 DAYS OF ADMISSION. 05/19/20 05/21/[address]
[2020-05-17] MEDS ORDERED: remdesivir CLINICAL MONITORING 1 EA MISC MC PRN (11:10)
--- NOTE | 2020-05-17 11:49 | NUR ---
SOCIAL WORK NOTE: Patient's Orientation Unable To Assess Information Provided By RAEHUI FORMAN - DAUGHTER Comments SW WAS UNABLE TO MEET PATIENT AT BEDSIDE. SW COMPLETED ASSESSMENT WITH PATIENT'S DAUGHTER. Radiology Specialist, Realtionship and Phone Number RAE FORMAN DAUGHTER [phone] [facility] Power of Bus Boy No Does Patient Have a POLST No Identifying Problems No Social Work Triggers Is A Social Work Consult Needed No Mandate Report Filed No Explanation Of Identifying Problems PATIENT IS A 74-YEAR-OLD MALE ADMITTED FOR CHF. PATIENT HAS PMHX OF AFIB, DIABETES, AND HYPERTENSION. Admitted From Home Pre-Admission Level Of Functioning Status Independent With DME Prior Resources/Services Used In Last 12 Months No Prior Resources Used Prior DME Cane Walker Dialysis Comments N/A Living Situation Lives With Family Condo Patient Had Caregiver No Home Support No Caregiver Issues Financial Issues No Known Financial Issue Referral To The Financial Counselor Needed No Factors/Needs No D/C Needs Identified Pt/Rep Participated In Discharge Plan Yes Patient/Family Agress With Discharge Plan Yes Discharge Plan Comments TENTATIVE DISCHARGE PLAN IS FOR PATIENT TO RETURN HOME. DC Plan Status Initiated
[2020-05-17 12:00] VITALS: BP 103/59
[2020-05-17] MEDS ORDERED: REMDESIVIR (EUA) 200 MG in NACL 0.9% 100 ML IV SCH (12:00)
--- NOTE | 2020-05-17 13:00 | NUR ---
CHECKED ON PATIENT. PATIENT IS STABLE. NO DISTRESS NOTED. WILL CONTINUE TO MONITOR.
--- NOTE | 2020-05-17 15:00 | NUR ---
CHECKED ON PATIENT. PATIENT IS STABLE. NO RESPIRATORY DISTRESS NOTED. WILL CONTINUE TO MONITOR
[2020-05-17 16:00] VITALS: BP 101/48
--- NOTE | 2020-05-17 18:40 | NUR ---
ALL SCHEDULED MEDS GIVEN. PT IS STABLE. NO DISTRESS NOTED. WILL CONTINUE TO MONITOR.
--- NOTE | 2020-05-17 19:00 | NUR ---
PATIENT RECEIVED IN BED AWAKE, ALERT AND ORIENTED X 4. A&OX4. BILINGUAL. ACYANOTIC. RESPIRATION EVEN AND NONLABORED ON RA SATING AT 98%. NO RESPIRATORY DISTRESS NOTED. AMBULATORY WITH A CANE. +2 PITTING EDEMA IN THE LOWER EXTREMITIES BILATERALLY. SKIN IS WARM AND DRY. IV SITE ON LAC 18 GAUGE, SALINE LOCKED. INTACT AND PATENT. COVID POSITIVE WITH DROPLET PRECAUTION. FALL PRECAUTIONS ONGOING. DISCUSSED FALL AND SAFETY PRECAUTIONARY MEASURES, MEDICATION REGIMEN AND RN PLAN OF CARE. COVID PRECAUTIONS ONGOING. BED IN LOW POSITION, CALL LIGHT WITHIN REACH. NO ACUTE DISTRESS NOTED.WILL CONTINUE TO MONITOR.
--- NOTE | 2020-05-17 19:30 | NUR ---
ENDORSED TO FLOORS BUFFER NURSE FOR CONTINUITY OF CARE. PT IS STABLE.
[2020-05-17 20:00] VITALS: BP 116/58
[2020-05-17] MEDS: AMIODARONE 200 MG TAB PO SCH (21:55)
[2020-05-18] VITALS: BP 118/60
--- NOTE | 2020-05-18 | NUR ---
PATIENT SLEEPING DURING ROUNDING, EASILY AROUSED. FALL AND SAFETY PRECAUTIONARY MEASURES ONGOING. NO ACUTE DISTRESS NOTED.
[2020-05-18 04:00] VITALS: BP 114/56
[2020-05-18] MEDS: LEVOTHYROXINE 0.075 MG TAB PO SCH (05:16)
--- NOTE | 2020-05-18 07:30 | NUR ---
RECEIVED BEDSIDE REPORT FROM BUSINESS OPERATIONS COORDINATOR NURSE. PT IS AWAKE AND ALERT, SPEAKS BOTH THAI AND OCCITAN. A&OX4. RESPIRATION EVEN AND UNLABORED. ON RA SATING AT 99%. NO RESPIRATORY DISTRESS NOTED. AMBULATORY WITH A CANE. +2 PITTING EDEMA IN THE LOWER EXTREMITIES BILATERALLY. SKIN IS WARM AND DRY. IV SITE ON LAC 18 GAUGE, SALINE LOCKED. INTACT AND PATENT. PLAN OF CARE DISCUSSED. COVID POSITIVE WITH DROPLET PRECAUTION AND FALL PRECAUTIONS IN PLACE. CALL LIGHT WITHIN REACH. WILL CONTINUE TO MONITOR.
[2020-05-18 07:45] LABS: BASOPHILS % (AUTO) 0.1 % (0.0-2.0); HEMATOCRIT 41.7 % (36-52); HEMOGLOBIN 13.7 g/dL (12.0-18.0); LYMPHOCYTES # (AUTO) 1.4 K/uL (2.0-11.5); LYMPHOCYTES % (AUTO) 11.2 % (20.5-51.1); MEAN CORPUSCULAR HEMOGLOBIN 31 pg (27-31); MEAN CORPUSCULAR HGB CONC 33 g/dL (33-37); MEAN CORPUSCULAR VOLUME 93.3 fL (80-94); MONOCYTES # (AUTO) 0.6 K/uL (0.8-1.0); MONOCYTES % (AUTO) 4.9 % (1.7-9.3); NEUTROPHILS # (AUTO) 10.5 K/uL (1.8-7.7); NEUTROPHILS % (AUTO) 83.8 % (42.2-75.2); PLATELET COUNT (AUTO) 125 K/uL (140-450); RED BLOOD CELL COUNT(AUTO) 4.47 MIL/uL (4.20-6.10); RED CELL DISTRIBUTION WIDTH 16.1 % (11.6-13.7); WHITE BLOOD COUNT (AUTO) 12.5 K/uL (4.8-10.8)
[2020-05-18 07:57] LABS: ALBUMIN 2.3 g/dL (3.4-5.0); ANION GAP 10.3 (8-16); ASPARTATE AMINOTRANSFERASE 20 U/L (15-37); CHLORIDE 103 mmol/L (98-107); GLUCOSE 184 mg/dL (74-106); LACTATE DEHYDROGENASE 196 U/L (85-227); POTASSIUM 5.3 mmol/L (3.5-5.1); SODIUM SERUM 139 mmol/L (136-145); TOTAL BILIRUBIN 0.6 mg/dL (0.0-1.0); UREA NITROGEN, BLOOD 31 mg/dL (7-18)
[2020-05-18 08:00] VITALS: BP 115/68
[2020-05-18] MEDS: FOLIC ACID 1 MG TAB PO SCH (09:03)
[2020-05-18] MEDS: ZINC SULF 220 MG CAP PO SCH (09:03)
[2020-05-18] MEDS: ATORVASTATIN 20 MG TAB PO SCH (09:04)
[2020-05-18] MEDS: ASCORBIC ACID 500 MG TAB PO SCH (09:04)
[2020-05-18] MEDS: FERROUS SULFATE 325 MG TABEC PO SCH (09:04)
[2020-05-18] MEDS: PANTOPRAZOLE 40 MG TABEC PO SCH (09:04)
[2020-05-18] MEDS: METOPROLOL 25 MG TAB PO SCH ×2 (09:07→21:00)
[2020-05-18] MEDS: hydrALAZINE 25 MG TAB PO SCH ×2 (09:07→21:00)
--- NOTE | 2020-05-18 09:07 | NUR ---
ALL SCHEDULED MEDS GIVEN. PT IS STABLE NO DISTRESS NOTED. WILL CONTINUE TO MONITOR.
[2020-05-18] MEDS: FUROSEMIDE 100 MG/10 ML VIAL IV SCH ×2 (09:09→21:00)
[2020-05-18] MEDS: FUROSEMIDE 40 MG TAB PO SCH ×2 (09:28→21:00)
[2020-05-18 10:58] LABS: T4 (THYROXINE) 2.8 ug/dL (4.5 - 12.0)
[2020-05-18 12:00] VITALS: BP 105/60
[2020-05-18] MEDS ORDERED: REMDESIVIR (EUA) 100 MG in NACL 0.9% 100 ML IV SCH (12:00)
--- NOTE | 2020-05-18 12:00 | NUR ---
CHECKED ON PATIENT. PATIENT IS STABLE. NO DISTRESS NOTED. WILL CONTINUE TO MONITOR.
[2020-05-18] MEDS ORDERED: ALBUMIN HUMAN 25% 100 ML IV SCH (13:01)
--- NOTE | 2020-05-18 14:00 | NUR ---
CHECKED ON PATIENT. PATIENT IS STABLE. NO DISTRESS NOTED. WILL CONTINUE TO MONITOR.
--- NOTE | 2020-05-18 15:00 | NUR ---
IV SITE WAS LEAKING. CHANGED IV SITE ON THE RFA 18 G. INTACT AND PATENT.
[2020-05-18 16:00] VITALS: BP 116/65
--- NOTE | 2020-05-18 19:30 | NUR ---
Received handoff report from day nurse for continuity of care.
--- NOTE | 2020-05-18 19:38 | NUR ---
ENDORSED TO BUFFING MACHINE TENDER NURSE FOR CONTINUITY OF CARE. PT IS STABLE.
[2020-05-18 20:00] VITALS: BP 110/61
[2020-05-18] MEDS: ASPIRIN 81 MG TAB.CHEW PO SCH (23:14)
[2020-05-18] MEDS: AMIODARONE 200 MG TAB PO SCH (23:15)
[2020-05-19] VITALS: BP 100/49
[2020-05-19] MEDS: LEVOTHYROXINE 0.075 MG TAB PO SCH (06:56)
--- NOTE | 2020-05-19 07:30 | NUR ---
Endorsed day nurse for continuity of care.
--- NOTE | 2020-05-19 07:30 | NUR ---
RECEIVED BEDSIDE REPORT FROM STATISTICIAN THEORETICAL NURSE. PT IS AWAKE AND ALERT, SPEAKS BOTH PORTUGUESE AND TELUGU. A&OX4. RESPIRATION EVEN AND UNLABORED. ON RA SATING AT 100%. NO RESPIRATORY DISTRESS NOTED. AMBULATORY WITH A CANE. +2 PITTING EDEMA IN THE LOWER EXTREMITIES BILATERALLY. SKIN IS WARM AND DRY. IV SITE ON RFA 18 GAUGE, SALINE LOCKED. INTACT AND PATENT. PLAN OF CARE DISCUSSED. COVID POSITIVE WITH DROPLET PRECAUTION AND FALL PRECAUTIONS IN PLACE. CALL LIGHT WITHIN REACH. WILL CONTINUE TO MONITOR.
[2020-05-19 07:35] LABS: BASOPHILS % (AUTO) 0.1 % (0.0-2.0); EOSINOPHILS # (AUTO) 0.1 K/uL (0-0.4); EOSINOPHILS % (AUTO) 0.4 % (0.0-4.0); HEMATOCRIT 38.2 % (36-52); HEMOGLOBIN 12.5 g/dL (12.0-18.0); LYMPHOCYTES % (AUTO) 16.7 % (20.5-51.1); MEAN CORPUSCULAR HEMOGLOBIN 31 pg (27-31); MEAN CORPUSCULAR HGB CONC 33 g/dL (33-37); MEAN CORPUSCULAR VOLUME 93.4 fL (80-94); NEUTROPHILS # (AUTO) 8.9 K/uL (1.8-7.7); NEUTROPHILS % (AUTO) 74.8 % (42.2-75.2); PLATELET COUNT (AUTO) 128 K/uL (140-450); RED BLOOD CELL COUNT(AUTO) 4.09 MIL/uL (4.20-6.10); RED CELL DISTRIBUTION WIDTH 16.5 % (11.6-13.7); WHITE BLOOD COUNT (AUTO) 11.9 K/uL (4.8-10.8)
[2020-05-19 07:51] LABS: ALBUMIN 2.4 g/dL (3.4-5.0); ANION GAP 7.7 (8-16); ASPARTATE AMINOTRANSFERASE 19 U/L (15-37); CARBON DIOXIDE 32.7 mmol/L (21-32); CHLORIDE 102 mmol/L (98-107); CREATININE 1.9 mg/dL (0.6-1.3); GLUCOSE 111 mg/dL (74-106); LACTATE DEHYDROGENASE 172 U/L (85-227); POTASSIUM 4.4 mmol/L (3.5-5.1); SODIUM SERUM 138 mmol/L (136-145); TOTAL BILIRUBIN 0.6 mg/dL (0.0-1.0); UREA NITROGEN, BLOOD 34 mg/dL (7-18)
[2020-05-19 08:00] VITALS: BP 122/64
[2020-05-19] MEDS: FUROSEMIDE 100 MG/10 ML VIAL IV SCH ×2 (08:54→21:00)
[2020-05-19] MEDS: hydrALAZINE 25 MG TAB PO SCH ×2 (08:55→21:00)
[2020-05-19] MEDS: ATORVASTATIN 20 MG TAB PO SCH (08:55)
[2020-05-19] MEDS: FOLIC ACID 1 MG TAB PO SCH (08:55)
[2020-05-19] MEDS: METOPROLOL 25 MG TAB PO SCH ×2 (08:55→21:00)
[2020-05-19] MEDS: ZINC SULF 220 MG CAP PO SCH (08:56)
[2020-05-19] MEDS: PANTOPRAZOLE 40 MG TABEC PO SCH (08:56)
[2020-05-19] MEDS: ASCORBIC ACID 500 MG TAB PO SCH (08:56)
[2020-05-19] MEDS: FUROSEMIDE 40 MG TAB PO SCH ×2 (08:56→21:00)
[2020-05-19] MEDS: FERROUS SULFATE 325 MG TABEC PO SCH (08:56)
--- NOTE | 2020-05-19 09:00 | NUR ---
ALL SCHEDULED MEDS GIVEN. PT IS STABLE. NO DISTRESS NOTED. WILL CONTINUE TO MONITOR.
--- NOTE | 2020-05-19 11:30 | NUR ---
CHECKED ON PATIENT. PATIENT IS STABLE. NO SIGNS OF RESPIRATORY DISTRESS NOTED. WILL CONTINUE MONITOR.
[2020-05-19 12:00] VITALS: BP 121/71
--- NOTE | 2020-05-19 14:00 | NUR ---
CHECKED ON PATIENT. PATIENT IS CALM AND RELAXING IN BED. NO SIGNS OF RESPIRATORY DISTRESS NOTED. WILL CONTINUE MONITOR.
[2020-05-19 16:00] VITALS: BP 116/53
--- NOTE | 2020-05-19 17:15 | NUR ---
CHECKED ON PATIENT. PATIENT IS STABLE AND SLEEPING IN BED. NO SIGNS OF RESPIRATORY DISTRESS NOTED. WILL CONTINUE MONITOR.
--- NOTE | 2020-05-19 19:40 | NUR ---
ENDORSED TO SPINDLE TESTER NURSE FOR CONTINUITY OF CARE. PT IS STABLE.
--- NOTE | 2020-05-19 19:40 | NUR ---
RECEIVED PT . AAOX4 , NID - PER AM NURSE PT IS ON RA - O2 SAT WNL . REVIEWED DR'S ORDER THERE IS AN ORDER OF O2 AT 2LPM/ NC - WILL PROVIDE O2 PER NC ORDERED - CXR RESULT REMARKABLE - LUNGS SOUNDS - AUSCULTATE - THERE IS SOME DIMINISHED . NO COMPLAIN MADE , DENIES PAIN . IV SITE INTACT AND PATENT . ON TELE MONITOR - SB W/ ST DEP . SAFETY MEASURES IN PLACE - CALL LIGHT / URINAL WITHIN REACH . POC DISCUSSED AND VERBALIZE UNDERSTANDING . WILL CONT. TO MONITOR
--- NOTE | 2020-05-19 20:35 | NUR ---
CLARIFYING TO DR Bubba WILD ABOUT ASA , HEPARIN AT THE SAME TIME AND LASIX TIV , LASIX P.O AT THE SAME TIME . Addendum: 05/20/20 at 0143 by Candida Mac RN DR Bubba WILD RESPONDED TO MY TEXT MSG - PER DR TORRI GARCIA D/C LASIX TIV AFTER 6 DOSES . PROCEED THE ORIG. ORDER WITH REGARDS TO ASA AND HEPARIN - WILL CARRY OUT , WILL ENDORSE .
[2020-05-19] MEDS: AMIODARONE 200 MG TAB PO SCH (21:00)
--- NOTE | 2020-05-19 21:00 | NUR ---
DUE LASIX AND CARDIO DRUGS NOT GIVEN DUE TO LOW DBP AND LOW CR / TN - WILL CONT. TO MONITOR .
[2020-05-19 22:00] VITALS: BP 111/56
[2020-05-19] MEDS: ASPIRIN 81 MG TAB.CHEW PO SCH (22:53)
[2020-05-20] VITALS (8 sets, daily range): BP systolic 99–121; BP diastolic 51–64
--- NOTE | 2020-05-20 | NUR ---
MADE ROUNDS , NO S/SX ACUTE DISTRESS NOTED . CALL LOIGHT / URINAL WITHIN REACH . ON TELE MONITOR .
--- NOTE | 2020-05-20 02:00 | NUR ---
SLEEPING . ON TELE MONITORING
--- NOTE | 2020-05-20 04:00 | NUR ---
MADE ROUNDS , O2 SAT WNL . NO S/SX OF ACUTE DISTRESS NOTED .
--- NOTE | 2020-05-20 06:00 | NUR ---
NO COMPLAIN MADE .
[2020-05-20 06:29] LABS: BASOPHILS % (AUTO) 0.4 % (0.0-2.0); EOSINOPHILS # (AUTO) 0.3 K/uL (0-0.4); EOSINOPHILS % (AUTO) 3.2 % (0.0-4.0); HEMATOCRIT 35.6 % (36-52); LYMPHOCYTES % (AUTO) 22.5 % (20.5-51.1); MEAN CORPUSCULAR HEMOGLOBIN 31 pg (27-31); MEAN CORPUSCULAR HGB CONC 34 g/dL (33-37); MEAN CORPUSCULAR VOLUME 93.1 fL (80-94); MONOCYTES # (AUTO) 0.8 K/uL (0.8-1.0); MONOCYTES % (AUTO) 8.8 % (1.7-9.3); NEUTROPHILS # (AUTO) 5.9 K/uL (1.8-7.7); NEUTROPHILS % (AUTO) 65.1 % (42.2-75.2); PLATELET COUNT (AUTO) 117 K/uL (140-450); RED BLOOD CELL COUNT(AUTO) 3.82 MIL/uL (4.20-6.10); RED CELL DISTRIBUTION WIDTH 16.4 % (11.6-13.7); WHITE BLOOD COUNT (AUTO) 9.1 K/uL (4.8-10.8)
[2020-05-20] MEDS: LEVOTHYROXINE 0.075 MG TAB PO SCH (06:34)
[2020-05-20 07:06] LABS: ALBUMIN 2.1 g/dL (3.4-5.0); ANION GAP 4.2 (8-16); ASPARTATE AMINOTRANSFERASE 20 U/L (15-37); CARBON DIOXIDE 34.5 mmol/L (21-32); CHLORIDE 103 mmol/L (98-107); CREATININE 1.8 mg/dL (0.6-1.3); GLUCOSE 109 mg/dL (74-106); POTASSIUM 3.7 mmol/L (3.5-5.1); SODIUM SERUM 138 mmol/L (136-145); TOTAL BILIRUBIN 0.6 mg/dL (0.0-1.0); UREA NITROGEN, BLOOD 34 mg/dL (7-18)
--- NOTE | 2020-05-20 07:25 | NUR ---
RECEIVED ENDORSEMENT FROM MEDIUM CYCLE SALESPERSON NURSE FOR CONTINUATION PLAN OF CARE. PATIENT IS IN BED AOX4. ON 2L NASAL CANULA. STRICT I/O. BILATERAL LEG EDEMA. IV SITE IS IN PLACE AND INTACT. SAFETY MEASURES ARE IN PLACE. CALL LIGHT WITHIN REACH. WILL CONTINUE TO MONITOR NEEDED.
--- NOTE | 2020-05-20 07:37 | NUR ---
ENDORSED - PT - STABLE .
[2020-05-20] MEDS: ASCORBIC ACID 500 MG TAB PO SCH (08:56)
[2020-05-20] MEDS: PANTOPRAZOLE 40 MG TABEC PO SCH (08:57)
[2020-05-20] MEDS: ATORVASTATIN 20 MG TAB PO SCH (08:57)
[2020-05-20] MEDS: FUROSEMIDE 40 MG TAB PO SCH (08:57)
[2020-05-20] MEDS: ZINC SULF 220 MG CAP PO SCH (08:58)
[2020-05-20] MEDS: FERROUS SULFATE 325 MG TABEC PO SCH (08:58)
[2020-05-20] MEDS: FOLIC ACID 1 MG TAB PO SCH (08:58)
[2020-05-20] MEDS: FUROSEMIDE 100 MG/10 ML VIAL IV SCH (09:00)
[2020-05-20] MEDS: METOPROLOL 25 MG TAB PO SCH (09:00)
[2020-05-20] MEDS: hydrALAZINE 25 MG TAB PO SCH (09:00)
--- NOTE | 2020-05-20 09:15 | NUR ---
SCHEDULED MEDICATIONS GIVEN. NO DISTRESS NOTED. HOLDING BP MEDICATIONS AND FUROSEMIDE VIAL DUE TO BP 99/53.
--- NOTE | 2020-05-20 11:00 | NUR ---
RECEIVED ORDER TO DC PATIENT. PATIENT IS AWARE. DAUGHTER IS AWARE AND WILL MARINE DRILLER AFTER WORK AT 1830
[2020-05-20] MEDS ORDERED: AZIT250T3 PO (11:46)
[2020-05-20] MEDS ORDERED: LEVO0.155 PO (11:51)
--- NOTE | 2020-05-20 19:53 | NUR ---
ENDORSED TO CAPACITOR ASSEMBLER NURSE FOR CONTINUATION OF CARE. PATIENT IN STABLE CONDITION
--- NOTE | 2020-05-20 19:54 | NUR ---
RECEIVED AAOX4 , NID - O2 SAT WNL , PT IS SO MAD , IRRITATING BECAUSE HE SAID THE DOCTOR DISCHARGE HIM AT PAST 11AM , BUT STILL HE IS HERE , HE SAID HER DAUGHTER IS WAITED SO LONG FOR HIM TO FUSELAGE FRAMER HIM - BUT STILL THE DISCHARGE DOCUMENT STILL NOT YET DONE . AND ALSO HIS PANTS IS WET AND NO ONE ATTENDED HIM LIKE NO ONE GIVE HIM A URINAL HE ALREADY PEED ON HIS PANTS . THE MORNING NURSE STILL NOT YET PRINTED OUT THE DISCHARGE PAPERS AND IS TOO LATE HE ENDORSE TO ME ABOUT THE PT 'S DISCHARGE I- IT'S ALMOST 8PM WHEN I GOT THE REPORT FROM AM NURSE . I PROVIDE HIM A URINAL , BUT HE IS REFUSE TO CHANGE HIS WET PANTS . PER TRISH THE PT'S DAUGHTER WAITED TOO LONG IN THE LOBBY AND SHE LEFT ALREADY . PER TRISH CALL PT'S DAUGHTER ONCE PT. IS READY TO GO . WILL ANTICIPATE DISCHARGE NEEDS , DISCHARGE INSTRUCTIONS WILL BE DISCUSSED .
--- NOTE | 2020-05-20 20:10 | NUR ---
DISCHARGE INSTRUCTIONS DISCUSSED TO THE PT , PT . VERBALIZE UNDERSTANDING , ALL QUESTION AND CONCERN ANSWERED . DISCHARGE PACKET GIVEN TO THE PT . IV CANNULA REMOVED - NEEDLE INTACT AND COMPLETE , MIN. BLEEDING - PROCEDURE TOLERATED WELL . LEFT MESSAGE TO THE PT'S DAUGHTER . Addendum: 05/20/20 at 2241 by Candida Mac RN TELE BOX ALREADY REMOVED . JOSEPH CORDERO .
--- NOTE | 2020-05-20 20:42 | NUR ---
DISCHARGED IN STABLE CONDITION . SECURITY THREAT ANALYST BY PT'S DAUGHTER BY PRIVATE CARE . DISCHARGE INSTRUCTION - RE EMPHASIZED TO THE PT'S DAUGHTER - PT'S DAUGHTER VERBALIZE UNDERSTANDING . ALL QUESTION AND CONCERN ANSWERED .
== END 2020-05-20 20:40 | disposition home or self-care (01) | DRG 177 ==
LOC: MED 15:27 → EEVIPCON 15:27 → MTU 19:29
PROVIDERS: ADMIT Family Medicine; ATTEND Family Medicine
PROC: XW033E5 Introduction of Remdesivir Anti-infective into Peripheral Vein, Percutaneous Approach, New Technology Group 5 (ICD-10-PCS; principal; 2020-05-17)
DX: U07.1 COVID-19 (principal); J12.82 Pneumonia due to coronavirus disease 2019; E43 Unspecified severe protein-calorie malnutrition; I50.43 Acute on chronic combined systolic (congestive) and diastolic (congestive) heart failure; N17.0 Acute kidney failure with tubular necrosis; J96.01 Acute respiratory failure with hypoxia; J98.11 Atelectasis; I42.9 Cardiomyopathy, unspecified; I13.0 Hypertensive heart and chronic kidney disease with heart failure and stage 1 through stage 4 chronic kidney disease, or unspecified chronic kidney disease; I25.10 Atherosclerotic heart disease of native coronary artery without angina pectoris; F17.200 Nicotine dependence, unspecified, uncomplicated; E78.5 Hyperlipidemia, unspecified; I44.7 Left bundle-branch block, unspecified; E11.22 Type 2 diabetes mellitus with diabetic chronic kidney disease; E87.5 Hyperkalemia; E03.9 Hypothyroidism, unspecified; N18.32 Chronic kidney disease, stage 3b; I48.91 Unspecified atrial fibrillation; E88.09 Other disorders of plasma-protein metabolism, not elsewhere classified; E11.21 Type 2 diabetes mellitus with diabetic nephropathy; Z82.49 Family history of ischemic heart disease and other diseases of the circulatory system; Z91.19 Patient's noncompliance with other medical treatment and regimen; Z79.899 Other long term (current) drug therapy; Z79.82 Long term (current) use of aspirin; Z68.22 Body mass index [BMI] 22.0-22.9, adult
CPT/HCPCS: 36415; 71045; 76770; 80053; 80305; 81003; 82150; 83036; 83615; 83735; 83880; 84100; 84436; 84439; 84443; 84479; 84484; 85025; 85379; 85610; 85651; 85730; 86140; 86886; 86900; 86901; 87040; 87081; 87086; 93005; 96365; 96375; 99285; J0456; J0696; J1100; J1644; J1650; J1940; J7030; J7060; P9046; U0003

== ENCOUNTER 2020-09-02 05:05 | Inpatient (IN) | payer OTHER ==
[~2020-09-02] VITALS: Ht 167.6 cm; Wt 95.3 kg
[2020-09-02] VITALS (20 sets, daily range): BP systolic 61–141; BP diastolic 25–103
[~2020-09-02 05:05] MED LIST changes: +ALBU0.0912 INH; -AMIO100T3 PO; +APIX5TAB PO; +CARV3.122 PO; +FURO-570 PO; -FURO-572 PO; -LEVO0.155 PO; +LEVO0.173 PO; -LEVO750T2 PO; -LOSA50TA66 PO; -METF500T PO; -METO25TA PO; -MULT-2112 PO; -VITA1TAB44 PO; -XAR10 PO
--- NOTE | 2020-09-02 05:05 | NUR ---
74 Y/O M BIBA, A&0X0, PT WAS PREVIOUSLY ON HOSPICE CARE AT HOME FOR A WEEK, FAMILY STATED PT SAIDE "IM GOING TO , I WANT TO GO TO THE HOSPITAL", PT WAS BROUGHT IN FOR SOB, ON RA SATURATION 78%, PT NOTED GURGLING, NSR ON MONITOR, R SIDE EDEMATOUS, ABD DISTENDED, RAC IV ACCESS. MED HX: CHF, DM ALLERGIES: NKA
--- NOTE | 2020-09-02 05:05 | NUR ---
ERMD AT BEDSIDE FOR MEDICAL EVALUATION.
--- NOTE | 2020-09-02 05:05 | NUR ---
Pt bolivar from home and taken to ER bed 1
--- NOTE | 2020-09-02 05:06 | NUR ---
RT AT BEDSIDE FOR RESPIRATORY EVALUATION. PER ERMD PLACE PT ON BIPAP.
[2020-09-02] MEDS ORDERED: ALBUTEROL 0.083% 2.5 MG/3 ML NEBU INH ONE (05:10)
[2020-09-02] MEDS ORDERED: CALCIUM GLUCONATE 10% 1000 MG/10 ML VIAL IVP ONE (05:10)
[2020-09-02] MEDS ORDERED: SODIUM BICARBONATE 8.4% PFS 50 MEQ/50 ML SYR IVP ONE (05:10)
[2020-09-02] MEDS ORDERED: FUROSEMIDE 100 MG/10 ML VIAL IVP ONE (05:10)
[2020-09-02] MEDS ORDERED: INSULIN REGULAR, HUMAN 100 UNIT/ML VIAL IV ONE (05:10)
[2020-09-02] MEDS ORDERED: DEXTROSE 50% 50 ML SYR IVP ONE (05:15)
--- NOTE | 2020-09-02 05:35 | NUR ---
18G IV TO RT UPPER ARM PLACED BY ERMD VIA ULTRASOUND. BLOOD LABS AND CULTURES COLLECTED FROM IV SITE AND WALKED TO LAB.
--- NOTE | 2020-09-02 05:43 | NUR ---
Verbal consent witnessed by 2 RNs from pt's daughter Meme for paracentesis & thoracentesis.
[2020-09-02 05:55] LABS: BASOPHILS % (AUTO) 0.5 % (0.0-2.0); EOSINOPHILS # (AUTO) 0.1 K/uL (0-0.4); EOSINOPHILS % (AUTO) 2.1 % (0.0-4.0); HEMATOCRIT 41.9 % (36-52); HEMOGLOBIN 13.6 g/dL (12.0-18.0); LYMPHOCYTES % (AUTO) 28.9 % (20.5-51.1); MEAN CORPUSCULAR HEMOGLOBIN 32 pg (27-31); MEAN CORPUSCULAR HGB CONC 32 g/dL (33-37); MEAN CORPUSCULAR VOLUME 98.1 fL (80-94); NEUTROPHILS # (AUTO) 3.8 K/uL (1.8-7.7); NEUTROPHILS % (AUTO) 54.5 % (42.2-75.2); PLATELET COUNT (AUTO) 73 K/uL (140-450); RED BLOOD CELL COUNT(AUTO) 4.28 MIL/uL (4.20-6.10); RED CELL DISTRIBUTION WIDTH 20.8 % (11.6-13.7); WHITE BLOOD COUNT (AUTO) 6.9 K/uL (4.8-10.8)
--- NOTE | 2020-09-02 05:55 | NUR ---
ERMD AT BEDSIDE FOR PROCEDURE.
--- NOTE | 2020-09-02 05:57 | NUR ---
# 16 FR Britt catheter with 10 ml utilizing sterile technique. Immediate return of 200 ml yellow urine noted. Bedside drainage bag placed below level of bladder. Urine sample collected and sent to lab. Pt tolerated procedure well.
--- NOTE | 2020-09-02 05:58 | NUR ---
URINE SAMPLE COLLECTED AND WALKED TO LAB.
[2020-09-02 06:12] LABS: PROTHROMBIN TIME 19.5 secs (10.8-13.4)
[2020-09-02] MEDS ORDERED: FURO-571 PO (06:20)
[2020-09-02] MEDS ORDERED: LEVO0.155 PO (06:20)
[2020-09-02 06:23] LABS: ALBUMIN 3.5 g/dL (3.4-5.0); ASPARTATE AMINOTRANSFERASE 30 U/L (15-37); CHLORIDE 101 mmol/L (98-107); CREATININE 2.4 mg/dL (0.6-1.3); GLUCOSE 142 mg/dL (74-106); POTASSIUM 4.5 mmol/L (3.5-5.1); SODIUM SERUM 144 mmol/L (136-145); TOTAL BILIRUBIN 1.5 mg/dL (0.0-1.0)
[2020-09-02] MEDS ORDERED: cefTRIAXone 2,000 MG in DEXTROSE 5% 100 ML IV ONE (06:30)
--- NOTE | 2020-09-02 06:30 | NUR ---
COVID AND FLU SWAB COLLECTED AND WALKED TO LAB
[2020-09-02 06:31] LABS: FREE T4 (FREE THYROXINE) 1.41 ng/dL (0.76-1.46); MAGNESIUM 2.1 mg/dL (1.8-2.4); THYROID STIMULATING HORMONE 12.57 uIU/mL (0.34-3.74)
[2020-09-02] MEDS ORDERED: cefTRIAXone 2,000 MG VIAL ONE (06:32)
[2020-09-02] MEDS ORDERED: ALBUMIN HUMAN 25% 100 ML IV ONE (06:35)
[2020-09-02] MEDS ORDERED: ATROPINE 1 MG/10 ML SYR IVP ONE (06:35)
[2020-09-02 06:51] LABS: CARBON DIOXIDE 24.5 mmol/L (21-32)
[2020-09-02 06:53] LABS: UREA NITROGEN, BLOOD 67 mg/dL (7-18)
[2020-09-02 06:56] LABS: APPEARANCE,URINE CLEAR (CLEAR); BILIRUBIN,URINE NEGATIVE (NEGATIVE); BLOOD, URINE 1+ (NEGATIVE); COLOR,URINE YELLOW (YELLOW); LEUKOCYTE ESTERASE ,URINE NEGATIVE (NEGATIVE); NITRITE, URINE NEGATIVE (NEGATIVE); PH,URINE 5.5 (5.0-9.0); UGLUCOSE NEGATIVE (NEGATIVE)
[2020-09-02 06:59] LABS: WBC,URINE 0-5 /HPF (0-5)
--- NOTE | 2020-09-02 07:11 | NUR ---
ENDORSED TO DAY SHIFT RN FOR CONTINUITY OF CARE
[2020-09-02 07:44] LABS: APPEARANCE,SPUN,BODY FLUID CLEAR (CLEAR); APPEARANCE,UNSPUN,BODY FLUID HAZY (CLEAR); COLOR,BODY FLUID DARK YELLOW (LT YELLOW); SPECIMENTYPE,BODY FLUID PERITONEAL FLUID
[2020-09-02 07:45] LABS: POLYNUCLEAR, BODY FLUID 5 %; RBC, BODY FLUID 2475 /cu. mm.; TOTAL VOLUME,BODY FLUID 30 mL; WBC, BODY FLUID 42 /cu. mm.
[2020-09-02 07:49] LABS: GLUCOSE,BODY FLUID 161 mg/dL
[2020-09-02] MEDS ORDERED: MAG SULF 2000 MG/WATER PREMIX 50 ML IV PRN (08:55)
[2020-09-02] MEDS ORDERED: HYDROcodone/APAP 5/325 MG 1 TAB TAB PO PRN (08:55)
[2020-09-02] MEDS ORDERED: ONDANSETRON 4 MG/2 ML VIAL IVP PRN (08:55)
[2020-09-02] MEDS ORDERED: MAGNESIUM OXIDE 400 MG TAB PO PRN (08:55)
[2020-09-02] MEDS ORDERED: ACETAMINOPHEN 325 MG TAB PO PRN (08:55)
[2020-09-02] MEDS ORDERED: POTASSIUM CHLORIDE 10 MEQ TABER PO PRN (08:55)
--- NOTE | 2020-09-02 09:40 | NUR ---
RECEIVED BEDSIDE REPORT FROM ER NURSE.
--- NOTE | 2020-09-02 10:10 | NUR ---
DC PLANNIN MALE PATIENT WAS ADMITTED FROM HOME WITH A DX OF ACUTE ON CHRONIC HYPOXIC RESP FAILURE. PT HAS A HX OF CAD ,CHF ,DM, LEG WOUND AND HTN. CXR SHOWED CHF. US CHEST SHOWED MODERATED PLEURAL EFFUSION. ORDERED THORACENTESIS. RAPID COVID TEST NEGATIVE. ADMINISTERED IVF, IV ABX ZOSYN LASIX IV AND CONTINUED HOME MEDS. ON BIPAP FIO2 70% SATING 98%. CONSULTED WITH NEPHRO AND CUSTOMER RELATIONS SPECIALIST. DC PLAN TO GO HOME WHEN STABLE CM TO FOLLOW Addendum: 09/04/20 at 1033 by Amy Hair RN DC PLANNING: PT REMAIN IN ICU, ON BIPAP 60% FIO2. CONTINUED IV ABX ZOSYN AND IV LASIX. ULTRASOUND GUIDED LEFT THORACENTESIS REMOVED 0.325L, NEPHRO AND PULMO FOLLOWING . DC PLAN TO DOWN GRADE TO [facility] WHEN STABLE CM TO FOLLOW Addendum: 09/10/20 at 1008 by Amy Hair RN DC PLANNING: CALLED PT'S DAUGHTER RAE [phone] UNABLE TO GET HOLD OF HER LEFT A MESSAGE. FAXED ALL PAPERWORK TO [facility] TO SCHEDULE OUT PATIENT DIALYSIS. CM TO FOLLOW Addendum: 09/10/20 at 1220 by Amy Hair RN DC PLANNING: RECEIVED A CALL FROM PT'S DAUGHTER RAE STATED SHE TALKED TO THE DR YESTERDAY SHE IS AWARE OF THE PROCEDURE AND WILL GIVE CONSENT. TRANSFERRED THE CALL TO REGINE MOHR. CALLED [facility] SPOKE WITH RAE AWAITING FOR THE HD SHEETS TO BE FAX. CALLED [facility] LEFT A MESSAGE. DC PLAN AWAITING FOR HEMODIALYSIS TO START. CM TO FOLLOW Addendum: 09/10/20 at 1354 by Amy Hair RN DC PLANNING: RECEIVED A CALL FROM [facility] SPOKE WITH DARIEN NOTIFIED NEEDS AUTH FOR OUTPATIENT HEMODIALYSIS WITH [facility]. PROVIDE [facility]'S COORDINATOR RAE'S NUMBER. ORTEGARY WILL BE THE CM [phone] EXT [phone]. CM TO FOLLOW Addendum: 09/11/20 at 1322 by Amy Hair RN DC PLANNING: CALLED PT DAUGHTER RAE LEFT A MESSAGE TO DISCUSS DC PLAN . CALLED AUGUSTA PAZ AT [facility] [phone] EXT [phone] LEFT A MESSAGE. CM TO FOLLOW Addendum: 09/11/20 at 1333 by Amy Hair RN DC PLANNING: RECEIVED A CALL FROM [facility] COORDINATOR PT HAS A CHAIR TIME M-W-F AT 1:30 PM. Addendum: 09/12/20 at 1125 by Amy Hair RN DC PLANNING: CALLED [facility] [phone] SPOKE WITH AUGUSTA PAZ STATED THEY ARE RESPONSIBLE FOR SNF AND ALIGNMENT IS COVER THE TRANSPORT. HE PROVIDED THE AUTH# [id number] FOR SNF AND TO CALL [phone] FOR TRANSPORT. [facility] ACCEPTED PATIENT CAN GO TO ROOM [address]B UNDER DR TORRI SENIOR. TO FOLLOW Addendum: 09/12/20 at 1456 by Amy Hair RN DC PLANNING: RECEIVED A CALL FROM [facility] SPOKE WITH HAWK PAZ [phone] STATED SINCE PT WAS ON HOSPICE AND REVOKED IT PRIOR TO ADMISSION MEDICARE WILL BE RESPONSIBLE. SPOKE WITH AUGUSTA PAZ AT [facility] STATED MEDICARE WILL BE RESPONSIBLE. SPOKE WITH ISAAK AT [facility] IF PT'S FAMILY HELP WITH THE TRANSPORT WILL CONSIDER TO PAY HALF. CALLED PT'S DAUGHTER RAE NOTIFIED HER THAT ALIGNMENT WON'T COVER THE TRANSPORT UNTIL September AND TO CONTACT ISAAK AT [facility] TO ARRANGE THE PAYMENT. CM TO FOLLOW Addendum: 09/12/20 at 1548 by Amy Hair RN DC PLANNING: PER ISAAK [facility] ARRANGE TRANSPORT WITH PERSONAL CARE NAME MIKIE WILL PROFESSIONAL ATHLETE PATIENT BETWEEN 6-6:30PM. PT IS GOING TO ROOM 51B # TO GIVE REPORT [phone] NOTIFIED JO MOHR. CM TO FOLLOW
--- NOTE | 2020-09-02 10:10 | NUR ---
PT ARRIVED AT UNIT VIA GURNEY WITH BIPAP, TRANSFERRED PT TO BED, TOLERATED WELL, PT ON BIPAP 100% FIO2 SATURATING @ 94%, NO SOB NOTED, IV TO L AC 22G PATENT INTACT SL, R UPPER ARM 18G PATENT INTACT, SL, HERNANDEZ CATH IN PLACE DRAINING TO GRAVITY, INITIAL ASSESSMENT DONE, MRSA SWAB TAKEN, CALL LIGHT WITHIN REACH, WILL CONTINUE TO MONITOR.
--- NOTE | 2020-09-02 10:18 | NUR ---
Patient will be admitted to care of DASIA CRAMER . Admited to ICU. Will go to room 1. Belongings list completed. Report to KLAUDIA MOHR.
[2020-09-02] MEDS ORDERED: DOPamine 400 MG/D5W PREMIX 250 ML IV PRN (11:10)
[2020-09-02] MEDS ORDERED: DOPamine 400 MG/D5W PREMIX 250 ML IV ONE (11:11)
--- NOTE | 2020-09-02 11:11 | NUR ---
CALLED DR. POPE REGARDING PT HR 45, AND ORDER OF THORACENTHESIS, PER DR POPE TO ORDER DOPAMINE DRIP FOR PT, START @ 5MCG/KG/MIN, AND TO HOLD OFF THORACENTHESIS UNTIL PT STABLE. WILL CONTINUE WITH ORDER.
--- NOTE | 2020-09-02 11:28 | NUR ---
BRACHIAL ABG ATTEMPTED WITH DOPPLER, SECOND RT TO ATTEMPT.
--- NOTE | 2020-09-02 11:32 | NUR ---
CALLED PT DAUGHTER RAE REGARDING CONSENTS, LEFT VOICE MAIL, AWAITING FOR CALL BACK.
[2020-09-02] MEDS: BLOOD GLUCOSE MONITORING 1 DEV DEV FS SCH ×3 (12:13→21:40)
[2020-09-02] MEDS: PIPERACILLIN/TAZOBACTAM 3.375 GM in DEXTROSE 5% 50 ML IV SCH ×2 (12:14→17:45)
--- NOTE | 2020-09-02 12:20 | NUR ---
CALLED AGAIN PT DAUGHTER RAE REGARDING CONSENTS, LEFT VOICE MAIL, AWAITING FOR CALL BACK.
--- NOTE | 2020-09-02 13:45 | NUR ---
RECEIVED REPORT FOR KLAUDIA MOHR FOR CONTINUITY OF CARE. PATIENT IS AOX0, RESPONSIVE TO SHAKING. ON BIPAP, FIO2 100%, RATE 24, IPAP 18, EPAP 8. ON GENERAL MAINTENANCE TECHNICIAN, JUNCTIONAL RHYTHM. NPO EXCEPT MEDS. HERNANDEZ CATH IN PLACE. IVS CLEAN, DR, AND INTACT, ON CRISTINA 18G INFUSING DOPAMINE AT 3 MCG/KG/ MIN AND ON LAC 22 G INFUSING NS AT 10 ML/HR TKO. OPEN WOUNDS ON LEFT LOWER EXTREMITY, RIGHT LOWER EXTREMITY, AND RIGHT KNEE, PARACENTESIS WOUND CLOSED, PICTURES TAKEN. GENERAL MAINTENANCE TECHNICIAN, PULSE OXIMETER, AND SAFETY MEASURES IN PLACE. BED IN LOW POSITION, HEAD OF BED AT 30 DEGREES, BED LOCKED. WILL CONTINUE TO MONITOR.
--- NOTE | 2020-09-02 13:45 | NUR ---
ENDORSED TO ONUR PINEDA FOR CONTINUOUS OF CARE
[2020-09-02] MEDS: ALBUMIN HUMAN 25% 100 ML IV SCH ×2 (13:55→21:40)
[2020-09-02] MEDS: FUROSEMIDE 40 MG/4 ML VIAL IVP SCH ×2 (13:56→17:45)
--- NOTE | 2020-09-02 14:10 | NUR ---
SPOKE TO DAUGHTER RAE FORMAN REGARDING CONSENT FOR PICC AND THORACENTHESIS, PT DAUGHTER CONSENTED BY PHONE, ALL QUESTIONS ANSWERED.
--- NOTE | 2020-09-02 14:25 | NUR ---
DR. JAIN CALLED, ASKING FOR FAMILY. INFORMED THAT PATIENT'S DAUGHTER CALLED. GAVE DR. JAIN DAUGHTER'S NUMBER. WILL CONTINUE TO MONITOR.
[2020-09-02] MEDS ORDERED: DEXT 5% / NACL 0.45% 1,000 ML IV SCH (14:40)
--- NOTE | 2020-09-02 14:59 | NUR ---
PATIENT HAS BEEN SCREENED AND CATEGORIZED HIGH NUTRITION RISK. PATIENT WILL BE SEEN WITHIN 1-2 DAYS OF ADMISSION. 09/02/20-09/03/20 [facility] REFERRAL WAS RECEIVED FOR UNHEALED WOUNDS. LIZZETH TENA RD
--- NOTE | 2020-09-02 16:25 | NUR ---
CHECKED BLOOD SUGAR, 38. ADMINISTERED D50 PRN. WILL RECHECK BLOOD SUGAR. WILL CONTINUE TO MONITOR.
[2020-09-02] MEDS: DEXTROSE 50% 50 ML SYR IVP PRN ×2 (16:30→20:05)
--- NOTE | 2020-09-02 16:55 | NUR ---
RECHECKED BLOOD SUGAR, 95. WILL CONTINUE TO MONITOR.
[2020-09-02] MEDS ORDERED: FUROSEMIDE 40 MG/4 ML VIAL IVP SCH (17:00)
--- NOTE | 2020-09-02 19:00 | NUR ---
ARTERIAL BLOOD GAS ATTEMPTED, BOTH RIGHT AND LEFT BRACHIAL ATTEMPTED, UNABLE TO OBTAIN AT THIS TIME. WILL ATTEMPT AGAIN WITH ASSISTANCE FROM ADDITIONAL RT.
--- NOTE | 2020-09-02 20:00 | NUR ---
RESTING BLOOD SUGAR = 58 AT THIS TIME. D50% ADMINISTERED ORDERED. WILL FOLLOW UP.
--- NOTE | 2020-09-02 20:00 | NUR ---
RECEIVED PT LYING IN BED IN SEMI FOWLERS. A/O X1. UNABLE TO FOLLOW SIMPLE COMMANDS. PUPILS 3 MM, PERRL. RAQUEL-ORBITAL EDEMA NOTED. CONTINUES ON BIPAP , 100% FIO2. TOLERATING WELL. LUNGS COARSE THROUGHOUT. HEART SOUNDS DISTANT. +S1, S2. CAP REFILL >3 SEC. ABD FIRM, DISTENDED. +4 PITTING EDEMA NOTED TO BI UPPER/ BI LOWER EXTREMITIES. CRISTINA PICC IN PLACE INFUSING D5 1/2 NS, DOPAMINE ORDERED. SEE IV SPREADSHEET FOR DETAILS. SALINE-LOCKED PERIPHERAL IV TO LT AC NOTED. PATENT. HERNANDEZ IN PLACE DRAINING PALE, PINK URINE TO GRAVITY. OPEN WOUNDS TO BI LOWER EXTREMITIES, SEE WOUND ASSESSMENT FOR DETAILS. FLACC 0. SAFETY PRECAUTIONS IN PLACE WITH BED LOW AND LOCKED. WILL CONT TO MONITOR.
--- NOTE | 2020-09-02 20:30 | NUR ---
RANDOM BLOOD SUGAR 91. NO INTERVENTION NEEDED. WILL CONT TO MONITOR FOR CHANGES.
[2020-09-03] VITALS (35 sets, daily range): BP systolic 93–156; BP diastolic 41–119
[2020-09-03] MEDS: PIPERACILLIN/TAZOBACTAM 3.375 GM in DEXTROSE 5% 50 ML IV SCH ×5 (00:17→23:37)
[2020-09-03] MEDS: FUROSEMIDE 40 MG/4 ML VIAL IVP SCH ×3 (00:18→12:16)
--- NOTE | 2020-09-03 02:00 | NUR ---
REPOSITIONED PT WITH PRESSURE AREAS OFFLOADED. FLACC 0
--- NOTE | 2020-09-03 04:30 | NUR ---
BED BATH PROVIDED. PT TOLERATED WELL. ORAL CARE AND CATH CARE ADMINISTERED. FLACC 0.
[2020-09-03] MEDS: ALBUMIN HUMAN 25% 100 ML IV SCH (05:17)
[2020-09-03 05:47] LABS: PROTHROMBIN TIME 20.5 secs (10.8-13.4)
[2020-09-03 05:58] LABS: ALBUMIN 3.4 g/dL (3.4-5.0); ANION GAP 13.5 (8-16); ASPARTATE AMINOTRANSFERASE 19 U/L (15-37); CARBON DIOXIDE 28.3 mmol/L (21-32); CHLORIDE 105 mmol/L (98-107); CREATININE 2.1 mg/dL (0.6-1.3); GLUCOSE 77 mg/dL (74-106); POTASSIUM 3.8 mmol/L (3.5-5.1); SODIUM SERUM 143 mmol/L (136-145); TOTAL BILIRUBIN 1.8 mg/dL (0.0-1.0)
[2020-09-03 06:22] LABS: UREA NITROGEN, BLOOD 65 mg/dL (7-18)
[2020-09-03 06:24] LABS: CHOL/HDL RATIO 3.6 (1-4.5); MAGNESIUM 1.8 mg/dL (1.8-2.4)
--- NOTE | 2020-09-03 06:26 | NUR ---
RT'S AT BEDSIDE ATTEMPTING TO COLLECT ABG BLOOD SAMPLE AT THIS TIME.
[2020-09-03 06:44] LABS: BASOPHILS # (AUTO) 0.1 K/uL (0.00-0.22); BASOPHILS % (AUTO) 0.6 % (0.0-2.0); EOSINOPHILS # (AUTO) 0.1 K/uL (0-0.4); EOSINOPHILS % (AUTO) 1.5 % (0.0-4.0); HEMOGLOBIN 12.2 g/dL (12.0-18.0); LYMPHOCYTES # (AUTO) 0.7 K/uL (2.0-11.5); LYMPHOCYTES % (AUTO) 7.5 % (20.5-51.1); MEAN CORPUSCULAR HEMOGLOBIN 32 pg (27-31); MEAN CORPUSCULAR HGB CONC 33 g/dL (33-37); MEAN CORPUSCULAR VOLUME 96.8 fL (80-94); MONOCYTES # (AUTO) 0.8 K/uL (0.8-1.0); MONOCYTES % (AUTO) 9.3 % (1.7-9.3); NEUTROPHILS # (AUTO) 7.3 K/uL (1.8-7.7); NEUTROPHILS % (AUTO) 81.1 % (42.2-75.2); PLATELET COUNT (AUTO) 62 K/uL (140-450); RED BLOOD CELL COUNT(AUTO) 3.83 MIL/uL (4.20-6.10); RED CELL DISTRIBUTION WIDTH 20.1 % (11.6-13.7); WHITE BLOOD COUNT (AUTO) 9.1 K/uL (4.8-10.8)
--- NOTE | 2020-09-03 06:50 | NUR ---
ABG ATTEMPT VIA ULTRASOUND WITH MIXED RETURN, RESULTS GIVEN TO ER MD CASTRO
--- NOTE | 2020-09-03 07:05 | NUR ---
RECEIVED REPORT FROM CHARGE NURSE. PATIENT IS AOX1 TO NAME, AWAKENS TO SHAKING AND NAME, IN COMFORTABLE POSTION, ON BED REST. ON SNUFF PACKING MACHINE OPERATOR, FIRST DEGREE AV BLOCK. ON BIPAP FIO2 100, RATE 24, IPAP 18, EPAP 8. NPO EXCEPT MEDS. HERNANDEZ CATH IN PLACE. IVS CLEAN DRY AND INTACT, ON CRISTINA, DOUBLE LUMEN, INFUSING DOPAMINE AT 1 MCG/KG/MIN AND D5 1/2NS AT 30 ML/HR AND LAC 22G SALINE LOCKED. LAST BLOOD SUGAR 58, D50 GIVEN. LAST BLOOD SUGAR 67. SNUFF PACKING MACHINE OPERATOR, PULSE OXIMETER, AND SAFETY MEASURES IN PLACE. HEAD OF BED AT 30 DEGREES, BED LOCKED. WILL CONTINUE TO MONITOR.
[2020-09-03] MEDS ORDERED: DEXTROSE 10% 1,000 ML IV ONE (08:29)
--- NOTE | 2020-09-03 09:10 | NUR ---
CHECKED ON PATIENT, NO SIGN OF DISTRESS OR PAIN, WILL CONTINUE TO MONITOR.
[2020-09-03] MEDS: DEXTROSE 10% 1,000 ML IV SCH (09:12)
--- NOTE | 2020-09-03 09:30 | NUR ---
DR. TOSHIA DONOHUE. UPDATED ON PATIENT CONDITION AND STATUS. AWARE OF PATIENT'S LOW PLATELETS. WILL CONTINUE TO MONITOR.
--- NOTE | 2020-09-03 11:10 | NUR ---
CHECKED ON PATIENT, NO SIGN OF DISTRESS OR PAIN, WILL CONTINUE TO MONITOR.
[2020-09-03] MEDS ORDERED: LIDOCAINE/EPI 1% 1:100000 20 ML VIAL INJ ONE (11:55)
[2020-09-03] MEDS: BLOOD GLUCOSE MONITORING 1 DEV DEV FS SCH ×3 (12:13→23:41)
[2020-09-03] MEDS: DEXTROSE 50% 50 ML SYR IVP PRN (12:16)
[2020-09-03] MEDS ORDERED: FUROSEMIDE 100 MG in DEXTROSE 5% 100 ML IV SCH (13:00)
--- NOTE | 2020-09-03 14:27 | NUR ---
09/03/20 RD INITIAL ASSESSMENT COMPLETED PLEASE REFER TO NUTRITION ASSESSMENT UNDER CARE ACTIVITY FOR ESTIMATED NUTRITIONAL NEEDS. 1. RECOMMEND A SWALLOW EVALUATION WHEN PATIENT IS READY FOR PO INTAKE 2. CONTINUE DEXTROSE 10% FOR HYPOGLYCEMIA 3. IF PATIENT WILL CONTINUE ON BIPAP AND NPO FOR MORE THAN 7 DAYS, CONSIDER TPN 4. RD TO FOLLOW-UP 2-3 DAYS, HIGH RISK LIZZETH TENA, RD
[2020-09-03 18:21] LABS: APPEARANCE,SPUN,BODY FLUID CLEAR (CLEAR); APPEARANCE,UNSPUN,BODY FLUID CLOUDY (CLEAR); SPECIMENTYPE,BODY FLUID THORACENTESIS
[2020-09-03 18:25] LABS: COLOR,BODY FLUID YELLOW (LT YELLOW)
[2020-09-03 18:30] LABS: TOTAL VOLUME,BODY FLUID 450 mL
[2020-09-03 18:52] LABS: POLYNUCLEAR, BODY FLUID 50 %; RBC, BODY FLUID 200000 /cu. mm.; WBC, BODY FLUID 100 /cu. mm.
--- NOTE | 2020-09-03 19:09 | NUR ---
ENDORSED CARE TO MARIA ALEJANDRA MOHR FOR CONTINUITY OF CARE.
[2020-09-03 19:10] LABS: GLUCOSE,BODY FLUID 98 mg/dL
--- NOTE | 2020-09-03 19:10 | NUR ---
RECIEVED BEDSIDE ENDORSEMENT FROM DAY SHIFT RN, PT LYING IN BED SUPINE W/ BED LOW AND HOB 30 DEGREES, A&0X2, ABLE TO MAKE NEEDS KNOWN AND FOLLOW COMMAND, GEN WEAKNESS ON BUE/BLE EXTREMITITES, 1ST DEGREE BLOCK W/ BBB ON MONITOR, PT ON BIPAP FIO2 80% RATE 24 W/ SATURATION OF 92%, CRISTINA PICC INFUSING LASIX @ 11 MLS/HR, D10 @ 100MLS/HR, DOPAMINE @ 3 MCG/KG/MIN AND NS TKO, LAC 18 G SALINE LOCKED, PARACENTESIS/THORACENTESIS SITES NOTES, AFEBRILE, SKIN WARM DRY AND NON INTACT/SEE WOUND ASSESSMENT, PT EDEMATOUS W/ PITTING EDEMA, FC IN PLACE DRAINING VIA GRAVITY, PT SHOWING NO SIGNS OF ACUTE DISTRESS, SAFETY MEASURES IN PLACE, WILL CONTINUE WITH CURRENT POC
--- NOTE | 2020-09-03 20:30 | NUR ---
REPOSITIONED PT, PT SHOWING NO SIGNS OF ACUTE DISTRESS
--- NOTE | 2020-09-03 21:10 | NUR ---
phone call to brittanie tucker, segmental wall installer.made aware that arrhythmias noted on monitor ;ekg done and read back ekg report to md; no new orders received
[2020-09-03] MEDS: FUROSEMIDE 100 MG in DEXTROSE 5% 90 ML IV SCH (21:40)
--- NOTE | 2020-09-03 23:42 | NUR ---
ADMINISTERED 0000H MEDICATIONS PER MD ORDERS, BLOOD GLUCOSE 96, REPOSITIONED PT, SHOWING NO SIGNS OF ACUTE DISTRESS
[2020-09-04] VITALS (36 sets, daily range): BP systolic 65–140; BP diastolic 42–103
--- NOTE | 2020-09-04 01:25 | NUR ---
REPOSITIONED PT, PT RESTING AND SHOWING NO SIGNS OF ACUTE DISTRESS
--- NOTE | 2020-09-04 03:26 | NUR ---
PT RESTING AND SHOWING NO SIGNS OF ACUTE DISTRESS
--- NOTE | 2020-09-04 05:10 | NUR ---
MORNING CARE GIVEN, REPOSITIONED PT, SHOWING NO SIGNS OF ACUTE DISTRESS
[2020-09-04] MEDS: PIPERACILLIN/TAZOBACTAM 3.375 GM in DEXTROSE 5% 50 ML IV SCH ×4 (05:24→23:16)
[2020-09-04] MEDS: BLOOD GLUCOSE MONITORING 1 DEV DEV FS SCH ×4 (05:29→23:22)
--- NOTE | 2020-09-04 05:29 | NUR ---
ADMINISTERED 0600H MEDICATIONS PER MD ORDERS, BLOOD GLUCOSE 92
[2020-09-04 05:46] LABS: PROTHROMBIN TIME 20.6 secs (10.8-13.4)
[2020-09-04 05:56] LABS: ANION GAP 8.8 (8-16); ASPARTATE AMINOTRANSFERASE 19 U/L (15-37); CARBON DIOXIDE 31.4 mmol/L (21-32); CHLORIDE 106 mmol/L (98-107); CREATININE 2.3 mg/dL (0.6-1.3); GLUCOSE 112 mg/dL (74-106); MAGNESIUM 1.7 mg/dL (1.8-2.4); POTASSIUM 3.2 mmol/L (3.5-5.1); SODIUM SERUM 143 mmol/L (136-145); TOTAL BILIRUBIN 1.3 mg/dL (0.0-1.0); UREA NITROGEN, BLOOD 56 mg/dL (7-18)
[2020-09-04 06:10] LABS: BASOPHILS % (AUTO) 0.3 % (0.0-2.0); EOSINOPHILS # (AUTO) 0.1 K/uL (0-0.4); EOSINOPHILS % (AUTO) 1.2 % (0.0-4.0); HEMATOCRIT 32.9 % (36-52); HEMOGLOBIN 10.8 g/dL (12.0-18.0); LYMPHOCYTES # (AUTO) 1.3 K/uL (2.0-11.5); LYMPHOCYTES % (AUTO) 17.5 % (20.5-51.1); MEAN CORPUSCULAR HEMOGLOBIN 32 pg (27-31); MEAN CORPUSCULAR HGB CONC 33 g/dL (33-37); MEAN CORPUSCULAR VOLUME 97.4 fL (80-94); MONOCYTES # (AUTO) 0.9 K/uL (0.8-1.0); MONOCYTES % (AUTO) 12.3 % (1.7-9.3); NEUTROPHILS % (AUTO) 68.7 % (42.2-75.2); PLATELET COUNT (AUTO) 57 K/uL (140-450); RED BLOOD CELL COUNT(AUTO) 3.37 MIL/uL (4.20-6.10); RED CELL DISTRIBUTION WIDTH 19.9 % (11.6-13.7); WHITE BLOOD COUNT (AUTO) 7.2 K/uL (4.8-10.8)
[2020-09-04] MEDS: KCL 20 MEQ/WATER INJ PREMIX 200 ML IV PRN (06:46)
--- NOTE | 2020-09-04 07:30 | NUR ---
RECEIVED REPORT FROM NIGHT RN FOR CONTINUITY OF CARE. PATIENT IS AOX2, ORIENTED TO PERSON AND PLACE. ABLE TO MAKE NEEDS KNOWN. ON BIPAP, FIO2 80%, RATE 18. ON AIR INTELLIGENCE SPECIALIST, SR. NPO EXCEPT MEDS. HERNANDEZ CATH IN PLACE. CRISTINA PICC INFUSING DOPAMINE AT 1 MCG/KG/ MIN, LASIX 10MG/HR, D10 30CC/HR. OPEN WOUNDS ON LEFT LOWER EXTREMITY, RIGHT LOWER EXTREMITY, AND RIGHT KNEE, PARACENTESIS AND THORACENTESIS WOUNDS. SAFETY MEASURES IN PLACE. BED IN LOW POSITION, HEAD OF BED AT 30 DEGREES, BED LOCKED. WILL CONTINUE TO MONITOR.
--- NOTE | 2020-09-04 07:33 | NUR ---
RECEIVED PT ON BIPAP TOLERATING WELL, SETTINGS 18/8,R24 AND FIO2 80%. PT ASLEEP AT THIS TIME. BIPAP IS PLUGGED INTO A RED OUTLET WITH ALARMS ON AND FUNCTIONING. PROTECTA GEL IS UNDER MASK FOR SKIN PROTECTION, NO BREAKDOWN OR REDNESS NOTED AT THIS TIME. WILL CONTINUE TO MONITOR.
--- NOTE | 2020-09-04 08:50 | NUR ---
HERNANDEZ CARE, SKIN CARE DONE. REPOSITIONED PT
[2020-09-04] MEDS: DEXTROSE 10% 1,000 ML IV SCH (08:58)
[2020-09-04] MEDS: FUROSEMIDE 100 MG in DEXTROSE 5% 90 ML IV SCH ×2 (09:27→20:20)
--- NOTE | 2020-09-04 10:07 | NUR ---
FIO2 TITRATED TO 60% PT ABLE TO RESPOND WHEN SPOKE TO. WILL CONTINUE TO MONITOR.
--- NOTE | 2020-09-04 10:30 | NUR ---
SEEN BY WOUND CARE NURSE
--- NOTE | 2020-09-04 11:10 | NUR ---
PT ASLEEP IN BED. NO S/SX OF PAIN, RESPIRATIONS ARE EVEN AND UNLABORED
--- NOTE | 2020-09-04 11:13 | NUR ---
PT. IS ALERT, AWAKE WITH BI PAP, BILATERAL LOWER LEGS WITH MULTIPLE SKIN TEARS,PARTIAL THICKNESS SKIN LOSS , LARGEST TO LEFT CALF 4.5X3CM WOUND BED MOIST, PINK, NO ODOR, RAQUEL-WOUND SKIN INTACT, DRY SCALY SKIN, PENDING WOUND CULTURES. BILATERAL HEELS ELEVATED. RECOMMENDATION -CLEANSE BLE SKIN TEARS WITH NS. PAT DRY, APPLY XEROFORM DRESSING COVER WITH DRY DRESSING AND WRAP WITH KERLIX ROLLS QD AND PRN IF SOILING
--- NOTE | 2020-09-04 12:00 | NUR ---
SEEN BY DR JAIN AND DR POPE
--- NOTE | 2020-09-04 12:20 | NUR ---
NGT INSERTED TO RIGHT NARES ORDERED. PLACEMENT CONFIRMED BY CXR
[2020-09-04] MEDS ORDERED: MIDODRINE 5 MG TAB PO SCH (13:00)
--- NOTE | 2020-09-04 13:04 | NUR ---
PT TAKEN OFF OF BIPAP AND PLACED ON 6L OXYMIZER. PT NOT IN ANY DISTRESS AT THIS TIME. ABLE TO SPEAK IN COMPLETE SENTENCES WITHOUT BECOMING SOB. NURSE AWARE. WILL CONTINUE TO MONITOR.
[2020-09-04] MEDS: ALBUTEROL SULFATE/IPRATROPIU 3 ML SOL IH PRN (13:06)
--- NOTE | 2020-09-04 13:14 | NUR ---
RD RECOMMENDATIONS FOR TUBE FEEDIN. RECOMMEND TWO ANDRZEJ HN @ 50 ML/HR GOAL RATE. START AT 10 ML/HR & ADVANCE BY 10 ML/HR Q4H. -THIS WILL PROVIDE 1200 ML OF VOLUME, 840 ML OF H20, 2400 KCAL AND 100 GM OF PROTEIN, MEETING ADEQUATE NUTRIENT NEEDS. 2. RECOMMEND FREE WATER FLUSH OF 60 ML Q4H OR PER MD LIZZETH TENA, RD
[2020-09-04] MEDS: MIDODRINE 5 MG TAB PO SCH ×2 (13:15→18:20)
--- NOTE | 2020-09-04 13:16 | NUR ---
SCHEDULED MIDODRINE GIVEN VIA NGT, FLUSHED BEFORE AND AFTER MED. PATIENT IS AWAKE AND RESTING ON BED AT THIS TIME. NO SIGNS OF ACUTE DISTRESS NOTED ON 6 LPM VIA OXIMIZER. SAFETY MEASURES IN PLACE.
--- NOTE | 2020-09-04 14:17 | NUR ---
PATIENT'S DAUGHTER RAE CALLED, PROVIDED UPDATES TO RAE AND ANSWERED ALL HER QUESTIONS. RAE WAS AWARE PATIENT IS IN ICU AND BEING MONITORING CLOSELY.
--- NOTE | 2020-09-04 14:58 | NUR ---
UNABLE TO INSERT NGT AFTER 3 ATTEMPTS BY ONUR AND CASI. WILL NOTIFY MD Addendum: 09/04/20 at 1500 by Butch Dozier RN DISREGARD ABOVE NOTE. FOR OTHER PT
--- NOTE | 2020-09-04 15:17 | NUR ---
OXYMIZER TITRATED TO 5L, PT NOT IN ANY DISTRESS. WILL CONTINUE TO MONITOR.
--- NOTE | 2020-09-04 16:35 | NUR ---
AWAKE AND ALERT, ON 5L OXYMIZER, NO C/O PAIN, NO SOB
--- NOTE | 2020-09-04 17:10 | NUR ---
STARTED TUBE FEEDING TWO ANDRZEJ 10CC/HR WITH GOAL RATE OF 50CC/HR FWF 60CC Q4H
--- NOTE | 2020-09-04 18:20 | NUR ---
BP 94/51 MAP 65 PULSE 83, SCHEDULED MIDODRINE ADMINISTERED VIA NGT, FLUSHED BEFORE AND AFTER MED. PATIENT IS RESTING ON BED COMFORTABLY, AROUSABLE TO VOICE. DENIED PAIN, SOB AND NAUSEA. NO SIGNS OF ACUTE DISTRESS NOTED. SAFETY MEASURES IN PLACE.
--- NOTE | 2020-09-04 19:30 | NUR ---
RECEIVED CARE AND REPORT FROM DAYSHIFT RN. PATIENT ALERT AND ORIENTED X3 TO PERSON, PLACE TIME AND EVENT. PATIENT OCCASIONALLY CONFUSED WHEN VERBALLY COMMUNICATING. PATIENT CURRENTLY CONNECTED TO OXYMIZER AT 5 LPM, OXYGEN SATURATION AT 95%, HOB 30 DEGREES, AIRWAY OPEN, CLEAR AND MAINTAINABLE, DENIES ANY SOB OR DIFFICULTY WHEN ASKED. PATIENT HAS AN NGT TUBE INT HE RIGHT NARE, TWO ANDRZEJ HN AT 10 ML/HR, FWF 60 Q4, TOLERATING WELL. PATIENT CONNECTED TO CONTINUOUS IRRIGATION TECHNICIAN, HR 69, NSR, WILL CONTINUE TO CLOSELY MONITOR. PATIENT HAS IV SITE OF RIGHT UPPER ARM PICC LINE, SITE INTACT, DRESSING DRY, FLUSHING WELL. IV DRIPS CURRENTLY RUNNING INCLUDE DOPAMINE ON HOLD AT THIS TIME, FUROSEMIDE AT 10 ML/HR AND D10% AT 30 ML/HR. PATIENT APPROXIMATE WEIGHT IS 97.5 KG. PATIENT HAS A HERNANDEZ CATHETER INTACT, IN PLACE, SECURED AND DRAINING WELL. SKINS NON INTACT PRESENTING WITH MULTIPLE LOWER EXTREMITY SKINS TEARS, GENERALIZED BILATERAL EDEMA, AND OPTIFOAM PLACED PROPHYLACTICALLY ON THE SACRAL AREA. PATIENT IS CURRENTLY BEING OFFLOADED FROM PRESSURE POINTS WITH USE OF PILLOWS AND FREQUENT REPOSITIONING BEING PROVIDED. BED IS LOCKED AND LOWERED INTO A POSITION OF SAFETY, CALL LIGHT WITHIN ARMS REACH OF PATIENT AND PATIENT EDUCATED ON HOW TO USE CALL LIGHT/ENVIRONMENT ORIENTATION. RESTFUL HEALING ENVIRONMENT PROMOTED IN THE ROOM AND COMFORT MEASURES IN PLACE. WILL CONTINUE TO REASSESS OFTEN, CLOSELY MONITOR AND FREQUENTLY ROUND THROUGHOUT THE SHIFT.
--- NOTE | 2020-09-04 19:36 | NUR ---
WEANED PT FROM 5L TO 4L ON OXYMIZER. SPO2 97%. PT TOLERATING WELL AT THIS TIME. RN NOTIFIED. WILL CONTINUE TO MONITOR PT.
--- NOTE | 2020-09-04 20:02 | NUR ---
PATIENT RESTING IN A POSITION OF COMFORT, NO OBVIOUS SIGNS OF DISTRESS OBSERVED WHILE AT BEDSIDE. WILL CONTINUE TO REASSESS OFTEN, CLOSELY MONITOR AND FREQUENTLY ROUND.
--- NOTE | 2020-09-04 20:05 | NUR ---
RT AT BEDSIDE, RT TITRATED DOWN TO 4 LPM ON THE OXYMIZER, OXYGEN SATURATION 95%, TOLERATING WELL, WILL CONTINUE TO CLOSELY MONITOR AND FREQUENTLY ROUND.
[2020-09-04] MEDS: FAMOTIDINE 20 MG/2 ML VIAL IV SCH (20:17)
--- NOTE | 2020-09-04 20:44 | NUR ---
PHONE CALL TO PTS DAUGHTER RAE,PT WANTS TO TALK TO HER ON THE PHONE.PT AND DAUGHTER WERE TALKING IN [place], PRINCIPAL SOLUTIONS ARCHITECT THEN TALKED TO THE DAUGHTER AND ASKED HER IF PT IS ORIENTED AND NOT CONFUSED DURING THEIR TALK; PER RAE, PT IS NOT CONFUSED AT ALL AND THAT HER DAD" SOUNDED A LOT BETTER".
--- NOTE | 2020-09-04 20:45 | NUR ---
SCHEDULED MEDICATIONS GIVEN ORDERED BY MD, PATIENT TOLERATING WELL. NO OBVIOUS SIGNS OF DISTRESS OBSERVED WHILE AT BEDSIDE, PATIENT IN A POSITION OF COMFORT, HOB 30 DEGREES. WILL CONTINUE TO REASSESS, CLOSELY MONITOR AND FREQUENTLY ROUND.
--- NOTE | 2020-09-04 21:05 | NUR ---
TUBE FEEDING RESIDUALS REMAIN LOW, NO RESIDUALS WHEN CHECKED, NG TUBE ASPIRATED, AUSCULTATED, IRRIGATED W/ POSITIVE PLACEMENT OF TUBE, NG TUBE REMAINS IN A SECURED POSITION. INCREASED FEEDING RATE UP TO 20 ML/HR PER MD ORDERS, CONTINUES TO TOLERATE WELL. NO SIGNS OF DISTRESS OBSERVED WILL CONTINUE TO REASSESS OFTEN, CLOSELY MONITOR AND FREQUENTLY ROUND.
--- NOTE | 2020-09-04 22:21 | NUR ---
PATIENT ASLEEP IN A POSITION OF COMFORT, NO OBVIOUS SIGNS OF DISTRESS OBSERVED WHILE AT BEDSIDE, WILL CONTINUE TO REASSESS OFTEN, CLOSELY MONITOR AND FREQUENTLY ROUND.
--- NOTE | 2020-09-04 23:22 | NUR ---
BLOOD GLUCOSE CHECKED, BG 136, NO COVERAGE NEEDED PER MD ORDERS, CONTINUES TO TOLERATE CURRENT THERAPIES, NO SIGNS OF DISTRESS. WILL CONTINUE TO REASSESS OFTEN, CLOSELY MONITOR AND FREQUENTLY ROUND.
[2020-09-05] VITALS (17 sets, daily range): BP systolic 99–135; BP diastolic 55–85
--- NOTE | 2020-09-05 00:39 | NUR ---
PATIENT RESTING A POSITION OF COMFORT, REPOSITIONED, SAFETY CHECKS PROVIDED. NO SIGNS OF DISTRESS OBSERVED WHILE AT BEDSIDE. WILL CONTINUE TO REASSESS OFTEN, CLOSELY MONITOR AND FREQUENTLY ROUND.
--- NOTE | 2020-09-05 02:20 | NUR ---
HYGIENE, SAFETY CHECKS, AND REPOSITIONING PROVIDED. PATIENT CONTINUES TO TOLERATE CURRENT THERAPIES WELL, 4 LPM OXIMIZER, OXYGEN SATURATION 98%, NO SIGNS OF DISTRESS OBSERVED WHILE AT THE BEDSIDE. WILL CONTINUE TO REASSESS OFTEN, CLOSELY MONITOR AND FREQUENTLY ROUND.
--- NOTE | 2020-09-05 04:10 | NUR ---
MORNING CARE, ORAL CARE, RAQUEL CARE, GOWN CHANGE, LINEN CHANGE, HYGIENE, REPOSITIONING, AND SAFETY CHECKS PROVIDED. PATIENT CONTINUES TO TOLERATE CURRENT THERAPIES WELL, NO OBVIOUS SIGNS OF DISTRESS OBSERVED AT BEDSIDE. PATIENT OXYGEN SATURATION 98% ON OXIMIZER AT 4 LPM, RESTING IN A POSITION OF COMFORT. WILL CONTINUE TO REASSESS OFTEN, CLOSELY MONITOR AND FREQUENTLY ROUND.
[2020-09-05] MEDS: PIPERACILLIN/TAZOBACTAM 3.375 GM in DEXTROSE 5% 50 ML IV SCH ×4 (05:09→23:55)
[2020-09-05] MEDS: BLOOD GLUCOSE MONITORING 1 DEV DEV FS SCH ×4 (05:09→23:56)
--- NOTE | 2020-09-05 05:26 | NUR ---
SCHEDULED MEDICATIONS GIVEN ORDERED BY MD, WILL CONTINUE TO REASSESS OFTEN, CLOSELY MONITOR AND FREQUENTLY ROUND.
--- NOTE | 2020-09-05 06:02 | NUR ---
BLOOD GLUCOSE CHECKED, BG 144, NO COVERAGE GIVEN PER MD ORDERS, WILL CONTINUE TO REASSESS OFTEN, CLOSELY MONITOR AND FREQUENTLY ROUND.
[2020-09-05 06:06] LABS: PROTHROMBIN TIME 17.2 secs (10.8-13.4)
[2020-09-05 06:08] LABS: EOSINOPHILS # (AUTO) 0.1 K/uL (0-0.4); HEMOGLOBIN 10.3 g/dL (12.0-18.0); MEAN CORPUSCULAR HEMOGLOBIN 32 pg (27-31)
[2020-09-05] MEDS: MIDODRINE 5 MG TAB PO SCH ×3 (06:24→19:14)
[2020-09-05 06:31] LABS: BASOPHILS % (AUTO) 0.4 % (0.0-2.0); EOSINOPHILS % (AUTO) 1.4 % (0.0-4.0); HEMATOCRIT 31.2 % (36-52); LYMPHOCYTES # (AUTO) 1.3 K/uL (2.0-11.5); LYMPHOCYTES % (AUTO) 16.9 % (20.5-51.1); MEAN CORPUSCULAR HGB CONC 33 g/dL (33-37); MEAN CORPUSCULAR VOLUME 95.6 fL (80-94); MONOCYTES % (AUTO) 13.3 % (1.7-9.3); NEUTROPHILS # (AUTO) 5.2 K/uL (1.8-7.7); RED BLOOD CELL COUNT(AUTO) 3.26 MIL/uL (4.20-6.10); RED CELL DISTRIBUTION WIDTH 20.1 % (11.6-13.7); WHITE BLOOD COUNT (AUTO) 7.6 K/uL (4.8-10.8)
[2020-09-05 06:45] LABS: ALBUMIN 2.7 g/dL (3.4-5.0); ANION GAP 11.7 (8-16); ASPARTATE AMINOTRANSFERASE 12 U/L (15-37); CARBON DIOXIDE 30.6 mmol/L (21-32); CHLORIDE 105 mmol/L (98-107); CREATININE 2.2 mg/dL (0.6-1.3); GLUCOSE 155 mg/dL (74-106); MAGNESIUM 1.7 mg/dL (1.8-2.4); POTASSIUM 3.3 mmol/L (3.5-5.1); SODIUM SERUM 144 mmol/L (136-145); TOTAL BILIRUBIN 1.2 mg/dL (0.0-1.0); UREA NITROGEN, BLOOD 54 mg/dL (7-18)
[2020-09-05 06:58] LABS: PLATELET COUNT (AUTO) 55 K/uL (140-450)
--- NOTE | 2020-09-05 07:15 | NUR ---
RECEIVED BEDSIDE REPORT FROM ESCROW MANAGER NURSE. PATIENT SUPINE IN BED, AWAKE AND ALERT, ABLE TO MAKE NEEDS KNOWN, COMMUNICATING IN THAI. HOB 30 DEGREES, BREATHING EVEN AND UNLABORED, NO SIGNS OF ACUTE DISTRESS NOTED ON 2L OXIMIZER. NG TUBE TO R NARE, RUNNING TWO ANDRZEJ HN @ 30 ML/HR WITH A GOAL OF 50 ML/HR. HERNANDEZ CATHETER IN PLACE, DRAINING TO GRAVITY. CRISTINA PICC LINE INFUSING: D10 @ 30 ML/HR, FUROSEMIDE @ 10 ML/HR. SANITARY ENGINEER IN PLACE, SAFETY MEASURES IN PLACE.
--- NOTE | 2020-09-05 07:30 | NUR ---
RCV'D PT ON 2L OXIMIZER. PT IS AWAKE AND ALERT. NO SOB OR DISTRESS NOTED. RN AT BEDSIDE FOR MORNING REPORT. BIPAP AT BEDSIDE STANDBY FOR SOB BUT NOT IN USE OF NOW. AMBU BAG AT BEDSIDE. WILL CONTINUE TO MONITOR PATIENT.
--- NOTE | 2020-09-05 07:30 | NUR ---
REPORT AND CARE ENDORSED TO ANGELO MOHR.
[2020-09-05] MEDS: FUROSEMIDE 100 MG in DEXTROSE 5% 90 ML IV SCH (07:48)
[2020-09-05] MEDS: KCL 20 MEQ/WATER INJ PREMIX 200 ML IV PRN (07:58)
[2020-09-05] MEDS: DEXTROSE 10% 1,000 ML IV SCH (08:20)
[2020-09-05] MEDS: INSULIN LISPRO SLIDING SCALE 100 UNITS/ML VIAL SUBQ PRN (12:22)
--- NOTE | 2020-09-05 15:17 | NUR ---
PATIENT DAUGHTER, RAE FORMAN WAS CALLED TO INFORM OF NEW ORDERS FOR BLOOD TRANSFUSION/PLATELETS. NO ANSWER, VOICEMAIL WAS LEFT ASKING DAUGHTER TO CALL BACK FOR UPDATE.
--- NOTE | 2020-09-05 16:56 | NUR ---
PT WAS SEEN FOR DYSPHAGIA. PT HAD MILD DIFFICULTY WITH MASTICATION SKILLS FOR REGULAR DIET AND MILD COUGH FOR THIN LIQUID.SAFELY SWALLOWED MS DIET WITH NECTAR THICK LIQUID. RECOMMENDATION MS DIET WITH NECTAR THICK LQUID
--- NOTE | 2020-09-05 18:00 | NUR ---
PATIENT SAFELY TRANSFERRED TO [facility] FROM ICU. NO DISTRESS NOTED. VITALS WNL. WILL CONTINUE TO MONITOR.
[2020-09-05] MEDS ORDERED: NACL 0.9% 500 ML IV SCH (18:05)
--- NOTE | 2020-09-05 18:20 | NUR ---
SCHEDULED MEDICATIONS DUE GIVEN. WILL CONTINUE TO MONITOR.
--- NOTE | 2020-09-05 18:48 | NUR ---
FOUND PT ON 2L OXYMIZER. SPO2 97%. PT TOLERATING WELL AT THIS TIME. PT IS IN NO RESPIRATORY DISTRESS AT THIS TIME. WILL CONTINUE TO MONITOR PT.
--- NOTE | 2020-09-05 19:14 | NUR ---
SCHEDULED MEDICATIONS DUE GIVEN. WILL CONTINUE TO MONITOR.
--- NOTE | 2020-09-05 19:35 | NUR ---
RECEIVED REPORT FROM AM NURSE FOR CONTINUITY OF CARE. PT ON BED WELL RESTED. NO ACUTE DISTRESS. DENIES PAIN. WILL CONTINUE TO MONITOR.
--- NOTE | 2020-09-05 19:40 | NUR ---
GAVE REPORT TO CANNON PINION ADJUSTER NURSE FOR CONTINUITY OF CARE. PATIENT IN STABLE CONDITION.
--- NOTE | 2020-09-05 19:55 | NUR ---
PATIENT IN DISTRESS, UNRESPONSIVE. OXIMYZER WAS REMOVED BY PT. CALLED RAPID RESPONSE. V/S : 92/58, 83, 14, 78%, 96.2. BIPAP 100% FIO2 ADMINISTERED BY RT. PT IN HIGH FOWLERS POSITON. V/S MONITORED. [address] GERARDO COMPOUND FILLER OF DR. FORMAN MADE AWARE WITH ORDER TO MONITOR THE PATIENT. 2019 V/S 124/75, 72, 28, 94%. 96.2. PT AWAKE, VERBALLY RESPONSIVE, ABLE TO COMMUNICATE WITH HIS NEEDS.
--- NOTE | 2020-09-05 20:10 | NUR ---
RESPONDED TO RAPID RESPONDS. FOUND PT WITH SPO2 IN 70s. PLACED PT ON BiPAP WITH 100 FiO2. B/P AND HEART RATE WITHIN NORMAL VALUES. PT WAS ABLE TO OPEN EYES WITH STIMULATIONS. SPO2 GRADUALLY IMPROVING.
--- NOTE | 2020-09-05 20:19 | NUR ---
PT IS AWAKE AND ALERT NOW. CURRENTLY ON BiPAP SETTINGS IPAP 20, EPAP 14, BACK UP RATE 24, FiO2 100%. PT TOLERATING WELL. SPO2 96%. RNs AT BEDSIDE. WILL CONTINUE TO MONITOR PT.
--- NOTE | 2020-09-05 20:23 | NUR ---
ABG ORDER PLACED AND COLLECTED. NO ADVERSE EFFECT. PT TOLERATED PROCEDURE WELL.
[2020-09-05] MEDS ORDERED: DOPPLER MC ONE (20:24)
--- NOTE | 2020-09-05 20:47 | NUR ---
ABG RESULTS REPORTED TO DR. SHIELDS. NO CHANGES AT THIS TIME. CONTINUE TO WEAN PT TOLERATED.
[2020-09-05] MEDS: FAMOTIDINE 20 MG/2 ML VIAL IV SCH (21:16)
--- NOTE | 2020-09-05 21:16 | NUR ---
FAMOTIDINE ADMINISTERED PER MD ORDERED.
--- NOTE | 2020-09-05 22:00 | NUR ---
PATIENT ASLEEP , NO DISTRESS NOTED.
--- NOTE | 2020-09-05 22:35 | NUR ---
SPO2 100%. TITRATED FiO2 TO 50%. DECREASED IPAP TO 16 cmH20 AND EPAP TO 5 cmH20. PT IS TOLERATING CURRENT SETTINGS WELL. SPO2 97%. RN NOTIFIED. WILL CONTINUE TO MONITOR PT.
--- NOTE | 2020-09-05 23:25 | NUR ---
CALLED BLOOD BANK TO FOLLOW UP AGAIN I UNIT PLATELETS. MED [employer] ON DUTY SAID STILL WAITING BUT WILL PROBABLY HAVE IT TONIGHT.
[2020-09-06] VITALS: BP 112/65
--- NOTE | 2020-09-06 00:49 | NUR ---
TITRATED FiO2 TO 30%. PT TOLERATING WELL. WILL CONTINUE TO MONITOR PT.
--- NOTE | 2020-09-06 02:32 | NUR ---
CALLED TO BEDSIDE DUE TO PT TRYING TO REMOVED BiPAP MASK. PLACED PT ON 4L OXYMIZER. SPO2 100%. RNs AT BEDSIDE. WILL CONTINUE TO MONITOR PT.
[2020-09-06] MEDS ORDERED: LORazepam 2 MG/ML VIAL ONE (02:33)
--- NOTE | 2020-09-06 03:00 | NUR ---
HERNANDEZ CATHETER NOT DRAINING . ONLY [address] GERARDO MADE AWARE . WITH ORDER TO REMOVE AND INSERT A NEW ONE.
[2020-09-06] MEDS: LORazepam 2 MG/ML VIAL IVP PRN (03:23)
--- NOTE | 2020-09-06 03:30 | NUR ---
TRIED TO INSERT NEW HERNANDEZ CATHETER BUT UNABLE . HAS SOME RESISTANT NOTED. WILL HAVE MD AWARE.
[2020-09-06 04:00] VITALS: BP 108/60
--- NOTE | 2020-09-06 05:18 | NUR ---
PT VERY CONFUSED AND AGITATED. TRYING TO REMOVE O2, TUBINGS AND TRYING TO GET UP. REORIENT PT TO ROOM AND TREATMENTS BUT REMAINS AGITATED. GOT ORDER FOR RESTRAINT.
[2020-09-06] MEDS: PIPERACILLIN/TAZOBACTAM 3.375 GM in DEXTROSE 5% 50 ML IV SCH ×3 (05:54→18:20)
--- NOTE | 2020-09-06 06:15 | NUR ---
I UNIT PLATELETS TRANSFUSION DONE AT THIS TIME . NO REACTION TO BLOOD NOTED. VITAL SIGNS STABLE.
[2020-09-06] MEDS: BLOOD GLUCOSE MONITORING 1 DEV DEV FS SCH ×3 (06:42→18:36)
--- NOTE | 2020-09-06 06:45 | NUR ---
PAGED DR. DESOUZA , SALVAGE GRINDER FOR DR. FORMAN. WAITING FOR CALL BACK.
--- NOTE | 2020-09-06 07:20 | NUR ---
ENDORSED TO AM NURSE FOR CONTINUITY OF CARE . PT STABLE
--- NOTE | 2020-09-06 07:21 | NUR ---
Received report from pm nurse Sheryl. Pt resting in bed, awake, verbally responsive, no signs of distress. No perdomo in place. Right upper arm PICC bleeding from insertion site. Positive blood backflow, no occlusion or leaking when flushed.
--- NOTE | 2020-09-06 07:36 | NUR ---
PT ENDORSED BY ALIZE FOR CONTINUITY OF CARE, PT IS CURRENTLY RESTING IN BED WITH RESTRAINTS ON . PT IS ON 2 L, SATING AT 98%. PT IS ALERT X2. PT HAD HERNANDEZ CATHETAR REMOVED AT 0500 BY MACHINE HEDDLE CLEANER NURSE, REPORTED THAT SHE ATTEMPTED 3X TO INSERT NEW HERNANDEZ CATH, BY DID NOT SUCCEED. WAS NOTIFIED. PT HAS A RIGHT PICC LINE THAT IS BLEEDING, RUNNING LASIX AT 5ML/HR. PT PLATELET IS 55. ALL SAFETY MEASURES IN PLACE, CALL LIGHT WITHIN REACH. WILL CONTINUE TO MONITOR.
[2020-09-06 08:00] VITALS: BP 111/65
--- NOTE | 2020-09-06 08:00 | NUR ---
CRISTINA PICC cont to ooze sanguineous discharge. ABD pad placed over PICC dressing, then wrapped with mild compression with francine wrap. Both ports with positive blood backflow, flushed with 10mL NS.
[2020-09-06] MEDS: MIDODRINE 5 MG TAB PO SCH ×3 (08:25→18:37)
[2020-09-06] MEDS ORDERED: POTASSIUM CHLORIDE 10 MEQ TABER PO SCH (09:00)
[2020-09-06] MEDS ORDERED: FUROSEMIDE 40 MG/4 ML VIAL IVP SCH (09:00)
[2020-09-06 09:01] LABS: BASOPHILS % (AUTO) 0.4 % (0.0-2.0); EOSINOPHILS % (AUTO) 0.5 % (0.0-4.0); HEMATOCRIT 31.9 % (36-52); HEMOGLOBIN 10.4 g/dL (12.0-18.0); LYMPHOCYTES # (AUTO) 1.6 K/uL (2.0-11.5); MEAN CORPUSCULAR HEMOGLOBIN 32 pg (27-31); MEAN CORPUSCULAR HGB CONC 32 g/dL (33-37); MONOCYTES # (AUTO) 1.1 K/uL (0.8-1.0); MONOCYTES % (AUTO) 14.7 % (1.7-9.3); NEUTROPHILS # (AUTO) 4.5 K/uL (1.8-7.7); NEUTROPHILS % (AUTO) 62.4 % (42.2-75.2); RED BLOOD CELL COUNT(AUTO) 3.26 MIL/uL (4.20-6.10); RED CELL DISTRIBUTION WIDTH 20.8 % (11.6-13.7); WHITE BLOOD COUNT (AUTO) 7.3 K/uL (4.8-10.8)
[2020-09-06 09:22] LABS: PLATELET COUNT (AUTO) 68 K/uL (140-450)
--- NOTE | 2020-09-06 09:27 | NUR ---
LASIX IV PUSH NON ADMINISTERED DUE TO IV DRIP RECENTLY BEING DISCONTINUED AT 0830.
--- NOTE | 2020-09-06 10:00 | NUR ---
Attempted to insert urinary cath Coude 14Fr via sterile technique. Penis is moderately edematous. Unable to advance perdomo. Bladder scan = [address] Keen notified; monitor for now per physician.
[2020-09-06 10:13] LABS: ALBUMIN 2.9 g/dL (3.4-5.0); ANION GAP 15.2 (8-16); ASPARTATE AMINOTRANSFERASE 64 U/L (15-37); CARBON DIOXIDE 28.7 mmol/L (21-32); CHLORIDE 104 mmol/L (98-107); CREATININE 2.9 mg/dL (0.6-1.3); GLUCOSE 103 mg/dL (74-106); MAGNESIUM 1.8 mg/dL (1.8-2.4); POTASSIUM 3.9 mmol/L (3.5-5.1); SODIUM SERUM 144 mmol/L (136-145); TOTAL BILIRUBIN 1.9 mg/dL (0.0-1.0)
[2020-09-06 10:19] LABS: UREA NITROGEN, BLOOD 66 mg/dL (7-18)
--- NOTE | 2020-09-06 10:31 | NUR ---
Spoke to Dr Bessie Oliver re: MgRider order with current Mg level 1.8. Per Dr Oliver, ok to give MgRider 2g as ordered. Physician also notified of BUN 66 & Cr 2.9, and unable to reinsert perdomo. Per physician, cont to monitor at this time.
[2020-09-06 12:00] VITALS: BP 116/66
[2020-09-06] MEDS: MAG SULF 2000 MG/WATER PREMIX 50 ML IV SCH ×2 (12:58→16:00)
--- NOTE | 2020-09-06 13:35 | NUR ---
09/06/20 RD FOLLOW UP COMPLETED PLEASE REFER TO NUTRITION ASSESSMENT UNDER CARE ACTIVITY FOR ESTIMATED NUTRITIONAL NEEDS. 1. CONTINUE MECHANICAL SOFT DIET WITH NECTAR THICK LIQUIDS 2. RECOMMEND ENSURE BID 3. CONTINUE TO PROVIDE ASSISTANCE WITH MEALS AND ENCOURAGE PO INTAKE OVER 50% 4. RD TO FOLLOW-UP 2-3 DAYS, HIGH RISK LIZZETH TENA, RD
--- NOTE | 2020-09-06 15:45 | NUR ---
Dr eKen in unit, notified of pt urinary retention, unable to reinsert perdomo, bladder scan reads ">200mL". Per Dr Keen, he will notify urologist.
[2020-09-06 16:00] VITALS: BP 100/59
--- NOTE | 2020-09-06 16:00 | NUR ---
PT SWITCHED FROM OXYMIZER TO NASAL CANNULA 3 L/M, NO RESPIRATORY DISTRESS NOTED AT THIS TIME. WILL CONTINUE TO MONITOR PT.
--- NOTE | 2020-09-06 17:30 | NUR ---
Inserted Britt cath 14Fr/10mL, drained 150mL urine, no further output despite repositioning of cath. Dr Keen notified, no new orders at this time.
[2020-09-06] MEDS: FUROSEMIDE 40 MG/4 ML VIAL IVP SCH (18:20)
[2020-09-06] MEDS ORDERED: FUROSEMIDE 100 MG in DEXTROSE 5% 90 ML IV SCH (19:00)
--- NOTE | 2020-09-06 19:30 | NUR ---
RECEIVED REPORT FORM [facility] RN DAYSHIFT NURSE AT BEDSIDE FOR CONTINUITY OF CARE. PT IN STABLE CONDITION.
[2020-09-06 20:00] VITALS: BP 111/77
--- NOTE | 2020-09-06 20:00 | NUR ---
PT LYING IN BED HE IS AOX2 AND SYRIAN SPEAKING. HE HAS 2 LITERS 20 VIA N/C. PT HEART RHYTHM IS A FIB ON TELEMONITORING, HE HAS RESTRAINTS DUE TO PULLING OUT HERNANDEZ CATHETER AND ATTEMPTING TO PULL OUT RIGHT UPPER PICC LINE. NO INJURIES NOTED TO SKIN AND CIRCULATION IS OK. PICC LINE IS HAS GOOD BLOOD RETURN BUT HAS A COMPRESSION DRESSING DUE TO LEAKING BLOOD. PT PLATELETS IS ALSO LOW. HE HAS +3 PITTING EDEMA OF UPPER LIMBS AND + 2 PITTING EDEMA OF LOWER LIMBS. PT HAS HERNANDEZ CATHETER DRAINED 150MLS WITH YELLOW BLOOD TINGED URINE. WILL CONTINUE TO MONITOR OUTPUT. ALL FALLS PRECAUTIONS IN PLACE.
--- NOTE | 2020-09-06 21:45 | NUR ---
PT GIVEN IVP ORDERED PEPCID. BLADDER WAS SCANNED AND IT REFLECTED THAT PT HAD RETAINED 600-800MLS OF URINE. HERNANDEZ CATHETER WAS IRRIGATED AND A MINIMAL AMOUNT OF PALE YELLOW/BLOOD TINGED URINE DRAINED. BALLOON DEFLATED AND ATTEMPTED TO BE REPOSITIONED , BUT NO MORE OUT PUT WAS NOTED. WILL ATTEMPT TO REINSERT ANOTHER HERNANDEZ CATHETER.
[2020-09-06] MEDS: FAMOTIDINE 20 MG/2 ML VIAL IV SCH (22:42)
--- NOTE | 2020-09-06 23:00 | NUR ---
RESTRAINTS RELEASED FOR 5 MINUTES, SKIN CHECKED AND NO INJURIES NOTED, CIRCULATION OK. NEW HERNANDEZ CATHETER WAS PLACED (X2 ATTEMPTS) 16FRENCH WITH 10 MLS BALLOON. NO RESISTANCE NOTED WHEN INSERTING THE HERNANDEZ CATHETER AND 100MLS OF PALE YELLOW URINE DRAINED, WILL CONTINUE TO MONITOR FOR URINE DRAINAGE. PT HAD LOOSE BM X1,HE WAS TURNED, CHANGED AND REPOSITIONED IN BED. PT IS SALINE LOCKED AT THIS TIME. ALL FALLS PRECAUTIONS IN PLACE.
[2020-09-07] VITALS: BP 112/60
--- NOTE | 2020-09-07 00:30 | NUR ---
PT SLEEPING, RESTRAINTS RELEASED FOR 5 MINUTES NO INJURIES NOTED. FINGERSTICK IS 145, NO HUMALOG COVERAGE NEEDED.
[2020-09-07] MEDS: BLOOD GLUCOSE MONITORING 1 DEV DEV FS SCH ×4 (00:35→17:18)
[2020-09-07 04:00] VITALS: BP 127/77
--- NOTE | 2020-09-07 04:00 | NUR ---
PT PICC LINE OUT, PT HAD LEFT RESTRAINT ON RIGHT HAND FREE, UNWITNESSED HOW PICC LINE CAME OUT, IT CAME OUT INTACT. PRESSURE DRESSING APPLIED AREA NO ACTIVE BLEEDING. PT FINGERSTICK IS 125 NO HUMALOG COVERAGE NEEDED. PT TURNED, CHANGED AND REPOSITIONED BLOODY STOOL X1.
[2020-09-07] MEDS: MIDODRINE 5 MG TAB PO SCH ×3 (06:23→18:24)
[2020-09-07 06:57] LABS: BASOPHILS # (AUTO) 0.1 K/uL (0.00-0.22); BASOPHILS % (AUTO) 0.9 % (0.0-2.0); EOSINOPHILS # (AUTO) 0.2 K/uL (0-0.4); EOSINOPHILS % (AUTO) 2.6 % (0.0-4.0); HEMATOCRIT 34.4 % (36-52); HEMOGLOBIN 11.2 g/dL (12.0-18.0); LYMPHOCYTES # (AUTO) 1.8 K/uL (2.0-11.5); LYMPHOCYTES % (AUTO) 20.2 % (20.5-51.1); MEAN CORPUSCULAR HEMOGLOBIN 32 pg (27-31); MEAN CORPUSCULAR HGB CONC 33 g/dL (33-37); MEAN CORPUSCULAR VOLUME 97.5 fL (80-94); MONOCYTES # (AUTO) 1.2 K/uL (0.8-1.0); MONOCYTES % (AUTO) 12.8 % (1.7-9.3); NEUTROPHILS # (AUTO) 5.8 K/uL (1.8-7.7); NEUTROPHILS % (AUTO) 63.5 % (42.2-75.2); RED BLOOD CELL COUNT(AUTO) 3.52 MIL/uL (4.20-6.10); RED CELL DISTRIBUTION WIDTH 21.5 % (11.6-13.7); WHITE BLOOD COUNT (AUTO) 9.1 K/uL (4.8-10.8)
[2020-09-07 07:04] LABS: PLATELET COUNT (AUTO) 66 K/uL (140-450)
--- NOTE | 2020-09-07 07:15 | NUR ---
RECEIVED REPORT FROM REST ROOM MAID RN FOR CONTINUITY OF CARE. AOX2, PERIODICALLY CONFUSED. AFIB ON MONITOR. 2L NC SATURATING FROM 96-99. ON MECHANICAL SOFT DIET. BILATERAL LEG WOUNDS WRAPPED IN DRESSING, CLEAN DRY AND INTACT. PATIENT HAS NO IV ACCESS, WILL HOLD IV MEDICATION UNTIL ACCESS IS AVAILABLE. PUBLIC HEALTH ENGINEER AND SAFETY MEASURES IN PLACE, BED IN LOW POSITION, HEAD OF BED 30 DEGREES, BED LOCKED. WILL CONTINUE TO MONITOR.
[2020-09-07 07:41] LABS: ALBUMIN 2.9 g/dL (3.4-5.0); ANION GAP 14.1 (8-16); ASPARTATE AMINOTRANSFERASE 38 U/L (15-37); CARBON DIOXIDE 28.7 mmol/L (21-32); CHLORIDE 102 mmol/L (98-107); CREATININE 3.3 mg/dL (0.6-1.3); GLUCOSE 153 mg/dL (74-106); MAGNESIUM 2.2 mg/dL (1.8-2.4); POTASSIUM 4.8 mmol/L (3.5-5.1); SODIUM SERUM 140 mmol/L (136-145)
[2020-09-07 07:43] LABS: PROTHROMBIN TIME 18.9 secs (10.8-13.4)
[2020-09-07 07:53] LABS: UREA NITROGEN, BLOOD 73 mg/dL (7-18)
[2020-09-07 08:00] VITALS: BP 117/74
--- NOTE | 2020-09-07 08:45 | NUR ---
ATTEMPTED TO PLACE PERIPHERAL IV, NOT ABLE TO INSERT IV, PATIENT TOO EDEMATOUS. WILL CONTINUE TO MONITOR.
[2020-09-07] MEDS: FUROSEMIDE 40 MG/4 ML VIAL IVP SCH ×3 (10:50→22:02)
--- NOTE | 2020-09-07 10:50 | NUR ---
IV LASIX HELD. NO IV ACCESS. WILL CONTINUE TO MONITOR.
[2020-09-07 12:00] VITALS: BP 107/70
--- NOTE | 2020-09-07 12:00 | NUR ---
CHECKED BLOOD SUGAR,93, NO COVERAGE NEEDED. WILL CONTINUE TO MONITOR.
--- NOTE | 2020-09-07 14:37 | NUR ---
CHECKED ON PATIENT, RESTING AND IN NO SIGN OF DISTRESS OR PAIN. WILL CONTINUE TO MONITOR.
[2020-09-07 16:00] VITALS: BP 108/64
--- NOTE | 2020-09-07 17:19 | NUR ---
CHECK BLOOD SUGAR, 147, NO COVERAGE. NO SIGNS OF DISTRESS OR PAIN. WILL CONTINUE TO MONITOR.
--- NOTE | 2020-09-07 18:54 | NUR ---
CHECKED ON PATIENT, RESTING AND IN NO SIGN OF DISTRESS OR PAIN. WILL CONTINUE TO MONITOR.
--- NOTE | 2020-09-07 19:39 | NUR ---
RECEIVED REPORT FROM AM NURSE FOR CONTINUITY OF CARE. PATIENT ON BED RESTING. NO SIGNS OF DISTRESS. PICC LINE ON THE CRISTINA. ON BILATERAL WRIST RESTRAINT. WILL CONTINUE TO MONITOR.
--- NOTE | 2020-09-07 19:43 | NUR ---
ENDORSED CARE TO APRICOT PACKER RN FOR CONTINUITY OF CARE.
[2020-09-07 20:00] VITALS: BP 128/73
[2020-09-07] MEDS: FAMOTIDINE 20 MG/2 ML VIAL IV SCH (22:03)
--- NOTE | 2020-09-07 23:13 | NUR ---
UNABLE TO PUT PT ON BIPAP AT THIS TIME DUE TO PT BEING RESTRAIN.
[2020-09-08] VITALS: BP 111/74
[2020-09-08] MEDS: BLOOD GLUCOSE MONITORING 1 DEV DEV FS SCH ×5 (00:17→23:44)
[2020-09-08 04:00] VITALS: BP 111/58
[2020-09-08] MEDS: FUROSEMIDE 40 MG/4 ML VIAL IVP SCH ×3 (06:24→21:09)
--- NOTE | 2020-09-08 06:24 | NUR ---
ADMINISTERED MEDS PER MD ORDERED
[2020-09-08] MEDS: MIDODRINE 5 MG TAB PO SCH ×3 (06:33→17:59)
[2020-09-08 06:51] LABS: ANION GAP 16.3 (8-16); CARBON DIOXIDE 26.9 mmol/L (21-32); CHLORIDE 100 mmol/L (98-107); CREATININE 3.8 mg/dL (0.6-1.3); GLUCOSE 139 mg/dL (74-106); POTASSIUM 5.2 mmol/L (3.5-5.1); SODIUM SERUM 138 mmol/L (136-145)
[2020-09-08 06:54] LABS: BASOPHILS % (AUTO) 0.5 % (0.0-2.0); EOSINOPHILS # (AUTO) 0.2 K/uL (0-0.4); EOSINOPHILS % (AUTO) 2.5 % (0.0-4.0); HEMATOCRIT 33.1 % (36-52); HEMOGLOBIN 10.8 g/dL (12.0-18.0); LYMPHOCYTES % (AUTO) 25.7 % (20.5-51.1); MEAN CORPUSCULAR HEMOGLOBIN 32 pg (27-31); MEAN CORPUSCULAR HGB CONC 33 g/dL (33-37); MEAN CORPUSCULAR VOLUME 97.6 fL (80-94); MONOCYTES % (AUTO) 13.7 % (1.7-9.3); NEUTROPHILS # (AUTO) 4.4 K/uL (1.8-7.7); NEUTROPHILS % (AUTO) 57.6 % (42.2-75.2); RED BLOOD CELL COUNT(AUTO) 3.39 MIL/uL (4.20-6.10); WHITE BLOOD COUNT (AUTO) 7.6 K/uL (4.8-10.8)
[2020-09-08 07:16] LABS: UREA NITROGEN, BLOOD 77 mg/dL (7-18)
[2020-09-08 07:22] LABS: PLATELET COUNT (AUTO) 64 K/uL (140-450)
--- NOTE | 2020-09-08 07:25 | NUR ---
ENDORSED TO AM NURSE FOR CONTINUITY OF CARE. PATIENT STABLE.
--- NOTE | 2020-09-08 07:26 | NUR ---
RECEIVED REPORT FROM DIALYSIS RN NURSE. PATIENT LYING DOWN IN BED. NO DISTRESS NOTED. ON BILATERAL SOFT WRIST RESTRAINTS DUE TO PULLING OUT PICC LINE YESTERDAY. HAS BILATERAL LE OPEN CELLULITIS, DRESSINGS DRY AND INTACT. HERNANDEZ CATHETER IN PLACE. CRISTINA PICC LINE INTACT, PATENT, AND ON SALINE LOCK. SAFETY MEASURES IN PLACE, CALL LIGHT WITHIN REACH. WILL CONTINUE TO MONITOR.
[2020-09-08 08:00] VITALS: BP 111/58
[2020-09-08] MEDS ORDERED: SODIUM POLYSTYRENE 15 GM/60 ML UDBTL PO SCH (09:45)
--- NOTE | 2020-09-08 10:10 | NUR ---
DR. BURRELL, MULTIMEDIA EDITOR, CALLED AND WANTED TO PERFORM BLADDER SCAN AND IRRIGATE THE HERNANDEZ CATHETER. BLADDER SCAN SHOWED MORE THAN 999ML FLUID, BUT NOT SURE IF ASCITIC FLUID. IRRIGATED HERNANDEZ CATHETER, ABLE TO PUSH STERILE WATER INTO HERNANDEZ WITHOUT PROBLEMS, BUT NO SOLUTION COMES BACK OUT TO HERNANDEZ CATHETER EVEN WHEN ASPIRATING WITH IRRIGATION SYRINGE. NOTIFIED DR. FORMAN REGARDING FINDINGS. PER DR. FORMAN, ORDER US ABDOMEN. WILL CONTINUE TO MONITOR.
[2020-09-08 12:00] VITALS: BP 111/58
[2020-09-08] MEDS: INSULIN LISPRO SLIDING SCALE 100 UNITS/ML VIAL SUBQ PRN ×2 (13:11→17:59)
--- NOTE | 2020-09-08 13:12 | NUR ---
ASSISTED TOILET PRODUCTS MOLDER IN CLEANING AND REPOSITIONING PATIENT. PATIENT IS CONFUSED. SCHEDULED MEDICATIONS DU GIVEN. WILL CONTINUE TO MONITOR.
[2020-09-08 16:00] VITALS: BP 125/90
[2020-09-08] MEDS: ALBUTEROL SULFATE/IPRATROPIU 3 ML SOL IH PRN (16:13)
--- NOTE | 2020-09-08 17:59 | NUR ---
SCHEDULED MEDICATIONS DUE GIVEN. WILL CONTINUE TO MONITOR.
--- NOTE | 2020-09-08 19:20 | NUR ---
RECEIVED REPORT FROM AM NURSE, PT ON BED IN SEMI FOWLERS POSITION ROOM AIR, NO SIGNS OF DISTRESS NOTED AT THIS TIME. HERNANDEZ CATHETER INTACT CONNECTED TO DRAINING BAG. WILL CONTINUE TO MONITOR.
[2020-09-08 20:00] VITALS: BP 138/87
[2020-09-08] MEDS: FAMOTIDINE 20 MG/2 ML VIAL IV SCH (21:09)
--- NOTE | 2020-09-08 21:15 | NUR ---
ADMINISTERED SCHEDULED MEDS ORDERED BY .
--- NOTE | 2020-09-08 21:24 | NUR ---
Patient has order for bipap but is still requiring restraints due to pulling at lines. Hospital policy and guidelines for bipap require patient to not be in restraints due to safety concerns. Nursing has been informed that restraints are against bipap use and patient cannot wear at this time.
[2020-09-08] MEDS: LORazepam 2 MG/ML VIAL IVP PRN (23:42)
--- NOTE | 2020-09-08 23:44 | NUR ---
PATIENT STARTED SCREAMING ATIVAN 0.5 MG GIVEN IVP.
[2020-09-09] VITALS: BP 152/76
[2020-09-09 04:00] VITALS: BP 123/72
[2020-09-09] MEDS: FUROSEMIDE 40 MG/4 ML VIAL IVP SCH (05:55)
[2020-09-09] MEDS: BLOOD GLUCOSE MONITORING 1 DEV DEV FS SCH ×3 (06:08→17:37)
[2020-09-09 06:10] LABS: BASOPHILS # (AUTO) 0.1 K/uL (0.00-0.22); BASOPHILS % (AUTO) 0.8 % (0.0-2.0); EOSINOPHILS # (AUTO) 0.1 K/uL (0-0.4); EOSINOPHILS % (AUTO) 1.7 % (0.0-4.0); HEMATOCRIT 34.5 % (36-52); HEMOGLOBIN 11.1 g/dL (12.0-18.0); LYMPHOCYTES # (AUTO) 1.7 K/uL (2.0-11.5); LYMPHOCYTES % (AUTO) 22.9 % (20.5-51.1); MEAN CORPUSCULAR HEMOGLOBIN 32 pg (27-31); MEAN CORPUSCULAR HGB CONC 32 g/dL (33-37); MEAN CORPUSCULAR VOLUME 98.4 fL (80-94); MONOCYTES # (AUTO) 1.3 K/uL (0.8-1.0); MONOCYTES % (AUTO) 17.2 % (1.7-9.3); NEUTROPHILS # (AUTO) 4.3 K/uL (1.8-7.7); NEUTROPHILS % (AUTO) 57.4 % (42.2-75.2); PLATELET COUNT (AUTO) 63 K/uL (140-450); RED BLOOD CELL COUNT(AUTO) 3.51 MIL/uL (4.20-6.10); RED CELL DISTRIBUTION WIDTH 21.3 % (11.6-13.7); WHITE BLOOD COUNT (AUTO) 7.4 K/uL (4.8-10.8)
[2020-09-09] MEDS: MIDODRINE 5 MG TAB PO SCH (06:12)
[2020-09-09] MEDS ORDERED: NACL 0.9% 1,000 ML IV SCH (06:25)
[2020-09-09 06:56] LABS: ANION GAP 17.5 (8-16); CARBON DIOXIDE 27.5 mmol/L (21-32); CHLORIDE 100 mmol/L (98-107); GLUCOSE 135 mg/dL (74-106); SODIUM SERUM 140 mmol/L (136-145)
[2020-09-09 06:57] LABS: MAGNESIUM 2.4 mg/dL (1.8-2.4); PHOSPHORUS 5.6 mg/dL (2.5-4.9)
[2020-09-09 07:08] LABS: CREATININE 4.3 mg/dL (0.6-1.3)
[2020-09-09 07:13] LABS: UREA NITROGEN, BLOOD 86 mg/dL (7-18)
--- NOTE | 2020-09-09 07:13 | NUR ---
RECEIVED REPORT OF CRITICAL LAB RESULTS, TEXTED DR RICHAR BURRELL AT [id number] AWAITING FOR RESPONSE. ENDORSED TO THE AM NURSE TO FOLLOW UP.
--- NOTE | 2020-09-09 07:45 | NUR ---
ENDORSED TO AM NURSE FOR CONTINUITY OF CARE. PATIENT STABLE.
--- NOTE | 2020-09-09 07:50 | NUR ---
RECEIVED REPORT FROM HOT MOLDER RN FOR CONTINUITY OF CARE. PATIENT ASLEEP IN BED IN SUPINE POSITION ON 2L OXYGEN VIA NC. RIGHT UPPER PICC LINE SALINE LOCK. HERNANDEZ CATHETER IN PLACE, WILL BLOODY DARK URINE, 50ML CC OUTPUT DURING HOT MOLDER, PER HOT MOLDER RN. CRITICAL LAB BUN 86, CR 4.[address] BURRELL, PER HOT MOLDER CHARGE EDWIN. BILATERAL SOFT RESTRAINT, SAFETY MEASURES IN PLACE. WILL CONTINUE TO MONITOR.
[2020-09-09 08:00] VITALS: BP 134/75
--- NOTE | 2020-09-09 10:36 | NUR ---
PT ASLEEP AT THIS TIME NOT IN ANY DISTRESS NOT SOB. BS CLEAR SLIGHTLY DIMINISHED IN BASES.
[2020-09-09 12:00] VITALS: BP 121/67
--- NOTE | 2020-09-09 13:41 | NUR ---
09/09/20 RD FOLLOW UP COMPLETED PLEASE REFER TO NUTRITION ASSESSMENT UNDER CARE ACTIVITY FOR ESTIMATED NUTRITIONAL NEEDS. 1.CONTINUE MECHANICAL SOFT DIET WITH NECTAR THICK LIQUIDS 2.CONTINUE ENSURE BID 3.CONTINUE TO PROVIDE ASSISTANCE WITH MEALS AND ENCOURAGE PO INTAKE OVER 50% 4. RD TO FOLLOW-UP 2-3 DAYS, HIGH RISK LIZZETH TENA, RD
[2020-09-09 16:00] VITALS: BP 128/73
--- NOTE | 2020-09-09 17:38 | NUR ---
BLOOD SUGAR CHECKED 129, NO INSULIN COVERAGE NEEDED. SAFETY MEASURES IN PLACE, WILL CONTINUE TO MONITOR.
--- NOTE | 2020-09-09 19:20 | NUR ---
ENDORSED PATIENT TO SECTION CHIEF RN FOR CONTINUITY OF CARE. PATIENT IN STABLE CONDITION.
--- NOTE | 2020-09-09 19:20 | NUR ---
RECEIVED PATIENT FROM AM NURSE FOR CONTINUITY OF CARE. PATIENT IS MONGOLIAN SPEAKING, A/A/O X1-2. RESPIRATORY EVEN AND UNLABORED, ON 2L OXYGEN NC, O2 SAT 100%, NO SIGN OF DISTRESS NOTED. SKIN WARM, DRY, NON DIAPHORETIC. BILATERAL LOWER EXTREMITIES SKIN TEAR, DRESSING INTACT, DRY AND CLEAN. SWOLLEN PITTING EDEMA NOTED BILATERAL HANDS. PICC LINE DOUBLE LUMENS NOTED RIGHT UPPER ARM, SALINE LOCK, INTACT AND PATENT. SOFT RESTRAINT NOTED ON BILATERAL WRIST. HERNANDEZ IN PLACE WITH MINIMAL URINE, DARK [place] COLOR. PATIENT DENIES ANY PAIN. PLAN OF CARE DISCUSSED. PRECAUTION IN PLACE. CALL LIGHT WITHIN REACH. WILL CONTINUE TO MONITOR.
[2020-09-09 20:00] VITALS: BP 127/68
[2020-09-09] MEDS: FAMOTIDINE 20 MG/2 ML VIAL IV SCH (20:40)
--- NOTE | 2020-09-09 20:40 | NUR ---
SCHEDULE MEDICATION GIVEN WITH EDUCATION. PATIENT IS AWAKE, NO SIGN OF RESPIRATORY DISTRESS NOTED, O2 SAT 99%. PATIENT TOLERATED WELL. PRECAUTION IN PLACE. CALL LIGHT WITHIN REACH. WILL CONTINUE TO MONITOR.
--- NOTE | 2020-09-09 22:00 | NUR ---
ROUND CHECK. RELEASE SOFT WRIST TRAIN 15 MINS. PATIENT ATTEMPTS TO REMOVE THE EQUIPMENT. PATIENT IS AWAKE, NO RESPIRATORY DISTRESS NOTED. O2 SAT 99%. NO SIGN OF IMPAIR CIRCULATION. PRECAUTION IN PLACE. WILL CONTINUE TO MONITOR.
[2020-09-10] VITALS: BP 132/79
--- NOTE | 2020-09-10 | NUR ---
BLOOD SUGAR CHECK 113. NO INSULIN NEEDS TO COVER. PATIENT IS RESTING IN BED. NO SIGN OF RESPIRATORY DISTRESS NOTED. PRECAUTION IN PLACE. CALL LIGHT WITHIN REACH. WILL CONTINUE TO MONITOR.
[2020-09-10] MEDS: BLOOD GLUCOSE MONITORING 1 DEV DEV FS SCH ×4 (00:37→17:51)
--- NOTE | 2020-09-10 02:00 | NUR ---
ROUND CHECK. PATIENT IS SLEEPING, SCREAMING WHILE SLEEP. NO SIGN OF DISTRESS NOTED. O2 SAT 98%. PRECAUTION IN PLACE. CALL LIGHT WITHIN REACH. WILL CONTINUE TO MONITOR.
[2020-09-10 04:00] VITALS: BP 120/74
--- NOTE | 2020-09-10 04:00 | NUR ---
ROUND CHECK. PATIENT IS SLEEPING, AROUSABLE TO VOICE. NO SIGN OF RESPIRATORY DISTRESS NOTED. PRECAUTION IN PLACE. WILL CONTINUE TO MONITOR.
--- NOTE | 2020-09-10 05:48 | NUR ---
BLOOD SUGAR 124, NO INSULIN NEED TO COVER. PATIENT IS NO SIGN OF DISTRESS. WILL CONTINUE TO MONITOR.
[2020-09-10 06:10] LABS: BASOPHILS # (AUTO) 0.1 K/uL (0.00-0.22); BASOPHILS % (AUTO) 0.8 % (0.0-2.0); EOSINOPHILS # (AUTO) 0.2 K/uL (0-0.4); EOSINOPHILS % (AUTO) 2.1 % (0.0-4.0); HEMOGLOBIN 11.1 g/dL (12.0-18.0); LYMPHOCYTES # (AUTO) 2.1 K/uL (2.0-11.5); LYMPHOCYTES % (AUTO) 24.2 % (20.5-51.1); MEAN CORPUSCULAR HEMOGLOBIN 32 pg (27-31); MEAN CORPUSCULAR HGB CONC 33 g/dL (33-37); MEAN CORPUSCULAR VOLUME 97.3 fL (80-94); MONOCYTES # (AUTO) 1.1 K/uL (0.8-1.0); MONOCYTES % (AUTO) 12.4 % (1.7-9.3); NEUTROPHILS # (AUTO) 5.1 K/uL (1.8-7.7); NEUTROPHILS % (AUTO) 60.5 % (42.2-75.2); RED BLOOD CELL COUNT(AUTO) 3.49 MIL/uL (4.20-6.10); RED CELL DISTRIBUTION WIDTH 22.1 % (11.6-13.7); WHITE BLOOD COUNT (AUTO) 8.5 K/uL (4.8-10.8)
[2020-09-10 06:11] LABS: ANION GAP 15.4 (8-16); CHLORIDE 100 mmol/L (98-107); GLUCOSE 129 mg/dL (74-106); POTASSIUM 5.4 mmol/L (3.5-5.1); SODIUM SERUM 137 mmol/L (136-145)
[2020-09-10 06:13] LABS: UREA NITROGEN, BLOOD 85 mg/dL (7-18)
[2020-09-10 06:14] LABS: CREATININE 4.8 mg/dL (0.6-1.3); MAGNESIUM 2.4 mg/dL (1.8-2.4); PHOSPHORUS 6.1 mg/dL (2.5-4.9)
[2020-09-10 06:18] LABS: PLATELET COUNT (AUTO) 65 K/uL (140-450)
--- NOTE | 2020-09-10 06:18 | NUR ---
REPORT DR FORMAN PATIENT'S CRITICAL LAB, BUN 85, CREATININE 4.8. DR CORDERO. NO CHANGE IN ORDER.
--- NOTE | 2020-09-10 07:30 | NUR ---
ENDORSED PATIENT TO AM NURSE FOR CONTINUITY OF CARE. PATIENT IS STABLE.
--- NOTE | 2020-09-10 07:35 | NUR ---
RECEIVED BEDSIDE ENDORSEMENT FROM NIGHTSILFT NURSE FOR CONTINUITY OF CARE.
[2020-09-10 08:00] VITALS: BP 116/72
--- NOTE | 2020-09-10 08:00 | NUR ---
PATIENT ROUNDING PERFORMED. PATIENT RESTING IN PAIN. DOES NOT APPEAR TO BE AGITATED. REMOVED RESTRAINTS PATIENT IS CALM AND NOT PULLING ON LINES. SAFETY MEASURES IN PLACE. WILL CONTINUE TO MONITOR.
[2020-09-10 08:08] LABS: HEPATITIS A ANTIBODY IGM Negative (Negative); HEPATITIS B CORE AB TOTAL Negative (Negative); HEPATITIS B SURFACE ANTIBODY Non Reactive (.); HEPATITIS B SURFACE ANTIGEN Negative (Negative)
--- NOTE | 2020-09-10 09:18 | NUR ---
DESPITE MULTIPLE ATTEMPTS, UNABLE TO OBTAIN ABG DUE TO EDEMA. RN AND CHARGE NURSE AWARE. PT IS ON ROOM AIR WITH SPO2 100%.
--- NOTE | 2020-09-10 10:09 | NUR ---
PATIENT ROUNDING PERFORMED. PATIENT RESTING COMFORTABLY IN BED. WAKES UP FROM TIME TO TIME. NO SIGNS OF AGITATION NOTED. RESTRAINTS REMAIN OFF. SAFETY MEASURES IN PLACE. WILL CONTINUE TO MONITOR.
[2020-09-10 12:00] VITALS: BP 120/70
[2020-09-10] MEDS: CALCIUM CARBONATE 500 MG TAB.CHEW PO SCH ×2 (12:23→17:51)
--- NOTE | 2020-09-10 12:45 | NUR ---
ADMINISTERED PRESCRIBED MEDS PER MD ORDER. PATIENT TOLERATED WELL. MEDICATION EDUCATION REINFORCEMENT NEEDED. SAFETY MEASURES IN PLACE. WILL CONTINUE TO MONITOR.
[2020-09-10 16:00] VITALS: BP 126/67
--- NOTE | 2020-09-10 19:11 | NUR ---
PROVIDED BEDSIDE ENDORSEMENT TO NIGHTSHIFT NURSE FOR CONTINUITY OF CARE.
--- NOTE | 2020-09-10 19:12 | NUR ---
RECEIVED PATIENT FROM NURSE FOR CONTINUITY OF CARE. PATIENT IS YORUBA/ITALIAN SPEAKING, A/A/O X1-2. PATIENT IS ON HEMODIALYSIS, DIALYSIS NURSE AT BEDSIDE. RESPIRATORY EVEN AND UNLABORED, ON ROOM AIR, O2 SAT 90%, NO SIGN OF DISTRESS NOTED. SKIN WARM, DRY, NON DIAPHORETIC, EDEMA PITTING NOTED ON BILATERAL UPPER EXTREMITIES AND BILATERAL LOWER EXTREMITIES. SKIN TEARS ON BILATERAL LOWER EXTREMITIES, DRESSING IN PLACE, DRY AND CLEAN. RIGHT IJ NICOLE CATH IN PLACE FOR HD. PICC LINE NOTED ON RIGHT UPPER ARM, SALINE LOCK, INTACT AND PATENT. HERNANDEZ IN PLACE, NO URINE OUTPUT. SOFT WRIST RESTRAINT NOTED. PATIENT DENIES ANY PAIN. PLAN OF CARE DISCUSSED. PRECAUTION IN PLACE. CALL LIGHT WITHIN REACH. WILL CONTINUE TO MONITOR. Addendum: 09/10/20 at 2103 by Shon Armstrong RN RN SOFT WRIST RESTRAINT ORDER IN PLACE, PATIENT CURRENTLY OFF RESTRAINTS OF 0730 09/10/20. PATIENT IS RESTING, CALM AND COOPERATIVE. NO SIGN OF DISTRESS NOTED. CALL LIGHT WITHIN REACH. WILL CONTINUE TO MONITOR PATIENT'S BEHAVIOR.
--- NOTE | 2020-09-10 19:27 | NUR ---
HEMODIALYSIS COMPLETED WITH 2 L OUTPUT. PATIENT IS STABLE, NO SIGN OF DISTRESS NOTED. PRECAUTION IN PLACE. CALL LIGHT WITHIN REACH. WILL CONTINUE TO MONITOR.
[2020-09-10 20:00] VITALS: BP 128/75
--- NOTE | 2020-09-10 20:01 | NUR ---
MD WOULD LIKE PT TO WEAR BIPAP AT NIGHT BUT PT IS REQUIRING RESTRAINTS AND CANNOT WEAR BIPAP WHILE IN RESTRAINTS DUE TO SAFETY POLICY WITH BIPAP.
[2020-09-10] MEDS: FAMOTIDINE 20 MG/2 ML VIAL IV SCH (20:37)
--- NOTE | 2020-09-10 20:37 | NUR ---
SCHEDULE MEDICATION GIVEN WITH EDUCATION. PATIENT VERBALIZED UNDERSTANDING. PATIENT TOLERATED WELL. NO SIGN OF DISTRESS NOTED. O2 SAT 97%. PRECAUTION IN PLACE. CALL LIGHT WITHIN REACH. WILL CONTINUE TO MONITOR.
--- NOTE | 2020-09-10 22:00 | NUR ---
PATIENT IS SLEEPING, CHEST RISE AND FALL NOTED. NO SIGN OF RESPIRATORY DISTRESS, O2 SAT 96%. CALL LIGHT WITHIN REACH. PRECAUTION IN PLACE. WILL CONTINUE TO MONITOR.
[2020-09-11] VITALS: BP 114/69
[2020-09-11] MEDS: BLOOD GLUCOSE MONITORING 1 DEV DEV FS SCH ×4 (00:03→18:02)
--- NOTE | 2020-09-11 00:04 | NUR ---
BLOOD SUGAR CHECK 120, NO INSULIN NEED. PATIENT IS SLEEPING, AROUSABLE TO VOICE. NO SIGN OF DISTRESS NOTED, O2 SAT 97%. PRECAUTION IN PLACE. CALL LIGHT WITHIN REACH. WILL CONTINUE TO MONITOR.
--- NOTE | 2020-09-11 02:00 | NUR ---
PATIENT IS SLEEPING, CHEST RISE AND FALL NOTED. O2 SAT 98%, NO SIGN OF RESPIRATORY DISTRESS NOTED. PRECAUTION IN PLACE. CALL LIGHT WITHIN REACH. WILL CONTINUE TO MONITOR.
[2020-09-11 04:00] VITALS: BP 120/68
--- NOTE | 2020-09-11 04:00 | NUR ---
PATIENT IS SLEEPING, AROUSABLE TO VOICE. NO SIGN OF DISTRESS NOTED. PRECAUTION IN PLACE. CALL LIGHT WITHIN REACH. WILL CONTINUE TO MONITOR.
--- NOTE | 2020-09-11 05:47 | NUR ---
CONTACTED DR FLEMING REGARDING PATIENT IS CALM AND COOPERATIVE. PER MD, CONTINUE TO RENEW SOFT WRIST RESTRAINT ORDER. WILL FOLLOW ORDER.
--- NOTE | 2020-09-11 06:07 | NUR ---
BLOOD SUGAR CHECK 103, NO INSULIN COVERAGE NEEDED.
[2020-09-11 06:52] LABS: ANION GAP 15.2 (8-16); CARBON DIOXIDE 28.7 mmol/L (21-32); CHLORIDE 99 mmol/L (98-107); GLUCOSE 106 mg/dL (74-106); POTASSIUM 4.9 mmol/L (3.5-5.1); SODIUM SERUM 138 mmol/L (136-145); UREA NITROGEN, BLOOD 57 mg/dL (7-18)
[2020-09-11 07:03] LABS: BASOPHILS % (AUTO) 0.3 % (0.0-2.0); EOSINOPHILS # (AUTO) 0.1 K/uL (0-0.4); EOSINOPHILS % (AUTO) 1.4 % (0.0-4.0); HEMATOCRIT 32.3 % (36-52); HEMOGLOBIN 10.6 g/dL (12.0-18.0); LYMPHOCYTES # (AUTO) 1.7 K/uL (2.0-11.5); LYMPHOCYTES % (AUTO) 16.9 % (20.5-51.1); MEAN CORPUSCULAR HEMOGLOBIN 32 pg (27-31); MEAN CORPUSCULAR HGB CONC 33 g/dL (33-37); MONOCYTES # (AUTO) 1.1 K/uL (0.8-1.0); MONOCYTES % (AUTO) 11.5 % (1.7-9.3); NEUTROPHILS # (AUTO) 6.8 K/uL (1.8-7.7); NEUTROPHILS % (AUTO) 69.9 % (42.2-75.2); PLATELET COUNT (AUTO) 46 K/uL (140-450); RED BLOOD CELL COUNT(AUTO) 3.33 MIL/uL (4.20-6.10); RED CELL DISTRIBUTION WIDTH 21.4 % (11.6-13.7); WHITE BLOOD COUNT (AUTO) 9.7 K/uL (4.8-10.8)
--- NOTE | 2020-09-11 07:15 | NUR ---
ENDORSED PATIENT TO AM NURSE FOR CONTINUITY OF CARE. PATIENT IS STABLE.
--- NOTE | 2020-09-11 07:16 | NUR ---
RECEIVED BEDSIDE REPORT FROM GUIDE FOREIGN TOUR NURSE GALILEA FOR CONTINUITY OF CARE. PATIENT AWAKE AND RESTING ON BED AT THIS TIME. PATIENT IS ALERT ORIENT TO NAME AND PLACE ONLY, SPEAKS SOME SPANISH, ABLE TO MAKE NEEDS KNOWN, FOLLOW SOME COMMANDS. RESPIRATION EVEN, UNLABORED ON ROOM AIR, SPO2 95% AT THIS TIME, LUNG SOUNDS DIMINISHED UPON AUSCULTATION. NO SIGNS OF ACUTE DISTRESS NOTED. IV ON RIGHT UPPER ARM, PICC LINE, CLEAN AND INTACT, SALINE LOCKED. [facility] NICOLE CATH IN PL[facility]. SKIN CLEAN, DRY, EDEMATOUS ON BILATERAL UPPER AND LOWER EXTREMITY ABDOMEN SOFT, NON-DISTENDED. TELE MONITOR IN PLACE. SAFETY MEASURES IN PLACE. BED IN LOW POSITION, AND CALL LIGHT WITHIN REACH. FALL RISK PROTOCOL IN PLACE, BED ALARM ACTIVATED. INSTRUCTED PATIENT NOT TO REMOVE ANY LINE/TUBE AND USE THE CALL LIGHT FOR ANY ASSISTANCE, REINFORCEMENT NEEDED DUE TO LACK OF MOTIVATION.
--- NOTE | 2020-09-11 07:30 | NUR ---
SPOKE TO ACCOUNT RETENTION REPRESENTATIVE ROQUE, NOTIFIED PATIENT HAS AN ORDER FOR HD TODAY, ROQUE MOHR WAS AWARE.
--- NOTE | 2020-09-11 07:59 | NUR ---
PATIENT REQUESTED TO CALL DAUGHTER RAE, CALL 2X, NO ANSWER, LEFT BRIEF MESSAGE TO RETURN CALL. PATIENT IS RESTING ON BED AT THIS TIME. SAFETY MEASURES IN PLACE.
[2020-09-11 08:00] VITALS: BP 113/73
[2020-09-11] MEDS: CALCIUM CARBONATE 500 MG TAB.CHEW PO SCH ×3 (08:05→17:14)
--- NOTE | 2020-09-11 08:06 | NUR ---
SCHEDULED AM MED TUMS GIVEN PER MD ORDER, MED EDUCATION PROVIDED, PATIENT VERBALIZED OK. PATIENT TOLERATED MED WELL. PATIENT AWAKE AND RESTING ON BED. NO SIGNS OF ACUTE DISTRESS NOTED. HERNANDEZ IN PLACE, DRAINING WITH GRAVITY, MINIMAL YELLOW URINE IN BAG NOTED. SAFETY MEASURES IN PLACE. BED ALARM ACTIVATED.
--- NOTE | 2020-09-11 08:32 | NUR ---
RECEIVED CALL BACK FROM PATIENT'S DAUGHTER RAE, UPDATED HER WITH PATIENT'S CURRENT CONDITION, PLAN OF CARE, ANSWERED ALL HER QUESTIONS. PATIENT IS TALKING ON THE PHONE WITH DAUGHTER AT THIS TIME. NO SIGNS OF ACUTE DISTRESS NOTED. SAFETY MEASURES IN PLACE.
--- NOTE | 2020-09-11 08:45 | NUR ---
CRITICAL LAB CR 4.7, TRENDING DOWN, HD ORDER FOR TODAY, NOT REPORTED. DOCUMENTED ON CRITICAL LAB.
[2020-09-11 08:48] LABS: CREATININE 4.7 mg/dL (0.6-1.3)
--- NOTE | 2020-09-11 10:05 | NUR ---
PATIENT IS RESTING ON BED. DENIED PAIN, SOB, AND ANY DISTRESS. SAFETY MEASURES IN PLACE.
--- NOTE | 2020-09-11 11:16 | NUR ---
WOUND CARE RE-EVALUATION NOTE: PT. IS ALERT, AWAKE MULTIPLE ECCHYMOSIS TO ARMS AND TRUNK OF BODY FROM BLOOD DRAWS AND S/P THORACENTESIS. SKIN INTACT. RLQ SUTURES IN PLACE AND SECURED. BILATERAL LOWER LEGS WITH MULTIPLE SKIN TEARS IMPROVING WITH LARGEST TO LEFT CALF 3X3CM WOUND BED MOIST, PINK, NO ODOR, RAQULE-WOUND SKIN INTACT. POC DISCUSSED WITH PRIMARY RN, WILL CONTINUE SAME INTERVENTIONS
[2020-09-11 12:00] VITALS: BP 120/73
--- NOTE | 2020-09-11 12:08 | NUR ---
BLOOD GLUCOSE 135, NO COVERAGE. ADMINISTERED SCHEDULE MED PER MD ORDER, MED EDUCATION PROVIDED, PATIENT TOLERATED WELL. PATIENT AWAKE AND WATCHING TV ON BED COMFORTABLY. SAFETY MEASURES IN PLACE.
--- NOTE | 2020-09-11 12:39 | NUR ---
WORKER'S COMPENSATION CLAIMS EXAMINER IS BY BEDSIDE AND GETTING PATIENT READY FOR HD.
--- NOTE | 2020-09-11 13:03 | NUR ---
10,000 HEPARIN PROVIDED TO SURGICAL TECH FOR PORTS FLUSH, AND CENTRAL LINE DRESSING PROVIDED. PATIENT IS IN HD. NO SIGNS OF ACUTE DISTRESS NOTED. SAFETY MEASURES IN PLACE.
--- NOTE | 2020-09-11 14:05 | NUR ---
RECEIVED CALL FROM DAUGHTER RAE, INFORMED THAT PATIENT IS DOING HD NOW, UPDATED RAE WITH PATIENT'S CONDITION AND ANSWERED ALL HER QUESTIONS, RAE WAS AWARE.
--- NOTE | 2020-09-11 14:28 | NUR ---
09/11/20 RD FOLLOW UP COMPLETED PLEASE REFER TO NUTRITION ASSESSMENT UNDER CARE ACTIVITY FOR ESTIMATED NUTRITIONAL NEEDS. 1. CONTINUE MECHANICAL SOFT DIET WITH NECTAR THICK LIQUIDS 2. RECOMMEND NEPRO BID AND 80GM OF PROTEIN/DAY 3. CONTINUE TO PROVIDE ASSISTANCE WITH MEALS AND ENCOURAGE PO INTAKE OVER 75% 4. RD TO FOLLOW-UP 2-3 DAYS, HIGH RISK LIZZETH TENA, RD
--- NOTE | 2020-09-11 15:12 | NUR ---
DYLAN THURMAN COLLECTED AND SENT TO LAB. RECEIVED ORDERS TUNNELED DIALYSIS CATHETER FOR AND NPO AFTER MIDNIGHT, WILL INPUT ORDERS PER DR LAZAR ORDER.
[2020-09-11 16:00] VITALS: BP 117/69
--- NOTE | 2020-09-11 17:14 | NUR ---
SCHEDULED TUMS GIVEN, PATIENT AWAKE AND WATCHING TV ON BED AT THIS TIME. NO SIGNS OF ACUTE DISTRESS NOTED. SAFETY MEASURES IN PLACE.
--- NOTE | 2020-09-11 17:24 | NUR ---
UNABLE TO OBTAIN ABG, PREVIOUSLY ATTEMPTED YESTERDAY. [facility] TO REPORT CO2 TO DR NGO. [facility] DOES NOT QUALIFY PT FOR HOME BIPAP. PER DR NGO, CANCEL ABG ORDER.
--- NOTE | 2020-09-11 18:05 | NUR ---
BLOOD GLUCOSE 140, NO COVERAGE NEEDED. PATIENT IS EATING DINNER ON BED AT THIS TIME. NO SIGNS OF ACUTE DISTRESS NOTED. SAFETY MEASURES IN PLACE.
--- NOTE | 2020-09-11 18:51 | NUR ---
DAUGHTER RAE IS VISITING PATIENT AT BEDSIDE. PICKED UP YELLOW ENVELOPE FROM [employer].
--- NOTE | 2020-09-11 19:33 | NUR ---
ENDORSED PATIENT TO NIGHT NURSE AHSAN FOR CONTINUITY OF CARE. DAUGHTER RAE IS AT BEDSIDE TALKING TO PATIENT. AHSAN WAS AWARE THAT PATIENT IS NPO AFTER MIDNIGHT AND CONSENT FOR TUNNELED CATHETER PLACEMENT IS AWAITING FOR DR LAZAR TO SPEAK WITH DAUGHTER. SIGN NPO AFTER MIDNIGHT POSTED.
[2020-09-11 20:00] VITALS: BP 115/70
[2020-09-11] MEDS: FAMOTIDINE 20 MG/2 ML VIAL IV SCH (21:08)
--- NOTE | 2020-09-11 21:11 | NUR ---
SCHEDULED MEDICATION ADMINISTERED PER MD ORDERED.
[2020-09-11] MEDS: LORazepam 2 MG/ML VIAL IVP PRN (21:54)
--- NOTE | 2020-09-11 21:57 | NUR ---
PATIENT RESTLESS, ATIVAN PRN GIVEN.
[2020-09-12] VITALS: BP 115/61
[2020-09-12] MEDS: BLOOD GLUCOSE MONITORING 1 DEV DEV FS SCH ×4 (00:04→18:52)
--- NOTE | 2020-09-12 03:49 | NUR ---
MADE ROUNDS , PATIENT SLEEPING NO SIGNS OF DISTRESS.
[2020-09-12 04:00] VITALS: BP 138/80
[2020-09-12 06:43] LABS: ANION GAP 17.1 (8-16); CARBON DIOXIDE 25.3 mmol/L (21-32); CHLORIDE 98 mmol/L (98-107); GLUCOSE 154 mg/dL (74-106); POTASSIUM 5.4 mmol/L (3.5-5.1); SODIUM SERUM 135 mmol/L (136-145)
[2020-09-12 06:54] LABS: ALBUMIN 2.9 g/dL (3.4-5.0); ANION GAP 20.9 (8-16); ASPARTATE AMINOTRANSFERASE 20 U/L (15-37); CARBON DIOXIDE 25.5 mmol/L (21-32); CHLORIDE 97 mmol/L (98-107); GLUCOSE 151 mg/dL (74-106); PHOSPHORUS 5.7 mg/dL (2.5-4.9); POTASSIUM 5.4 mmol/L (3.5-5.1); SODIUM SERUM 138 mmol/L (136-145); TOTAL BILIRUBIN 1.5 mg/dL (0.0-1.0)
[2020-09-12 06:55] LABS: CREATININE 5.1 mg/dL (0.6-1.3); UREA NITROGEN, BLOOD 82 mg/dL (7-18)
[2020-09-12 06:58] LABS: UREA NITROGEN, BLOOD 82 mg/dL (7-18)
[2020-09-12 06:59] LABS: CREATININE 5.1 mg/dL (0.6-1.3)
--- NOTE | 2020-09-12 07:25 | NUR ---
ENDORSED TO AM NURSE FOR CONTINUITY OF CARE. PT STABLE.
--- NOTE | 2020-09-12 07:27 | NUR ---
RECEIVED BEDSIDE REPORT FROM BLOCK PRESS OPERATOR NURSE FOR CONTINUITY OF CARE. PATIENT AWAKE AND RESTING ON BED AT THIS TIME. PATIENT IS ALERT ORIENT TO NAME AND PLACE ONLY, ABLE TO MAKE NEEDS KNOWN, RESPIRATION EVEN, UNLABORED ON ON ROOM AIR, SPO2 95% AT THIS TIME. NO SIGNS OF ACUTE DISTRESS NOTED. IV ON RIGHT UPPER ARM, PICC LINE, CLEAN AND INTACT, SALINE LOCKED. RIJ NICOLE CATH IN PLACE. S/P HD 09/11 3L FLUID OUTPUT. SKIN CLEAN, DRY. EDEMATOUS ON BILATERAL UPPER AND LOWER EXTREMITY. PLAN OF CARE DISCUSSED. SAFETY MEASURES IN PLACE. BED IN LOW POSITION, AND CALL LIGHT WITHIN REACH.
[2020-09-12 08:00] VITALS: BP 135/73
[2020-09-12] MEDS: CALCIUM CARBONATE 500 MG TAB.CHEW PO SCH ×3 (08:00→17:20)
[2020-09-12] MEDS ORDERED: BUPIVACAINE MPF 0.25% 10 ML VIAL INJ ONE ×2 (08:56→09:40)
[2020-09-12] MEDS ORDERED: LIDOCAINE MPF 1% 10 ML ONE (08:56)
--- NOTE | 2020-09-12 09:10 | NUR ---
OR NURSES AT BEDSIDE TO TRANSFER PATIENT FOR HIS SCHEDULED TUNNEL CATH PLACEMENT PROCEDURE.
[2020-09-12] MEDS ORDERED: LIDOCAINE 1% 500 MG/50 ML VIAL ONE (09:40)
--- NOTE | 2020-09-12 10:46 | NUR ---
PATIENT COMPLETED PROCEDURE. TRANSFERRED BACK TO [facility]. PT IS STABLE. WILL ASSESS VITAL SIGNS. Addendum: 09/12/20 at 1706 by Nima Paul RN RN PATIENT HAS RIGHT UPPER CHEST TUNNEL HD CATH IN PLACE.
--- NOTE | 2020-09-12 11:04 | NUR ---
PATIENT FOUND ON SIMPLE MASK @ 3L, REMOVED SIMPLE MASK AND REPLACED WITH NC @ 2L, RN NOTIFIED
[2020-09-12 12:00] VITALS: BP 118/68
--- NOTE | 2020-09-12 12:30 | NUR ---
CHECKED ON PATIENT. PATIENT IS STABLE. NO DISTRESS NOTED. WILL CONTINUE TO MONITOR.
[2020-09-12] MEDS ORDERED: APIX5TAB PO (15:07)
[2020-09-12] MEDS ORDERED: PRO5 PO (15:07)
[2020-09-12 16:00] VITALS: BP 128/70
--- NOTE | 2020-09-12 16:11 | NUR ---
WAS NOTIFIED BY JACKSON DELGADO THAT PATIENT WILL BE TRANSFERR[place] [facility] [place] [facility]. PT IS GOING TO ROOM 51-B.
--- NOTE | 2020-09-12 17:05 | NUR ---
PLACED DISCHARGE ORDER. WILL CONTACT [facility] AND GIVE REPORT.
[2020-09-12 17:31] VITALS: BP 128/70
--- NOTE | 2020-09-12 17:51 | NUR ---
CONTACTED [facility] AND GAVE PATIENT REPORT TO LYNETTE BRADY. PATIENT WILL BE TRANSFERRED TO ROOM 51B UNDER DR. FLEMING AND [facility] WILL BE ARRIVING BETWEEN [phone].
--- NOTE | 2020-09-12 18:52 | NUR ---
BLOOD SUGAR CHECK IS 120. NO INSULIN COVERAGE NEEDED.
--- NOTE | 2020-09-12 19:15 | NUR ---
PATIENT WAS NOT ABLE TO SIGN DISCHARGE FORMS. REMOVED PICC LINE. TRANSPORT ARRIVED AND [place] [facility] [place] IN [place]. PATIENT WAS STABLE PRIOR TO DISCHARGE
== END 2020-09-12 19:20 | DRG 291 ==
LOC: MED 05:05 → MIC 08:51 → MTU 09-05 17:30
PROVIDERS: ADMIT Hospitalist; ATTEND Hospitalist
PROC: 5A09357 Assistance with Respiratory Ventilation, Less than 24 Consecutive Hours, Continuous Positive Airway Pressure (ICD-10-PCS; principal; 2020-09-02)
PROC: 5A09457 Assistance with Respiratory Ventilation, 24-96 Consecutive Hours, Continuous Positive Airway Pressure (ICD-10-PCS; 2020-09-02)
PROC: 0W9B3ZZ Drainage of Left Pleural Cavity, Percutaneous Approach (ICD-10-PCS; 2020-09-03)
PROC: 5A09357 Assistance with Respiratory Ventilation, Less than 24 Consecutive Hours, Continuous Positive Airway Pressure (ICD-10-PCS; 2020-09-05)
PROC: 30233N1 Transfusion of Nonautologous Red Blood Cells into Peripheral Vein, Percutaneous Approach (ICD-10-PCS; 2020-09-06)
PROC: 5A1D70Z Performance of Urinary Filtration, Intermittent, Less than 6 Hours Per Day (ICD-10-PCS; 2020-09-09)
PROC: 5A1D70Z Performance of Urinary Filtration, Intermittent, Less than 6 Hours Per Day (ICD-10-PCS; 2020-09-10)
PROC: 02H633Z Insertion of Infusion Device into Right Atrium, Percutaneous Approach (ICD-10-PCS; 2020-09-10)
PROC: B548ZZA Ultrasonography of Superior Vena Cava, Guidance (ICD-10-PCS; 2020-09-10)
PROC: 5A1D70Z Performance of Urinary Filtration, Intermittent, Less than 6 Hours Per Day (ICD-10-PCS; 2020-09-11)
PROC: 0JH63XZ Insertion of Tunneled Vascular Access Device into Chest Subcutaneous Tissue and Fascia, Percutaneous Approach (ICD-10-PCS; 2020-09-12)
PROC: 02HV33Z Insertion of Infusion Device into Superior Vena Cava, Percutaneous Approach (ICD-10-PCS; 2020-09-12)
PROC: B5181ZA Fluoroscopy of Superior Vena Cava using Low Osmolar Contrast, Guidance (ICD-10-PCS; 2020-09-12)
DX: I13.0 Hypertensive heart and chronic kidney disease with heart failure and stage 1 through stage 4 chronic kidney disease, or unspecified chronic kidney disease (principal); J96.21 Acute and chronic respiratory failure with hypoxia; G93.41 Metabolic encephalopathy; K76.7 Hepatorenal syndrome; I50.23 Acute on chronic systolic (congestive) heart failure; J90 Pleural effusion, not elsewhere classified; J44.1 Chronic obstructive pulmonary disease with (acute) exacerbation; N18.4 Chronic kidney disease, stage 4 (severe); N17.9 Acute kidney failure, unspecified; R18.8 Other ascites; I42.9 Cardiomyopathy, unspecified; E11.22 Type 2 diabetes mellitus with diabetic chronic kidney disease; R33.9 Retention of urine, unspecified; D69.6 Thrombocytopenia, unspecified; E11.65 Type 2 diabetes mellitus with hyperglycemia; R00.1 Bradycardia, unspecified; K72.90 Hepatic failure, unspecified without coma; E03.9 Hypothyroidism, unspecified; E78.5 Hyperlipidemia, unspecified; E87.5 Hyperkalemia; Z20.822 Contact with and (suspected) exposure to COVID-19
CPT/HCPCS: 36415; 36600; 51702; 71045; 76604; 76705; 76770; 76942; 80048; 80053; 81001; 82140; 82803; 82945; 82948; 83036; 83605; 83735; 83880; 84100; 84157; 84439; 84443; 84484; 85025; 85610; 85730; 86704; 86706; 86708; 86709; 86803; 86900; 86901; 87040; 87070; 87075; 87081; 87186; 87205; 87340; 87804; 89051; 92610; 92700; 93005; 94640; 94660; 96365; 96366; 96372; 96375; 97110; 97112; 97163-GP; 97530; 99291; 99292; C1894; J0461; J0610; J0696; J1265; J1644; J1815; J1940; J2001; J2060; J2543; J3475; J3480; J3490; J7030; J7060; P9035; P9046

== ENCOUNTER 2020-09-13 03:05 | Inpatient (IN) | payer OTHER, SELFPAY ==
[~2020-09-13] VITALS: Ht 172.7 cm; Wt 86.2 kg
[~2020-09-13 03:05] MED LIST changes: -ALBU0.0912 INH; -APIX5TAB PO; -ASPI-1205 PO; -FURO-570 PO; +FURO-571 PO; +LEVO0.155 PO; -LEVO0.173 PO; -SITA100T8 PO
--- NOTE | 2020-09-13 03:10 | NUR ---
PT [facility] BLS. TAKEN TO BED 10
--- NOTE | 2020-09-13 03:15 | NUR ---
Kaci swab collected.
--- NOTE | 2020-09-13 03:20 | NUR ---
received pt from EMS and placed to bed 10. placed on VS monitor. placed in 2lpm n/c. placed for comfort in semi fowlers position. pt in gown. 74 year old male with hx of CHF, Respiratory Failure, metabolic encepalopathy, COPD, ESRD on HD, hypothyroidism, TX biba from [facility] s/p Right upper chest maribeth cath dislodgement. per EMS, pt pulled out maribeth cath and started bleeding from site. bleeding controlled with sterile towel. pt is currently a/o x 1, gcs 14. bedbound. multiple pressure injury to RLE that is reinforced with foam bandage.
--- NOTE | 2020-09-13 03:23 | NUR ---
urine collected into specimen cup from perdomo drainage bag.
[2020-09-13 03:50] VITALS: BP 122/67
--- NOTE | 2020-09-13 04:11 | NUR ---
PT TAKEN TO CT
--- NOTE | 2020-09-13 04:23 | NUR ---
PT RETURN FROM CT
[2020-09-13 05:02] LABS: BASOPHILS % (AUTO) 0.5 % (0.0-2.0); EOSINOPHILS # (AUTO) 0.2 K/uL (0-0.4); EOSINOPHILS % (AUTO) 1.9 % (0.0-4.0); HEMATOCRIT 28.3 % (36-52); HEMOGLOBIN 9.3 g/dL (12.0-18.0); LYMPHOCYTES # (AUTO) 1.8 K/uL (2.0-11.5); LYMPHOCYTES % (AUTO) 21.5 % (20.5-51.1); MEAN CORPUSCULAR HEMOGLOBIN 32 pg (27-31); MEAN CORPUSCULAR HGB CONC 33 g/dL (33-37); MEAN CORPUSCULAR VOLUME 97.1 fL (80-94); MONOCYTES # (AUTO) 1.2 K/uL (0.8-1.0); MONOCYTES % (AUTO) 13.7 % (1.7-9.3); NEUTROPHILS # (AUTO) 5.3 K/uL (1.8-7.7); NEUTROPHILS % (AUTO) 62.4 % (42.2-75.2); PLATELET COUNT (AUTO) 44 K/uL (140-450); RED BLOOD CELL COUNT(AUTO) 2.92 MIL/uL (4.20-6.10); RED CELL DISTRIBUTION WIDTH 21.1 % (11.6-13.7); WHITE BLOOD COUNT (AUTO) 8.6 K/uL (4.8-10.8)
[2020-09-13 05:06] LABS: ALBUMIN 2.6 g/dL (3.4-5.0); ANION GAP 13.7 (8-16); ASPARTATE AMINOTRANSFERASE 26 U/L (15-37); CARBON DIOXIDE 29.4 mmol/L (21-32); CHLORIDE 99 mmol/L (98-107); GLUCOSE 131 mg/dL (74-106); SODIUM SERUM 136 mmol/L (136-145); TOTAL BILIRUBIN 1.4 mg/dL (0.0-1.0)
[2020-09-13 05:08] LABS: POTASSIUM 6.1 mmol/L (3.5-5.1)
[2020-09-13 05:09] LABS: CREATININE 5.8 mg/dL (0.6-1.3); UREA NITROGEN, BLOOD 68 mg/dL (7-18)
[2020-09-13 05:15] LABS: APPEARANCE,URINE CLEAR (CLEAR); BILIRUBIN,URINE 1+ (NEGATIVE); BLOOD, URINE 3+ (NEGATIVE); COLOR,URINE BROWN (YELLOW); LEUKOCYTE ESTERASE ,URINE 3+ (NEGATIVE); NITRITE, URINE NEGATIVE (NEGATIVE); PH,URINE 5.5 (5.0-9.0); UGLUCOSE NEGATIVE (NEGATIVE)
[2020-09-13 05:29] LABS: RBC,URINE TOO NUMEROUS TO COUN /HPF (0-5); WBC,URINE TOO MANY TO COUNT /HPF (0-5)
[2020-09-13 05:30] LABS: YEAST,URINE Many /HPF (None Seen)
[2020-09-13] MEDS ORDERED: cephALEXin 500 MG CAP PO ONE (05:55)
[2020-09-13] MEDS ORDERED: INSULIN REGULAR, HUMAN 100 UNIT/ML VIAL IV ONE (06:45)
[2020-09-13] MEDS ORDERED: DEXTROSE 50% 50 ML SYR IVP ONE (06:45)
[2020-09-13] MEDS ORDERED: NACL 0.9% 1,000 ML IV ONE (07:00)
[2020-09-13] MEDS ORDERED: CALCIUM GLUCONATE 10% 1000 MG/10 ML VIAL IVP ONE (07:00)
--- NOTE | 2020-09-13 07:10 | NUR ---
GAVE REPORT TO ONUR GORDON. TRANSFER OF CARE AT THIS TIME.
--- NOTE | 2020-09-13 08:49 | NUR ---
ATTEMPTING TO CONTACT DR FLEMING REGARDING CRIT VALUE OF TROP 0.099, CIRCUIT JUDGE STATES THEY WILL CALL BACK
--- NOTE | 2020-09-13 09:40 | NUR ---
Patient will be admitted to care of Dr Villarreal. Admited to tele. Will go to room 108A. Belongings list completed. Report to Soha MOHR.
--- NOTE | 2020-09-13 10:00 | NUR ---
Pt admitted to room 108A from ED via gurney. Pt is aaox1, no signs of distress. Right chest dressing clean, dry, and intact. Right upper arm IV 18G intact and asymptomatic. Britt cath in place and draining clear yellow urine. Call light within reach. Bed alarm on.
--- NOTE | 2020-09-13 10:06 | NUR ---
PT ARRIVED TO FLOOR AT THIS TIME
--- NOTE | 2020-09-13 10:06 | NUR ---
Note kalli in EDM - 09/13/20 at 1008 by SHOSHANA Patient will be admitted to care of Dr Villarreal. Admited to Tele. Will go to room 108A. Belongings list completed. Report to Elaine MOHR.
[2020-09-13] MEDS: FUROSEMIDE 100 MG/10 ML VIAL IV SCH (11:58)
[2020-09-13 12:00] VITALS: BP 118/69
[2020-09-13] MEDS ORDERED: SODIUM ZIRCONIUM CYCLOSILICATE 10 GM POWD.PACK PO SCH (12:00)
--- NOTE | 2020-09-13 14:04 | NUR ---
DC PLANNIN MALE PATIENT WAS ADM[place] [facility] [place] DX OF HEART FAILURE AND ESRD. PT WAS DISCHARGED [facility] YESTERDAY 09/12/20. PT HAS A HX OF CAD ,CHF ,DM, LEG WOUND AND HTN. CXR SHOWED CHF. US CHEST SHOWED MODERATED PLEURAL EFFUSION. RAPID COVID TEST NEGATIVE. ADMINISTERED IVF, IV ABX ZOSYN LASIX IV AND CONTINUED HOME MEDS. ON BIPAP FIO2 70% SATING 98%. CONSULTED WITH NEPHRO AND ASSISTANT WOMEN'S SOCCER COACH. DC PLAN TO GO HOME WHEN STABLE CM TO FOLLOW RECEIVED A CALL FROM DAUGHTER RAE STATED WANTED TO SIGN UP FOR HOSPICE WITH [facility] FAXED TO [phone]. PER SNF IF PT HAS NO MEDICAL NO SNF WILL ACCEPT HIM UNLESS SHE WANTED TO TAKE HIM HOME. PER DAUGHTER WILL DISCUSS WITH FAMILY AND WILL CALL BACK CM TO FOLLOW
--- NOTE | 2020-09-13 14:49 | NUR ---
PATIENT HAS BEEN SCREENED AND CATEGORIZED HIGH NUTRITION RISK. PATIENT WILL BE SEEN WITHIN 1-2 DAYS OF ADMISSION. 09/13/20-09/14/20 [facility] REFERRAL FOR UNHEALED WOUND. LIZZETH TENA RD
[2020-09-13 16:00] VITALS: BP 109/61
[2020-09-13 18:20] LABS: ANION GAP 21.2 (8-16); CARBON DIOXIDE 24.6 mmol/L (21-32); CHLORIDE 99 mmol/L (98-107); GLUCOSE 122 mg/dL (74-106); POTASSIUM 5.8 mmol/L (3.5-5.1); SODIUM SERUM 139 mmol/L (136-145)
[2020-09-13 18:41] LABS: CREATININE 5.6 mg/dL (0.6-1.3); UREA NITROGEN, BLOOD 92 mg/dL (7-18)
--- NOTE | 2020-09-13 19:35 | NUR ---
RECEIVED REPORT FROM DAY NURSE, BROOKE, FOLLOWING COMMANDS. SR ON MONITOR, +3 EDEMA TO BILATERAL UPPER AND LOWER EXTREMITIES, PALPABLE PULSES. LUNGS CLEAR TO AUSCULTATION. ABD SOFT NON DISTENDED, ON RENAL DIET. HERNANDEZ CATH IN PLACE YELLOW URINE NOTED. SKIN NON INTACT, BLE EXCORIATIONS NOTED. IV TO R UPPER ARM PATENT SL. BED LOCKED IN LOWEST POSITION, SAFETY PRECAUTIONS IN PLACE. WILL CONTINUE TO OBSERVE
[2020-09-13 20:00] VITALS: BP 120/52
--- NOTE | 2020-09-13 23:00 | NUR ---
PT REQUESTING FOOD; SANDWICH GIVEN FOR SNACK. VSS, WILL CONTINUE TO OBSERVE
[2020-09-14] VITALS: BP 115/66
[2020-09-14 04:00] VITALS: BP 103/66
--- NOTE | 2020-09-14 04:30 | NUR ---
AM CARE DONE; LINEN CHANGED. PT TURNED AND REPOSITIONED. WILL CONTINUE TO OBSERVE
--- NOTE | 2020-09-14 07:28 | NUR ---
REPORT GIVEN TO DAY SHIFT FOR CONTINUITY OF CARE
--- NOTE | 2020-09-14 07:28 | NUR ---
RECEIVED PATIENT FROM NIGHT NURSE. PATIENT IN BED SLEEPING, CHEST NOTED RISING. NO NOTED DISTRESS AT THIS TIME. HERNANDEZ NOTED IN PLACE. CRISTINA 18G SL. HOB ELEVATED. SAFETY MEASURES IN PLACE. CALL LIGHT WITHIN REACH. WILL CONTINUE TO MONITOR.
[2020-09-14 08:00] VITALS: BP 116/68
[2020-09-14] MEDS: FUROSEMIDE 100 MG/10 ML VIAL IV SCH (09:42)
--- NOTE | 2020-09-14 09:50 | NUR ---
PATIENT IN BED AWAKE AND ALERT. RESPONDING APPROPRIATELY TO STAFF. MORNING ROUTINE MEDICATION GIVEN. PATIENT TOLERATED WELL. CRISTINA 18G INTACT AND PATENT, SL. GENERALIZED EDEMA NOTED. FALL PRECAUTION OBSERVED. HERNANDEZ DRAINING YELLOW URINE. FLUIDS ENCOURAGED. PATIENT TOLERATED WELL. RESP EVEN AND UNLABORED AT THIS TIME. NO PAIN STATED. HOB ELEVATED. SAFETY MEASURES IN PLACE. CALL LIGHT WITHIN REACH. WILL CONTINUE TO MONITOR.
[2020-09-14 12:00] VITALS: BP 123/75
--- NOTE | 2020-09-14 12:01 | NUR ---
PATIENT IN BED SLEEPING, CHEST NOTED RISING. NO NOTED DISTRESS AT THIS TIME. CALL LIGHT WITHIN REACH. WILL CONTINUE TO MONITOR.
--- NOTE | 2020-09-14 13:11 | NUR ---
09/14/20 RD INITIAL ASSESSMENT COMPLETED PLEASE REFER TO NUTRITION ASSESSMENT UNDER CARE ACTIVITY FOR ESTIMATED NUTRITIONAL NEEDS. RD RECOMMENDATIONS: 1. CONTINUE RENAL DIET TOLERATED. 2. WILL ADD NEPRO BID TO OPTIMIZE NUTRITION INTAKE PT HAS POOR PO INTAKE. 3. RD WILL F/U 2-3 DAYS; HIGH RISK. THELMA OSBORN, RD
--- NOTE | 2020-09-14 14:10 | NUR ---
PATIENT IN BED SLEEPING, CHEST NOTED RISING. NO NOTED DISTRESS AT THIS TIME. CALL LIGHT WITHIN REACH. WILL CONTINUE TO MONITOR.
--- NOTE | 2020-09-14 15:00 | NUR ---
JUSTIN-ONUR FROM [facility] CAME TO EVALUATE PT. DR. FLEMING NOTIFIED.
[2020-09-14 16:00] VITALS: BP 132/67
--- NOTE | 2020-09-14 16:05 | NUR ---
PERSONAL CARE RENDERED, ASSISTED MENTALLY IMPAIRED TEACHER. PATIENT TOLERATED WELL. PATIENT AWAKE AND RESPONDING WELL WITH STAFF. HOSPICE NURSE AT BEDSIDE FOR ASSESSMENT. NO NOTED DISTRESS. CALL LIGHT WITHIN REACH. WILL CONTINUE TO MONITOR.
--- NOTE | 2020-09-14 18:30 | NUR ---
PATIENT IN BED SLEEPING, CHEST NOTED RISING. NO NOTED DISTRESS. CALL LIGHT WITHIN REACH. WILL CONTINUE TO MONITOR.
--- NOTE | 2020-09-14 19:05 | NUR ---
ENDORSED PATIENT TO NIGHT NURSE. PATIENT IN STABLE CONDITION.
--- NOTE | 2020-09-14 19:10 | NUR ---
RECEIVED BEDSIDE REPORT FROM DAY SHIFT NURSE FOR CONTINUITY OF CARE. PT IS AWAKE, LAYING IN SEMI FOWLERS POSITION. ON 2L O2 NC WITH BREATHING UNLABORED. ON TELE MONITORING. HERNANDEZ CATH IN PLACE. WOUNDS ON SACRAL AND BILATERAL LOWER EXTREMITIES. WILL ASSESS SHORTLY. IV IS IN THE RIGHT UPPER ARM 18 GAUGE SALINE LOCKED. PT IS STABLE AT THIS TIME. PLAN OF CARE DISCUSSED. FALL AND STANDARD PRECAUTIONS IN PLACE.
[2020-09-14 20:00] VITALS: BP 120/99
--- NOTE | 2020-09-14 21:30 | NUR ---
PT IS AWAKE AND LAYING IN SEMI FOWLERS POSITION. PT WAS REPOSITIONED. PILLOWS IN PLACE TO SUPPORT BONY REGIONS. DRESSINGS FOR BILATERAL LE WOUNDS INTACT. FLACC 0. TV TURNED ON REQUESTED. PT IS STABLE.
--- NOTE | 2020-09-14 23:00 | NUR ---
DURING TURNING, NOTICED PT HAS A LARGE BRUISE ON THE LEFT SIDE OF THE BACK. BRUISE IS PURPLE IN COLOR. PT DENIES PAIN WITH THE BRUISE.
[2020-09-15] VITALS: BP 117/64
--- NOTE | 2020-09-15 01:00 | NUR ---
PT WAS TURNED AND REPOSITIONED. PT WAS GIVEN JUICE REQUESTED. NO RESPIRATORY DISTRESS NOTED. NC IN PLACE RUNNING 2L O2. DENIES PAIN. PT IS STABLE AT THIS TIME.
--- NOTE | 2020-09-15 03:00 | NUR ---
PT IS SLEEPING. NC IN PLACE WITH O2 AT 2L. BREATHING UNLABORED. IV IS INTACT AND PATENT. NO SIGNS OF DISTRESS OR PAIN. PT IS STABLE.
[2020-09-15 04:00] VITALS: BP 107/65
--- NOTE | 2020-09-15 05:00 | NUR ---
PT IS AWAKE, A&OX2. PT IS STABLE. DENIES PAIN. IV IS INTACT FLUSHING WELL. BREATHING UNLABORED. PT WAS REPOSITIONED. PILLOWS PLACED UNDERNEATH BONY REGIONS. NO DISTRESS AT THIS TIME.
[2020-09-15 05:49] VITALS: BP 107/65
--- NOTE | 2020-09-15 07:20 | NUR ---
ENDORSED PT TO DAY SHIFT NURSE FOR CONTINUITY OF CARE. PT IS AWAKE AND SPEAKING APPROPRIATELY. NO DISTRESS NOTED. PLAN OF CARE DISCUSSED.
--- NOTE | 2020-09-15 07:30 | NUR ---
RECEIVED BEDSIDE REPORT FROM NIGHT RN. PT AWAKE IN BED, HOB ELEVATED. AOX2, ABLE TO MAKE NEEDS KNOWN. NO C/O PAIN, RESPIRATIONS ARE EVEN AND UNLABORED ON 2L NC. SKIN WARM AND DRY TO TOUCH. IV SITE ON CRISTINA 18G. PLAN OF CARE DISCUSSED. HERNANDEZ INTACT AND PATENT. SAFETY MEASURES IN PLACE. BED IN LOW POSITION. WILL CONTINUE TO MONITOR
[2020-09-15 08:00] VITALS: BP 117/65
--- NOTE | 2020-09-15 08:30 | NUR ---
DUE MEDS GIVEN
[2020-09-15] MEDS: FUROSEMIDE 100 MG/10 ML VIAL IV SCH (08:45)
--- NOTE | 2020-09-15 10:00 | NUR ---
REPORT GIVEN TO JARRETT MOHR IN [facility]
--- NOTE | 2020-09-15 10:30 | NUR ---
AWAKE, NO C/O PAIN, NO SOB, WITH EPISODES OF WHEEZING, HOB ELEVATED
--- NOTE | 2020-09-15 11:10 | NUR ---
PT PICKED UP BY TRANSPORT TO [facility]. FAMILY NOTIFIED
== END 2020-09-15 11:30 | disposition hospice, inpatient (51) | DRG 314 ==
LOC: MED 03:05 → MTU 08:55
PROVIDERS: ADMIT Hospitalist; ATTEND Hospitalist
DX: T82.524A Displacement of infusion catheter, initial encounter (principal); N18.6 End stage renal disease; G93.41 Metabolic encephalopathy; N39.0 Urinary tract infection, site not specified; I13.2 Hypertensive heart and chronic kidney disease with heart failure and with stage 5 chronic kidney disease, or end stage renal disease; Z51.5 Encounter for palliative care; I25.2 Old myocardial infarction; Z20.822 Contact with and (suspected) exposure to COVID-19; E03.9 Hypothyroidism, unspecified; E11.22 Type 2 diabetes mellitus with diabetic chronic kidney disease; E87.5 Hyperkalemia; I48.91 Unspecified atrial fibrillation; N20.0 Calculus of kidney; E78.5 Hyperlipidemia, unspecified; I50.9 Heart failure, unspecified; J44.9 Chronic obstructive pulmonary disease, unspecified; D64.9 Anemia, unspecified; I25.5 Ischemic cardiomyopathy; D69.6 Thrombocytopenia, unspecified; R09.02 Hypoxemia; Y83.8 Other surgical procedures as the cause of abnormal reaction of the patient, or of later complication, without mention of misadventure at the time of the procedure; Z99.2 Dependence on renal dialysis; Y92.89 Other specified places as the place of occurrence of the external cause
CPT/HCPCS: 36415; 71250; 80048; 80053; 81001; 84484; 85025; 87081; 87086; 93005; 96361; 96374; 96375; 99285; J0610; J1815; J1940